=== PATIENT | male | born 1965 | race American Indian/Alaskan Native ===

== ENCOUNTER → 2019-12-07 15:50 | Outpatient (BNVA) | payer OTHER, SELFPAY | PROVIDERS: PCP Family Medicine; Referring Provider Family Medicine; Visit Provider Internal Medicine | DX: E11.65 Type 2 diabetes mellitus with hyperglycemia (principal); E21.3 Hyperparathyroidism, unspecified; I10 Essential (primary) hypertension | CPT/HCPCS: 99204 ==

== ENCOUNTER 2019-12-07 16:56 | Outpatient (CLI) | payer OTHER, SELFPAY ==
[2019-12-07 18:07] LABS: Blood Urea Nitrogen 15 mg/dL (6-20); Calcium 11.1 mg/dL (8.5-10.5); Carbon Dioxide 27 mmol/L (22-29); Chloride 101 mmol/L (98-107); Glomerular Filtration Rate 77.6 mL/min (90-130); Glucose 239 mg/dL (65-115); Osmolality Calculated 297 mOsm/kg (285-295); Phosphorus 2.3 mg/dL (2.5-4.5); Sodium 139 mmol/L (136-145)
== END 2019-12-07 16:57 | disposition home or self-care (01) ==
LOC: LAB 17:09
PROVIDERS: PCP Family Medicine; Visit Provider Internal Medicine
DX: E21.3 Hyperparathyroidism, unspecified (principal)
CPT/HCPCS: 36415; 80048; 84100

== ENCOUNTER 2019-12-19 15:10 | Outpatient (CLI) | payer OTHER, SELFPAY ==
--- NOTE | 2019-12-19 15:15 | USCV_ITS ---
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
--- NOTE | 2019-12-19 15:15 | XR_ITS ---
WS: [id number] XR knee LT 3V* [id number] REASON FOR EXAM: ACUTE PAIN OF LEFT KNEE FINDINGS: Joint spaces of the left knee are well preserved. No fracture or other focal bony abnormality is identified. No significant soft tissue abnormality is noted. XR/XR knee LT 3V* [id number] IMPRESSION: No acute abnormality of the left knee.
== END 2019-12-19 15:11 | disposition home or self-care (01) ==
LOC: US 15:13
PROVIDERS: PCP Family Medicine; Visit Provider Family Medicine
DX: M25.562 Pain in left knee (principal)
CPT/HCPCS: 73562; 93922

== ENCOUNTER → 2020-04-04 15:44 | Outpatient (BNVA) | payer OTHER, SELFPAY | PROVIDERS: PCP Family Medicine; Visit Provider Internal Medicine | DX: E11.65 Type 2 diabetes mellitus with hyperglycemia (principal); E21.3 Hyperparathyroidism, unspecified; I10 Essential (primary) hypertension | CPT/HCPCS: 99214 ==

== ENCOUNTER 2020-04-04 16:55 | Outpatient (CLI) | payer OTHER, SELFPAY ==
[2020-04-04 19:13] LABS: Estmated Average Glucose 272; Hemoglobin A1C 11.1 % (4.0-6.0)
[2020-04-04 19:59] LABS: Calcium 11.4 mg/dL (8.5-10.5); Parathyroid Hormone 92.4 pg/mL (15-65)
== END 2020-04-04 16:56 | disposition home or self-care (01) ==
PROVIDERS: PCP Family Medicine; Visit Provider Internal Medicine
DX: E11.65 Type 2 diabetes mellitus with hyperglycemia (principal); E21.3 Hyperparathyroidism, unspecified
CPT/HCPCS: 36415; 82310; 83036; 83970

== ENCOUNTER → 2020-12-31 08:18 | Outpatient (BNVA) | payer MEDICARE, SELFPAY | PROVIDERS: PCP Family Medicine; Visit Provider Internal Medicine | DX: E11.65 Type 2 diabetes mellitus with hyperglycemia (principal); E21.3 Hyperparathyroidism, unspecified; E78.5 Hyperlipidemia, unspecified; Z79.4 Long term (current) use of insulin; Z79.84 Long term (current) use of oral hypoglycemic drugs; F17.200 Nicotine dependence, unspecified, uncomplicated | CPT/HCPCS: 36415; 80053; 80061; 82306; 82310; 83036; 83970; 99214 ==

== ENCOUNTER 2020-12-31 09:09 | Outpatient (CLI) | payer MEDICARE, SELFPAY ==
[2020-12-31 10:13] LABS: Alanine Aminotransferase 19 U/L (0-41); Albumin Level 4.4 g/dL (3.5-5.2); Alkaline Phosphatase 67 IU/L (40-130); Anion Gap 17.3 (5-19); Aspartate Amino Transferase 15 U/L (0-40); Blood Urea Nitrogen 19 mg/dL (6-20); Calcium 10.6 mg/dL (8.5-10.5); Carbon Dioxide 27 mmol/L (22-29); Chloride 93 mmol/L (98-107); Chol HDL Ratio 3.76 mg/dL (1.0-5.00); Cholesterol 139 mg/dL (0-200); Globulin 2.6 g/dL (1.3-4.6); Glomerular Filtration Rate 69.2 mL/min (90-130); Glucose 281 mg/dL (65-115); HDL Cholesterol 37 mg/dL (60-100); LDL Cholesterol Calculated 27 mg/dL (50-129); LDL HDL Ratio 0.73 RATIO (0.00-3.22); Osmolality Calculated 288 mOsm/kg (285-295); Potassium 4.3 mmol/L (3.5-5.1); Sodium 133 mmol/L (136-145); Total Bilirubin 0.4 mg/dL (0.15-1.2); Triglycerides 374 mg/dL (0-150)
[2020-12-31 10:22] LABS: Parathyroid Hormone 64.5 pg/mL (15-65)
[2020-12-31 10:31] LABS: Estmated Average Glucose 252; Hemoglobin A1C 10.4 % (4.0-6.0)
[2020-12-31 11:28] LABS: 25 Hydroxy Vitamin D 44 ng/mL (30-100)
== END 2020-12-31 09:10 | disposition home or self-care (01) ==
PROVIDERS: PCP Family Medicine; Visit Provider Internal Medicine
DX: E11.65 Type 2 diabetes mellitus with hyperglycemia (principal); E21.3 Hyperparathyroidism, unspecified; E78.5 Hyperlipidemia, unspecified
CPT/HCPCS: 36415; 80053; 80061; 82306; 82310; 83036; 83970

== ENCOUNTER 2021-02-12 14:42 | Outpatient (CLI) | payer MEDICARE, SELFPAY ==
--- NOTE | 2021-02-12 15:00 | USCV_ITS ---
Aldo Alcaraz Age: 55 Gender: M : 1965 Exam Date: 02/12/2021 14:50 Ordering Phys: Destinee Capone MD ([email or web address]) Technologist: Jean Claude Espinoza Single End Sewer Exam Location: [facility] [place] Indication: PVD RIGHT LEFT Brachial 170.00 mmHg Brachial 164.00 mmHg Pressure (mmHg) Waveform Pressure (mmHg) Waveform 185.00 Above Knee 183.00 142.00 Below Knee 153.00 147.00 .NET ARCHITECT 150.00 133.00 DPA 143.00 0.86 Ankle/Brachial Index 0.88 78.00 Pre-Exercise Toe Pressure 64.00 0.46 Pre-Exercise Toe/Brachial Index 0.38 FINDINGS Abnormal resting TAWNY o .86 on the right side and 0.88 on the left side Resting TBI of 0.46 on the right and 0.38 on the left. CONCLUSIONS 1. Abnormal resting TAWNY and TBI on the right side suggesting mild peripheral artery disease 2. Abnormal resting TAWNY and TBI on the left side suggesting mild to moderate peripheral arterial disease Dr Brenda Wright MD [facility] (Electronically Signed) Final Date: 14 February 2021 15:38 S
== END 2021-02-12 14:43 | disposition home or self-care (01) ==
LOC: RAD 14:50
PROVIDERS: PCP Family Medicine; Visit Provider Internal Medicine Cardiovascular Disease
DX: I73.9 Peripheral vascular disease, unspecified (principal)
CPT/HCPCS: 93923

== ENCOUNTER 2021-02-17 08:37 | Outpatient (CLI) | payer MEDICARE, SELFPAY ==
--- NOTE | 2021-02-17 08:46 | NM_ITS ---
WS: [id number] NUCLEAR MEDICINE PARATHYROID SCAN HISTORY: Hyperparathyroidism, unspecified TECHNIQUE: Patient is injected with 19.4mCi technetium 99m Sestamibi. Static imaging of the anterior neck and upper thorax submitted at injection time and one hour postinjection. Sternal notch marker an d chin markers are placed. FINDINGS: Normal symmetric thyroid uptake on the early and late imaging. Normal uptake in the submandibular gla nds. No asymmetric areas of uptake in the delayed imaging. No evidence of parathyroid adenoma. NM/NM parathyroid [id number] IMPRESSION: No evidence of parathyroid adenoma.
== END 2021-02-17 08:38 | disposition home or self-care (01) ==
LOC: RAD 08:40
PROVIDERS: PCP Family Medicine; Visit Provider Internal Medicine
DX: E21.3 Hyperparathyroidism, unspecified (principal)
CPT/HCPCS: 78070; A9500

== ENCOUNTER → 2021-07-08 08:01 | Outpatient (BNVA) | payer MEDICARE, SELFPAY | PROVIDERS: PCP Family Medicine; Visit Provider Internal Medicine | DX: E11.65 Type 2 diabetes mellitus with hyperglycemia (principal); E21.3 Hyperparathyroidism, unspecified; F17.200 Nicotine dependence, unspecified, uncomplicated; Z79.4 Long term (current) use of insulin; Z79.84 Long term (current) use of oral hypoglycemic drugs | CPT/HCPCS: 99214 ==

== ENCOUNTER → 2021-09-24 14:29 | Outpatient (BNVA) | payer MEDICARE, SELFPAY | PROVIDERS: PCP Family Medicine; Referring Provider Podiatrist Foot & Ankle Surgery; Visit Provider Podiatrist Foot & Ankle Surgery | DX: M79.671 Pain in right foot (principal); M21.611 Bunion of right foot | CPT/HCPCS: 73630 ==

== ENCOUNTER 2021-09-24 15:10 | Inpatient (IN) | payer MEDICARE, SELFPAY ==
[2021-09-24] VITALS (9 sets, daily range): BP systolic 92–164; BP diastolic 58–90; PULSE 77–84; RESP 16–24; TEMP 36.8–36.9; O2SAT 95–100; BMI 30.6
--- NOTE | 2021-09-24 15:57 | W.ED.WOUNDLC ---
HPI - Wound/Laceration General: Chief Complaint: Wound/Laceration Stated Complaint: Dr. Grayson sent for Right foot infection Time Seen by Provider: 09/24/21 15:37 Source: patient Mode of arrival: ambulatory Limitations: no limitations History of Present Illness: 55-year-old male presents emergency room with complaint of swollen infection on his right foot. Approximately a week ago he stepped on something with his right foot and a puncture wound he was seen in [place] was started on oral antibiotics and his tetanus was updated. Follow-up with Dr. Grayson today in the office x-rays were negative please foot shows significant ecchymotic changes prickliness third toe with streaking proximally. There is a lot of swelling and some skin sloughing around the puncture sites between the second and third metatarsals. Patient is diabetic. He also is a smoker and has a history of peripheral vascular disease. He previously has had strokes and has significant residual deficit from these. Arterial Doppler study of the right lower extremity from February 2021 reviewed in the chart. Onset (ago): week(s) Extremity Location: Right: foot Place: home Associated symptoms: Denies chills, fever(s), nausea or vomiting Review of Systems Const: Denies: fever(s), chills, body aches, change in appetite, fatigue or malaise ENMT: Denies: throat pain, ear or mastoid pain, nasal discharge or nasal congestion Card: Denies: chest pain, edema, dyspnea on exertion or orthopnea Resp: Denies: dyspnea, productive cough or non-productive cough GI: Denies: abdominal pain, nausea, vomiting, hematemesis, coffee ground emesis, diarrhea, constipation, bloating, hematochezia or melena : Denies: flank pain, dysuria, urinary frequency or urinary urgency Skin/Breast: Denies: rash or pruritus PFSH ED PFSH: Medical History Diabetes Diabetic neuropathy Diaphragmatic hernia without mention of obstruction or gangrene Hyperparathyroidism Hypertension Peripheral Vascular Disease Stricture and stenosis of esophagus Stroke Surgical History History of hip surgery Family History Father Diabetes Mother Diabetes Brother Cancer colon Social History Smoking and tobacco status: current every day smoker Alcohol intake: never Substance/Drug Use: former Date of last use: months ago Other details last substance use: Smoked methamphetmaine in the past. Denies ever injection use. Marital status: Physical Exam Const: GENERAL APPEARANCE: cooperative and comfortable ORIENTATION/CONSCIOUSNESS: Yes awake HENMT: COMMON NORMALS: normocephalic, atraumatic and hearing grossly normal bilaterally HEAD & SCALP: normocephalic and atraumatic Resp: COMMON NORMALS: normal respiratory effort, No retractions, No use of accessory muscles and clear to auscultation bilaterally AUSCULTATION: clear to auscultation bilaterally Cardio: COMMON NORMALS: regular rate, regular rhythm and No murmurs present (Cardio) RATE: regular rate RHYTHM: regular rhythm GI: COMMON NORMALS: Soft to palpation and No hepatosplenomegaly present AUSCULTATION: Yes normoactive bowel sounds PALPATION: Yes Soft to palpation, No Tenderness to palpation present (GI), No Guarding due to palpation present (GI) and Yes No hepatosplenomegaly present Extremity: OTHER: Right foot shows open puncture wound between the second third metatarsals on the sole of the foot distally. There is redness erythematous streaking proximally across the dorsum of the foot and the toe itself is significantly discolored violaceous almost black color. There is no active purulent drainage but some serous drainage which is scant. No palpable popliteal or inguinal lymphadenopathy is noted. Pulses in the right lower extremities difficult to palpate Skin: COMMON NORMALS: no rashes or lesions noted GENERAL SKIN EXAM: no rashes or lesions noted Course Vital Signs: Vital signs: Vital Signs Temperature 99.1 F 09/25/21 04:00 Pulse Rate 71 09/25/21 04:00 Respiratory Rate 18 09/25/21 04:00 Blood Pressure 135/95 09/25/21 04:00 Pulse Oximetry 97 09/25/21 04:00 Oxygen Delivery Me thod 09/25/21 04:00 MDM - Wound/Laceration Medical Decision Making Significant cellulitis with concern for gas and gangrenous changes in the toe. Cultures have been done is also concerned about patient's blood flow was not appear adequate for this to heal he previously had vascular studies he was reviewed in the chart. Patient started on vancomycin discussed with podiatry as well as with hospitalist service orders written. Medical Records I reviewed the patient's medical records. Lab Data I reviewed the patient's lab results. : 09/25/21 04:19 09/25/21 04:19 Laboratory Results WBC 15.8 10^3/uL (4.0-10.0) H 09/24/21 15:37 RBC 4.13 10^6/uL (4.1-5.3) 09/24/21 15:37 Hgb 12.7 g/dL (11.7-16.6) 09/24/21 15:37 Hct 38.6 % (42.0-52.0) L 09/24/21 15:37 MCV 93.5 fl (80-94) 09/24/21 15:37 MCH 30.8 pg (28.0-34.0) 09/24/21 15:37 MCHC 32.9 g/dL (30.0-36.0) 09/24/21 15:37 RDW 12.9 % (12.1-15.1) 09/24/21 15:37 Plt Count 291 10^3/cmm (130-400) 09/24/21 15:37 MPV 11.0 fL (7.4-10.4) H 09/24/21 15:37 Neut % (Auto) 80.4 % 09/24/21 15:37 Lymph % (Auto) 9.3 % 09/24/21 15:37 [place] % (Auto) 8.7 % 09/24/21 15:37 Eos % (Auto) 0.3 % 09/24/21 15:37 Baso % (Auto) 0.3 % 09/24/21 15:37 Neut # (Auto) 12.69 10^3/uL (1.8-7.7) H 09/24/21 15:37 Lymph # (Auto) 1.5 10^3/uL (0.8-4.8) 09/24/21 15:37 [place] # (Auto) 1.4 10^3/uL (0.2-0.9) H 09/24/21 15:37 Eos # (Auto) 0.0 10^3/uL (0.0-0.8) 09/24/21 15:37 Baso # (Auto) 0.1 10^3/uL (0.0-0.1) 09/24/21 15:37 Nucleated RBC % (auto) 0 % 09/24/21 15:37 Nucleated RBCs # 0.0 /100WBC 09/24/21 15:37 Sodium 136 mmol/L (136-145) 09/24/21 15:37 Potassium 4.1 mmol/L (3.5-5.1) 09/24/21 15:37 Chloride 97 mmol/L (98-107) L 09/24/21 15:37 Carbon Dioxide 22 mmol/L (22-29) 09/24/21 15:37 Anion Gap 21.1 (5-19) H 09/24/21 15:37 BUN 19 mg/dL (6-20) 09/24/21 15:37 Creatinine 1.6 mg/dL (0.7-1.2) H 09/24/21 15:37 GFR Calculation 44.9 mL/min (90-130) L 09/24/21 15:37 Glucose 127 mg/dL (65-115) H 09/24/21 15:37 Calculated Osmolality 286 mOsm/kg (285-295) 09/24/21 15:37 Calcium 10.7 mg/dL (8.5-10.5) H 09/24/21 15:37 Total Bilirubin 0.7 mg/dL (0.15-1.2) 09/24/21 15:37 AST 14 U/L (0-40) 09/24/21 15:37 ALT 15 U/L (0-41) 09/24/21 15:37 Alkaline Phosphatase 94 U/L (40-130) 09/24/21 15:37 C-Reactive Protein 226.2 mg/L (0.0-4.9) H 09/24/21 15:37 Total Protein 7.0 g/dL (6.6-8.7) 09/24/21 15:37 Albumin 3.9 g/dL (3.5-5.2) 09/24/21 15:37 Globulin 3.1 g/dL (1.3-4.6) 09/24/21 15:37 Discharge Plan Discharge Patient Disposition: Admitted As Inpatient Admit Provider: Grayson Lacy Clinical Impression: Puncture wound of foot, right, complicated, Diabetic peripheral neuropathy associated with type 2 diabetes mellitus, Soft tissue emphysema, Cellulitis of right foot, GARETH (acute kidney injury), Hypertension, Uncontrolled type 2 diabetes mellitus Condition: Stable Coding Level of Care Code ED Mixing House Operator for Chg Fwd Exam Detailed
[2021-09-24 16:05] LABS: Basophils # 0.1 10^3/uL (0.0-0.1); Basophils % 0.3 %; Eosinophils % 0.3 %; Hematocrit 38.6 % (42.0-52.0); Hemoglobin 12.7 g/dL (11.7-16.6); Lymphocytes # 1.5 10^3/uL (0.8-4.8); Lymphocytes % 9.3 %; Mean Corpuscular HGB Conc 32.9 g/dL (30.0-36.0); Mean Corpuscular Hemoglobin 30.8 pg (28.0-34.0); Mean Corpuscular Volume 93.5 fl (80-94); Monocytes # 1.4 10^3/uL (0.2-0.9); Monocytes % 8.7 %; Neutrophils # 12.69 10^3/uL (1.8-7.7); Neutrophils % 80.4 %; Nucleated Red Blood Cells % 0 %; Platelet Count 291 10^3/cmm (130-400); Red Blood Count 4.13 10^6/uL (4.1-5.3); Red Cell Distribution Width 12.9 % (12.1-15.1); White Blood Count 15.8 10^3/uL (4.0-10.0)
--- NOTE | 2021-09-24 16:06 | ECG_ITS ---
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 Measurements Intervals [place] Rate: 80 P: 20 [place]: 153 QRS: -18 QRSD: 96 T: 48 QT: 345 QTc: 399 Interpretive Statements SINUS RHYTHM WITH OCCASIONAL VENTRICULAR PREMATURE COMPLEXES Compared to ECG 10/26/2018 06:56:49 Ventricular premature complex(es) now present Electronically Signed On 09-24-2021 17:16:42 CDT by Que Gomes M.D. [email or web address]
[2021-09-24 16:24] LABS: Alanine Aminotransferase 15 U/L (0-41); Albumin Level 3.9 g/dL (3.5-5.2); Alkaline Phosphatase 94 U/L (40-130); Anion Gap 21.1 (5-19); Aspartate Amino Transferase 14 U/L (0-40); Blood Urea Nitrogen 19 mg/dL (6-20); C Reactive Protein 226.2 mg/L (0.0-4.9); Calcium 10.7 mg/dL (8.5-10.5); Carbon Dioxide 22 mmol/L (22-29); Chloride 97 mmol/L (98-107); Globulin 3.1 g/dL (1.3-4.6); Glomerular Filtration Rate 44.9 mL/min (90-130); Glucose 127 mg/dL (65-115); Osmolality Calculated 286 mOsm/kg (285-295); Potassium 4.1 mmol/L (3.5-5.1); Sodium 136 mmol/L (136-145); Total Bilirubin 0.7 mg/dL (0.15-1.2)
[2021-09-24] MEDS: vancomycin 1,000 MG in sodium chloride 0.9% 250 ML 250 MG IV (16:54)
--- NOTE | 2021-09-24 16:56 | PC.NURSE ---
PT RIGHT POST TIB PULSE 80 BPM BY DOPPLER
--- NOTE | 2021-09-24 17:05 | PC.NURSE ---
PT PLACED ON CONTINUOUS NIBP, SPO2, AND CM
--- NOTE | 2021-09-24 18:07 | P.CONIM_ITS ---
Providers/Reason For Consult Consulting Physician/Specialty*: Podiatry Reason for Consult*: Right foot gas gangrene Attending Physician: Grayson Lacy Primary Care Provider: Dillon Stein History of Present Illness History of Present Illness Aldo Alcaraz is a 55-year-old male who presents to ED after being sent from [facility] (Dr. Grayson) with puncture wound to the right forefoot.? He noticed a metal staple inside of his shoe that was poking up into his foot this past weekend and went to the emergency department at [facility] in [place] on 09/22/2021.? They stated that at that point his daughter who works at the emergency department here at [facility] noticed that his foot had normal color, no redness or bruising.? They report a single dose of IM antibiotic and being discharged on oral antibiotics which he began taking immediately.? Since Wednesday he has experienced increased redness and bruising to the right foot that is now starting to streak to the level of the ankle.? Patient is uncontrolled diabetic with peripheral polyneuropathy.? Patient denies any subjective nausea, vomiting, fever, chills, shortness of breath or chest pain. Review of Systems General: Reports: 10 or more systems reviewed and unremarkable except in HPI and below Musc: Reports: joint stiffness Skin/Breast: Reports: non-healing lesions and lesions Neuro: Reports: numbness in extremities Medications/Allergies Home Medications Medication Instructions Recorded Confirmed Last Taken Type amlodipine 10 mg tablet 10 mg PO BEDTIME 12/07/19 09/24/21 09/23/21 History atorvastatin 40 mg tablet 40 mg PO BEDTIME 12/07/19 09/24/21 09/23/21 History baclofen 10 mg tablet 10 mg PO BID PRN Pain 12/07/19 09/24/21 09/24/21 History cholecalciferol (vitamin D3) 50 50 mcg PO DAILY 12/07/19 09/24/21 09/24/21 History mcg (2,000 unit) capsule clopidogrel 75 mg tablet 75 mg PO DAILY 12/07/19 09/24/21 09/24/21 History fluoxetine 20 mg tablet 20 mg PO DAILY 12/07/19 09/24/21 09/24/21 History lisinopril 40 mg tablet 40 mg PO DAILY 12/07/19 09/24/21 09/24/21 History pantoprazole 20 mg tablet,delayed 20 mg PO DAILY 12/07/19 09/24/21 09/24/21 History release tamsulosin 0.4 mg capsule 0.4 mg PO BEDTIME 12/07/19 09/24/21 09/23/21 History metformin 1,000 mg tablet 1,000 mg PO BID #180 tabs 12/08/19 09/24/21 09/24/21 Rx atenolol 100 mg tablet 100 mg PO BEDTIME 08/20/20 09/24/21 09/23/21 History aspirin 81 mg tablet,delayed 325 mg PO DAILY 10/01/20 09/24/21 09/24/21 History release blood-glucose meter,continuous #1 ea 07/17/21 09/24/21 Unknown Rx (Dexcom G6 Aircraft Engine Mechanic Supervisor) blood-glucose sensor (Dexcom G6 #3 ea 07/17/21 09/24/21 Unknown Rx Sensor) blood-glucose transmitter (Dexcom #1 ea 07/17/21 09/24/21 Unknown Rx G6 Transmitter) flash glucose scanning reader #1 ea 07/30/21 09/24/21 Unknown Rx (FreeStyle April 2 [place]) flash glucose sensor (FreeStyle #6 ea 07/30/21 09/24/21 Unknown Rx April 2 Sensor) hydroxyzine HCl 25 mg tablet 25 mg PO BID PRN Anxiety 08/17/21 09/24/21 Unknown History ciprofloxacin HCl 500 mg tablet 500 mg PO BID 09/24/21 09/24/21 09/24/21 History gabapentin 400 mg capsule 400 mg PO BID 09/24/21 09/24/21 09/24/21 History hydralazine 10 mg tablet 10 mg PO Q6H PRN Blood Pressure 09/24/21 09/24/21 09/24/21 History hydrochlorothiazide 25 mg tablet 25 mg PO DAILY 09/24/21 09/24/21 09/24/21 History insulin detemir U-100 100 unit/mL 44 unit SUBCUT BID 09/24/21 09/24/21 09/24/21 History (3 mL) subcutaneous pen (Levemir FlexTouch U-100 Insulin) insulin lispro 100 unit/mL See Rx Instructions .Route .COMPLEX 09/24/21 09/24/21 09/24/21 History subcutaneous pen (Humalog KwikPen (U-100) Insulin) Allergies Allergy/AdvReac Type Severity Reaction Status Date / Time No Known Allergies Allergy Verified 09/24/21 14:27 PFSH Acute PFSH: Medical History Diabetes Hyperparathyroidism Hypertension Peripheral Vascular Disease Stroke Surgical History History of hip surgery Family History Father Diabetes Mother Diabetes Brother Cancer colon Social History Smoking and tobacco status: current every day smoker Alcohol intake: never Vitals/I&O/Wt Last Vital Signs Temp 98.2 F 09/24/21 15:29 Pulse 80 09/24/21 16:19 Resp 24 H 09/24/21 15:29 BP 92/63 09/24/21 15:29 Pulse Ox 98 09/24/21 15:29 O2 Del Method 09/24/21 15:29 Weight last 48 hrs Weight 245 lb Physical Exam Narrative: GENERAL: Patient is alert and oriented ?3 and in no acute distress.? The following is a focused right lower extremity exam.? Patient accompanied by his daughter. VASCULAR: Dorsalis pedis nonpalpable.? Posterior tibial arteries diminished.? Capillary refill time less than 5 seconds to the distal hallux bilaterally. Calf is supple and nontender proximally and distally.? Decreased pedal hair growth.? Decreased skin temperature at the distal tuft of the right third toe compared to adjacent toes. NEUROLOGICAL: Protective sensation intact 0/10 sites, tested with [place] Marjorie monofilament to bilateral feet. DERMATOLOGICAL: [place] dusky appearance/blue undertone to the right third toe.? Puncture wound subthird metatarsal head right plantar forefoot probes medially to the second intermetatarsal space also probes laterally and dorsal to the third intermetatarsal space and can be probed to the dorsum of the foot.? Wound measures 0.9 cm in length, 0.6 cm in width and probes 3 cm deep.? Periwound erythema appreciated with proximal streaking to the level of the midfoot almost reaches near the ankle anteriorly.? Clear fluid-filled bullae to the plantar sulcus of the right third toe.? MUSCULOSKELETAL: No pain with palpation to the right plantar forefoot secondary to neuropathy.? No pain with posterior calf squeeze. IMAGIN views of the left foot reviewed which show increased soft tissue density around the third digit of the right foot. Radiolucencies consistent with subcutaneous emphysema visualized in the soft tissues surrounding the right third proximal phalanx extending into the third intermetatarsal space. Data : 09/24/21 15:37 09/24/21 15:37 Micro: Microbiology 09/24/21 16:26 Blood Culture - Preliminary Blood SPECIMEN COLLECTED 09/24/21 16:20 Blood Culture - Preliminary Blood SPECIMEN COLLECTED A&P Assessment and plan (1) Cellulitis of right foot: Status: Acute (2) Soft tissue emphysema: Status: Acute (3) Puncture wound of foot, right, complicated: Status: Acute (4) Diabetic peripheral neuropathy associated with type 2 diabetes mellitus: Status: Acute Consult Attestations Medical Necessity Statement: PLAN: -NPO at midnight for procedure 09/25/21--I&D right foot w/possible 3rd toe amp -Patient seen and evaluated in the emergency department -Lengthy discussion was had with the patient and patient's about the extent of the infection of the right foot that necessitates surgical intervention which includes incision and drainage and likely amputation of right foot third digit. All patient questions were answered patient satisfaction at this time. -Surgery tomorrow 09/25/21 -Continue broad spectrum IV antibiotics -Strongly recommend vascular intervention as patient has longstanding peripheral arterial disease. Surgical intervention will be for source control. However, if vascular compromise is not addressed patient runs a risk of worsening infection and limb loss -Monitor wound cultures Coding Level of Care Code Acute Microsoft Developer for g Fwd Diagnoses Cellulitis of right foot L03.115 Soft tissue emphysema T79.7XXA Puncture wound of foot, right, complicated S91.331A Diabetic peripheral neuropathy associated with type 2 diabetes mellitus E11.42
[2021-09-24] MEDS: HYDROmorphone 1 mg/mL INJ 1 mL IVP (18:54)
--- NOTE | 2021-09-24 19:24 | P.HP_ITS ---
Providers/Chief Complaint Admitting Physician: Grayson Lacy Primary Care Provider: Dillon Stein Chief Complaint: Dr. Grayson sent for Right foot infection History of Present Illness Pleasant 55-year-old gentleman with past history of CVA, with residual aphasia diabetes, PAD, HTN, HLD, smoking came to ER after initially assessment earlier today at podiatry clinic due to nonhealing wound of the right plantar surface of the foot, with foot swelling, swelling of the toes, as well as dusky patchy purplish discoloration of third right toe, with tracking up on the dorsal foot. He has been having quite a bit of pain in the right foot as well. The wound reportedly originated after a puncture by a staple a week ago. He was initially seen at [facility] ER 09/23, he had received an antibiotic infusion, and was discharged and appears on a course of 10 days of ciprofloxacin. He has otherwise been in similar state of health, after stroke he usually ambulates sometimes using a cane. He has been cutting down on smoking. He has known PAD, with last lower extremity arterial Doppler study on 02/12/2021 which showed abnormal TAWNY and TBI, on the right side TAWNY 0.86, TBI 0.46. On the left side TAWNY 0.88, TBI 0.38. PT pulses reported dopplerable by bedside Doppler in ER. Review of Systems Const: Denies: fever(s), chills, body aches or malaise Eyes: Denies: change in vision, eye discomfort or eye redness ENMT: Denies: throat pain, oral sores or ear or mastoid pain Card: Denies: chest pain, edema, pre-syncope or dyspnea on exertion Resp: Denies: dyspnea, productive cough, change in phlegm color or hemoptysis GI: Denies: abdominal pain, nausea, vomiting, diarrhea, constipation, hematochezia or melena : Denies: flank pain, difficulty urinating, urinary frequency or hematuria Musc: Reports: extremity pain and extremity swelling; Denies: back pain, joint swelling or joint redness Skin/Breast: Reports: erythema and non-healing lesions Neuro: Denies: headache(s), numbness in extremities, weakness in extremities, dizziness, confusion or seizure-like activity Endo: Denies: polyuria or polydipsia Pb/Lymph: Denies: easy bleeding or tender lymph nodes All/Imm: Denies: urticaria or tongue swelling Medications/Allergies Home Medications Medication Instructions Recorded Confirmed Last Taken Type amlodipine 10 mg tablet 10 mg PO BEDTIME 12/07/19 09/24/21 09/23/21 History atorvastatin 40 mg tablet 40 mg PO BEDTIME 12/07/19 09/24/21 09/23/21 History baclofen 10 mg tablet 10 mg PO BID PRN Pain 12/07/19 09/24/21 09/24/21 History cholecalciferol (vitamin D3) 50 50 mcg PO DAILY 12/07/19 09/24/21 09/24/21 History mcg (2,000 unit) capsule clopidogrel 75 mg tablet 75 mg PO DAILY 12/07/19 09/24/21 09/24/21 History fluoxetine 20 mg tablet 20 mg PO DAILY 12/07/19 09/24/21 09/24/21 History lisinopril 40 mg tablet 40 mg PO DAILY 12/07/19 09/24/21 09/24/21 History pantoprazole 20 mg tablet,delayed 20 mg PO DAILY 12/07/19 09/24/21 09/24/21 History release tamsulosin 0.4 mg capsule 0.4 mg PO BEDTIME 12/07/19 09/24/21 09/23/21 History metformin 1,000 mg tablet 1,000 mg PO BID #180 tabs 12/08/19 09/24/21 09/24/21 Rx atenolol 100 mg tablet 100 mg PO BEDTIME 08/20/20 09/24/21 09/23/21 History aspirin 81 mg tablet,delayed 325 mg PO DAILY 10/01/20 09/24/21 09/24/21 History release blood-glucose meter,continuous #1 ea 07/17/21 09/24/21 Unknown Rx (Dexcom G6 Cold Header) blood-glucose sensor (Dexcom G6 #3 ea 07/17/21 09/24/21 Unknown Rx Sensor) blood-glucose transmitter (Dexcom #1 ea 07/17/21 09/24/21 Unknown Rx G6 Transmitter) flash glucose scanning reader #1 ea 07/30/21 09/24/21 Unknown Rx (FreeStyle April 2 [place]) flash glucose sensor (FreeStyle #6 ea 07/30/21 09/24/21 Unknown Rx April 2 Sensor) hydroxyzine HCl 25 mg tablet 25 mg PO BID PRN Anxiety 08/17/21 09/24/21 Unknown History ciprofloxacin HCl 500 mg tablet 500 mg PO BID 09/24/21 09/24/21 09/24/21 History gabapentin 400 mg capsule 400 mg PO BID 09/24/21 09/24/21 09/24/21 History hydralazine 10 mg tablet 10 mg PO Q6H PRN Blood Pressure 09/24/21 09/24/21 09/24/21 History hydrochlorothiazide 25 mg tablet 25 mg PO DAILY 09/24/21 09/24/21 09/24/21 History insulin detemir U-100 100 unit/mL 44 unit SUBCUT BID 09/24/21 09/24/21 09/24/21 History (3 mL) subcutaneous pen (Levemir FlexTouch U-100 Insulin) insulin lispro 100 unit/mL See Rx Instructions .Route .COMPLEX 09/24/21 09/24/21 09/24/21 History subcutaneous pen (Humalog KwikPen (U-100) Insulin) Allergies Allergy/AdvReac Type Severity Reaction Status Date / Time No Known Allergies Allergy Verified 09/24/21 14:27 PFSH Acute PFSH: Medical History (Updated 09/24/21 @ 19:47 by Grayson Lacy MD) Diabetes Diabetic neuropathy Diaphragmatic hernia without mention of obstruction or gangrene Hyperparathyroidism Hypertension Peripheral Vascular Disease Stricture and stenosis of esophagus Stroke Surgical History History of hip surgery Family History Father Diabetes Mother Diabetes Brother Cancer colon Social History Smoking and tobacco status: current every day smoker Alcohol intake: never Substance/Drug Use: former Date of last use: months ago Other details last substance use: Smoked methamphetmaine in the past. Denies ever injection use. Marital status: Vitals/I&O/Wt Last Vital Signs Temp 98.2 F 09/24/21 15:29 Pulse 77 09/24/21 18:30 Resp 20 H 09/24/21 18:54 BP 127/69 09/24/21 18:30 Pulse Ox 100 09/24/21 18:54 O2 Del Method 09/24/21 18:30 09/24/21 09/24/21 09/24/21 06:59 14:59 22:59 Intake Total 250 / 250 Balance 250 / 250 Weight last 48 hrs Weight 111.13 kg Physical Exam Const: COMMON NORMALS: patient oriented x3 and alert GENERAL APPEARANCE: cooperative ORIENTATION/CONSCIOUSNESS: Yes awake HENMT: COMMON NORMALS: oropharynx normal Neck/C-Spine: COMMON NORMALS: no JVD Resp: COMMON NORMALS: normal respiratory effort and clear to auscultation bilaterally AUSCULTATION: clear to auscultation bilaterally Cardio: COMMON NORMALS: no JVD, regular rhythm, S1 normal heart sound present, S2 normal heart sound present and No murmurs present (Cardio) RHYTHM: regular rhythm HEART SOUNDS: S1 normal heart sound present and S2 normal heart sound present GI: COMMON NORMALS: Normal to inspection, nondistended, normoactive bowel sounds present, Soft to palpation and non-tender PALPATION: Yes Soft to palpation Extremity: COMMON NORMALS: no joint enlargement and no pedal edema OTHER: Erythema, mild swelling of distal right foot. Neuro: COMMON NORMALS: patient oriented x3 and moves all extremities SENSORIUM/ORIENTATION: Yes alert Skin: COMMON NORMALS: no rashes or lesions noted GENERAL SKIN EXAM: no rashes or lesions noted OTHER: Erythema of distal right foot, swelling and patchy irineo discoloration of third right toe Puncture wound on plantar right foot, 0.5 cm, currently no active drainage. Data : 09/24/21 15:37 09/24/21 15:37 Micro: Microbiology 09/24/21 16:26 Blood Culture - Preliminary Blood SPECIMEN COLLECTED 09/24/21 16:20 Blood Culture - Preliminary Blood SPECIMEN COLLECTED A&P Assessment and plan (1) Puncture wound of foot, right, complicated: Nonhealing puncture wound on plantar surface of the right foot, swelling of the distal foot, toes, purple patchy discoloration and swelling of the middle right toe tracking up on the dorsal foot. No foreign body noted on the x-ray. Fluid bolus dopplerable with bedside Doppler. Known PAD, ABIs as above. Leukocytosis 15.8, although so far not fitting sepsis criteria. Has been on ciprofloxacin, continue, but also needs gram-positive cultures, was started on vancomycin, continue. Clindamycin. Was assessed by podiatry in office, and podiatry consultation here appreciated for intraoperative evaluation, cleanout, possible third toe amputation. Still pressures appear to be above threshold for healing, however, podiatry recommendation appreciated with strong concern for nonhealing due to underlying PAD, will request consultation with cardiac interventionalist. Of note he also has GARETH as discussed with him and family which will complicate things with regards to CT angiogram or angiography if needed. We will obtain repeat Doppler ultrasound TAWNY, TBI (for possible). Discussed also concern for possibility of deeper tissue infection. Possibility of bone infection. Status: Acute (2) Cellulitis of right foot: Status: Acute (3) Soft tissue emphysema: Status: Acute (4) Diabetic peripheral neuropathy associated with type 2 diabetes mellitus: Status: Acute (5) GARETH (acute kidney injury): Creatinine up to 1.6. Hold lisinopril. Assess urine studies, kidney, bladder ultrasound. Status: Acute Plan Diabetes with peripheral neuropathy Smoking addiction: He has been cutting down on smoking. History of CVA with residual aphasia HTN Hyperparathyroidism Attestations Medical Necessity Statement*: Admission of over 2 midnights is anticipated for assessment of management of nonhealing puncture wound on the right foot, with resultant cellulitis and possibly deeper subcutaneous tissue infection. Coding Level of Care Code Acute Physical Aerodynamicist for ed [place] Diagnoses Puncture wound of foot, right, complicated S91.331A Cellulitis of right foot L03.115 Soft tissue emphysema T79.7XXA Diabetic peripheral neuropathy associated with type 2 diabetes mellitus E11.42 GARETH (acute kidney injury) N17.9
--- NOTE | 2021-09-24 20:09 | US_ITS ---
WS: [id number] Bilateral renal ultrasound, 09/24/2021 Clinical Data: johana Comparison: None. Findings: The right kidney measures 11.1 cm x 6.7 cm x 5.3 cm and the left kidney is 11.5 cm x 7.1 cm x 4.9 cm. There are no cysts, masses or hydronephrosis. The renal cortical margin is normal. No renal calculi are seen. The prostate measured 2.55 x 3.17 cm in transverse and AP diameter. The bladder was scanned and and had a prevoiding volume of 167 mL. The post void volume was 34 mL.. US/US renal BI with PV bladder Impression: 1. Negative bilateral renal ultrasound. 2. Prevoid volume of 167 mL and postvoid volume of 34 mL.
[2021-09-24] MEDS: heparin 5,000 unit/mL INJ 1 mL 5000 UNIT SUBCUT (21:33)
[2021-09-24] MEDS: ciprofloxacin 400 MG/200 ML PREMIX 200 MG IV (21:33)
--- NOTE | 2021-09-24 21:33 | PC.PHAR ---
Vancomycin is dosed at 1gm IVPB every 12 hours to produce a predicted trough level of 13.83 (population based pharmacokinetic analysis). A trorugh level has been ordered from the lab to be obtained before the fourth dose to confirm and adjust if needed.
[2021-09-24] MEDS: clindamycin 600 MG/50 ML PREMIX 100 MG IV (21:34)
[2021-09-24] MEDS: sodium chloride 0.9% 1,000 ML 100 ML IV (21:34)
[2021-09-24] MEDS: tamsulosin 0.4 mg Capsule PO (21:35)
[2021-09-24] MEDS: atenolol 50 mg Tablet 100 MG PO (21:35)
[2021-09-24] MEDS: atorvastatin 40 mg Tablet PO (21:35)
[2021-09-24 22:12] LABS: Glucose Point of Care 336 mg/dL (70-110)
[2021-09-24 22:12] LABS: Glucose Point of Care 414 mg/dL (70-110)
[2021-09-24] MEDS: insulin lispro 100 unit/1 mL SUBCUT (22:14)
[2021-09-24] MEDS: acetaminophen 325 mg Tablet 650 MG PO (22:18)
[2021-09-25] VITALS (22 sets, daily range): BP systolic 96–158; BP diastolic 58–95; PULSE 67–80; RESP 12–78; TEMP 36.1–37.8; O2SAT 88–99
[2021-09-25 02:23] LABS: Urine Random Sodium 26 mmol/L
[2021-09-25 02:27] LABS: Urea Nitrogen,Urine Random 648 mg/dL
[2021-09-25] MEDS: clindamycin 600 MG/50 ML PREMIX 100 MG IV ×2 (04:18→20:31)
[2021-09-25 05:00] LABS: Basophils # 0.1 10^3/uL (0.0-0.1); Basophils % 0.5 %; Eosinophils # 0.1 10^3/uL (0.0-0.8); Hematocrit 32.9 % (42.0-52.0); Hemoglobin 10.8 g/dL (11.7-16.6); Lymphocytes # 1.5 10^3/uL (0.8-4.8); Lymphocytes % 11.8 %; Mean Corpuscular HGB Conc 32.8 g/dL (30.0-36.0); Mean Corpuscular Hemoglobin 30.3 pg (28.0-34.0); Mean Corpuscular Volume 92.4 fl (80-94); Mean Platelet Volume 11.3 fL (7.4-10.4); Monocytes # 1.4 10^3/uL (0.2-0.9); Monocytes % 11.3 %; Neutrophils # 9.37 10^3/uL (1.8-7.7); Nucleated Red Blood Cells % 0 %; Platelet Count 221 10^3/cmm (130-400); Red Blood Count 3.56 10^6/uL (4.1-5.3); White Blood Count 12.5 10^3/uL (4.0-10.0)
[2021-09-25 05:26] LABS: Alanine Aminotransferase 12 U/L (0-41); Albumin Level 3.4 g/dL (3.5-5.2); Alkaline Phosphatase 77 U/L (40-130); Anion Gap 17.7 (5-19); Aspartate Amino Transferase 9 U/L (0-40); Blood Urea Nitrogen 19 mg/dL (6-20); Calcium 9.4 mg/dL (8.5-10.5); Carbon Dioxide 23 mmol/L (22-29); Chloride 98 mmol/L (98-107); Globulin 2.4 g/dL (1.3-4.6); Glomerular Filtration Rate 52.4 mL/min (90-130); Glucose 197 mg/dL (65-115); Osmolality Calculated 288 mOsm/kg (285-295); Potassium 3.7 mmol/L (3.5-5.1); Sodium 135 mmol/L (136-145); Total Bilirubin 0.4 mg/dL (0.15-1.2); Total Protein 5.8 g/dL (6.6-8.7)
[2021-09-25] MEDS: vancomycin 1,000 MG in sodium chloride 0.9% 250 ML 250 MG IV ×2 (05:26→18:02)
[2021-09-25] MEDS: sodium chloride 0.9% 1,000 ML 100 ML IV ×2 (05:27→17:59)
[2021-09-25 06:32] LABS: Glucose Point of Care 219 mg/dL (70-110)
[2021-09-25] MEDS: ondansetron 2 mg/ML SDV 2 mL 4 MG IVP (09:31)
[2021-09-25] MEDS: HYDROmorphone 1 mg/mL INJ 1 mL IVP ×3 (09:31→23:07)
[2021-09-25] MEDS: aspirin 81 mg EC Tablet 325 MG PO (09:38)
[2021-09-25] MEDS: pantoprazole DR 40 mg Tablet 20 MG PO (09:38)
[2021-09-25] MEDS: ciprofloxacin 400 MG/200 ML PREMIX 200 MG IV ×2 (09:39→21:23)
[2021-09-25] MEDS: gabapentin 400 mg Capsule PO ×2 (09:39→18:02)
[2021-09-25] MEDS: fluoxetine 20 mg Capsule PO (09:39)
[2021-09-25] MEDS: clopidogrel 75 mg Tablet PO (09:39)
[2021-09-25] MEDS: hydroCHLOROthiazide 25 mg Tablet PO (09:39)
[2021-09-25] MEDS: insulin lispro 100 unit/1 mL SUBCUT ×2 (09:39→23:30)
--- NOTE | 2021-09-25 10:27 | PC.CHAP ---
Pastoral Care Encounter/Spiritual Assessment Type of Contact [] Declined licensing officer visit [] Patient/Family/Request visit [] Outpatient visit [] Follow-up visit [] Physician referral [] Code/Alert [x] Routine visit [] Staff referral [] Actively dying [] Patient sleeping [] Family support [] [] Out of room [] Palliative care [] [x] Receiving care in room [] Pre-surgical visit [] Trauma [] Long length of stay [] ICU visit [] Other: Relational/Emotional Strength [] Patient feels connected with others/family/visitors/staff [x] Distress [] Loneliness/isolation [] Abandonment Spirituality of Patient [] Person of Ayesha [] Attends Buddhist of their Ayesha [] Believes in Prayer [] Reads Bible or Roman Catholic materials [] There are Spiritual issues to be addressed Plow Mechanic Interventions [x] Prayer [x] Active listening [x] Non-anxious presence [x] Spiritual/emotional support [] Crisis/trauma care [x] Spiritual counseling [] Bereavement support [] Provided bereavement packet [] Provided Bible/devotional materials [] Provided toy/stuffed animal, coloring book to patient or family member [] Provided Communion [] Anointing/[place] [] Salvation [x] Completed spiritual assessment [] Other: Impact on Illness or Injury [] Angry [] Fearful [x] Anxious [] Often cries [] Exhaustion [] Unable to work [] Unable to attend yazidism [] Unable to walk/stand [] Unable to read [] Unable to drive [] Unable to eat/drink [] Unable to sleep [] Unable to be with family [] Patient intubated [] Other: Summary negative about his health lots of other health problems not sure when he can go home Time spent with patient 10 mins
--- NOTE | 2021-09-25 10:53 | PM.PN ---
Subjective Subjective: Patient seen the bedside this morning. Patient's is in the room with him as well. Patient states that he is dealing with right foot pain as well as left calf cramping. I think that it might be due to neuropathy and him not getting his normal dosages of gabapentin yesterday during his admission process. They are also concerned about the right second toe now turning bluish-purple, similar to these third toe. Other than pain, the patient denies any constitutional symptoms. Denies any other pedal complaints at this time. Patient is n.p.o. for procedure this afternoon. Vitals/I&O/Wt Last Vital Signs Temp 100.1 F H 09/25/21 08:00 Pulse 75 09/25/21 08:00 Resp 21 H 09/25/21 09:31 BP 134/84 09/25/21 08:00 Pulse Ox 94 09/25/21 08:00 O2 Del Method 09/25/21 08:00 09/24/21 09/25/21 09/25/21 22:59 06:59 14:59 Intake Total 600 / 600 788.333 / 1388.333 Output Total 225 / 225 Balance 600 / 600 563.333 / 1163.333 Weight last 48 hrs Weight 245 lb Physical Exam Narrative: GENERAL: A&O x 3 VASCULAR: DP/PT pulses palpable 0/4 with delayed capillary refill DERMATOLOGICAL: Right foot second and third digits are dusky in appearance with purpleish bluish discoloration third worse than second. Ecchymoses and necrotic changes to second intermetatarsal space. Plantar aspect of second metatarsal shows full-thickness wound that probes dorsally to skin. Superficially measures 1.5 x 1.5 cm with 3.0 cm depth positive probe to bone. Active purulent drainage. Crepitus of third digit MUSCULOSKELETAL: Tenderness with palpation of second and third intermetatarsal spaces. NEUROLOGICAL: Neurological sensation to the affected foot and ankle is diminished through L4-S1 dermatomes Data : 09/25/21 04:19 09/25/21 04:19 Micro: Microbiology 09/24/21 16:26 Blood Culture - Preliminary Blood SPECIMEN COLLECTED 09/24/21 16:20 Blood Culture - Preliminary Blood SPECIMEN COLLECTED Attestations Medical Necessity Statement*: PLAN: -N.p.o. for procedure today 09/26/2021 for incision and debridement with removal of nonviable tissue and bone with possible third digit amputation -Continue IV antibiotic therapy -Monitor micro ID and sensitivity -Appreciate vascular intervention recommendations -I will discuss surgical findings with primary team Coding Level of Care Code Acute Street Flusher Driver for Jennifer Mcleod
[2021-09-25 11:17] LABS: Glucose Point of Care 245 mg/dL (70-110)
--- NOTE | 2021-09-25 12:21 | P.ANESASSM_ITS ---
Pre-Anesthetic Assessment Height/Weight: Height 1.91 m Weight 111.13 kg Temp Pulse Resp BP Pulse Ox O2 Del Method 99.6 F 71 18 123/72 99 09/25/21 12:08 09/25/21 12:08 09/25/21 12:08 09/25/21 12:08 09/25/21 12:08 09/25/21 12:08 Operation Date: 09/25/21 12:50 Proposed Procedures p Incision And Drainage Right Foot(Right) - Ye Pruett DPM s poss Amputation 3 Toe(Right) - Ye Pruett DPM Familial anesthetic complications: None Was Beta Aruna taken within 24 hours: N/A Was Clonidine taken within 24 hours: N/A Last intake: Intake Last Liquid Date 09/24/21 Last Liquid Time 23:00 Last Solid Date 09/24/21 Last Solid Time 20:30 Social Tobacco and No alcohol Exam alert, oriented x 3, clear to auscultation bilaterally and regular rate & rhythm Airway Mallampati: Class III Dentition: false GARETH GI Gastroesophageal Reflux Disease Metabolic Diabetes Mellitus and Hyperlipidemia hyperPTh Musc/[facility] CVA - asphasia Anesthetic Plan ASA status: 4 Anesthesia: General Risk of > 500 ml blood loss (7ml/kg in children): No Medications/Allergies Home Medications Medication Instructions Recorded Confirmed Last Taken Type amlodipine 10 mg tablet 10 mg PO BEDTIME 12/07/19 09/24/21 09/23/21 History atorvastatin 40 mg tablet 40 mg PO BEDTIME 12/07/19 09/24/21 09/23/21 History baclofen 10 mg tablet 10 mg PO BID PRN Pain 12/07/19 09/24/21 09/24/21 History cholecalciferol (vitamin D3) 50 50 mcg PO DAILY 12/07/19 09/24/21 09/24/21 History mcg (2,000 unit) capsule clopidogrel 75 mg tablet 75 mg PO DAILY 12/07/19 09/24/21 09/24/21 History fluoxetine 20 mg tablet 20 mg PO DAILY 12/07/19 09/24/21 09/24/21 History lisinopril 40 mg tablet 40 mg PO DAILY 12/07/19 09/24/21 09/24/21 History pantoprazole 20 mg tablet,delayed 20 mg PO DAILY 12/07/19 09/24/21 09/24/21 Hist ory release tamsulosin 0.4 mg capsule 0.4 mg PO BEDTIME 12/07/19 09/24/21 09/23/21 History metformin 1,000 mg tablet 1,000 mg PO BID #180 tabs 12/08/19 09/24/21 09/24/21 Rx atenolol 100 mg tablet 100 mg PO BEDTIME 08/20/20 09/24/21 09/23/21 History aspirin 81 mg tablet,delayed 325 mg PO DAILY 10/01/20 09/24/21 09/24/21 History release blood-glucose meter,continuous #1 ea 07/17/21 09/24/21 Unknown Rx (Dexcom G6 [employer]) blood-glucose sensor (Dexcom G6 #3 ea 07/17/21 09/24/21 Unknown Rx Sensor) blood-glucose transmitter (Dexcom #1 ea 07/17/21 09/24/21 Unknown Rx G6 Transmitter) flash glucose scanning reader #1 ea 07/30/21 09/24/21 Unknown Rx (FreeStyle April 2 [place]) flash glucose sensor (FreeStyle #6 ea 07/30/21 09/24/21 Unknown Rx April 2 Sensor) hydroxyzine HCl 25 mg tablet 25 mg PO BID PRN Anxiety 08/17/21 09/24/21 Unknown History ciprofloxacin HCl 500 mg tablet 500 mg PO BID 09/24/21 09/24/21 09/24/21 History gabapentin 400 mg capsule 400 mg PO BID 09/24/21 09/24/21 09/24/21 History hydralazine 10 mg tablet 10 mg PO Q6H PRN Blood Pressure 09/24/21 09/24/21 09/24/21 History hydrochlorothiazide 25 mg tablet 25 mg PO DAILY 09/24/21 09/24/21 09/24/21 History insulin detemir U-100 100 unit/mL 44 unit SUBCUT BID 09/24/21 09/24/21 09/24/21 History (3 mL) subcutaneous pen (Levemir FlexTouch U-100 Insulin) insulin lispro 100 unit/mL See Rx Instructions .Route .COMPLEX 09/24/21 09/24/21 09/24/21 History subcutaneous pen (Humalog KwikPen (U-100) Insulin) Allergies Allergy/AdvReac Type Severity Reaction Status Date / Time No Known Allergies Allergy Verified 09/24/21 14:27 Current Medications Generic Name Dose Route Start Last Admin Trade Name Dominicq PRN Reason Stop Dose Admin Acetaminophen 650 mg 09/24/21 20:09 09/24/21 22:18 Acetaminophen 325 Mg Tablet PO 650 mg Q6H PRN Administration Mild/Mod Pain Or Temp >/= 101 Aspirin 325 mg 09/25/21 09:00 09/25/21 09:38 Aspirin 81 Mg Ec Tablet PO 325 mg DAILY ABBEY Administration Atenolol 100 mg 09/24/21 21:00 09/24/21 21:35 Atenolol 50 Mg Tablet PO 100 mg BEDTIME ABBEY Administration Atorvastatin Calcium 40 mg 09/24/21 21:00 09/24/21 21:35 Atorvastatin 40 Mg Tablet PO 40 mg BEDTIME ABBEY Administration Clopidogrel Bisulfate 75 mg 09/25/21 09:00 09/25/21 09:39 Clopidogrel 75 Mg Tablet PO 75 mg DAILY ABBEY Administration Fluoxetine HCl 20 mg 09/25/21 09:00 09/25/21 09:39 Fluoxetine 20 Mg Capsule PO 20 mg DAILY ABBEY Administration Gabapentin 400 mg 09/25/21 09:00 09/25/21 09:39 Gabapentin 400 Mg Capsule PO 400 mg BID ABBEY Administration Hydrochlorothiazide 25 mg 09/25/21 09:00 09/25/21 09:39 Hydrochlorothiazide 25 Mg Tablet PO 25 mg DAILY ABBEY Administration Hydromorphone HCl 2 mg 09/24/21 20:09 09/25/21 06:58 Hydromorphone 4 Mg Tablet PO 2 mg Q6H PRN Administration SEVERE PAIN Hydromorphone HCl 1 mg 09/25/21 09:09 09/25/21 09:31 Hydromorphone 1 Mg/Ml Inj 1 Ml IVP 1 mg Q4H PRN Administration SEVERE PAIN Sodium Chloride 1,000 mls @ 100 mls/hr 09/24/21 20:09 09/25/21 05:27 Sodium Chloride 0.9% IV 100 mls/hr .Q10H ABBEY Administration Ciprofloxacin/Dextrose 400 mg in 200 mls @ 200 mls/hr 09/24/21 20:09 09/25/21 09:39 Cipro IV 200 mls/hr Q12H ABBEY Administration Protocol Clindamycin HCl/Dextrose 600 mg in 50 mls @ 100 mls/hr 09/24/21 20:09 09/08 09/29 04:18 Cleocin IV 100 mls/hr Q8H ABBEY Administration Protocol Vancomycin HCl 1,000 mg/ 250 mls @ 250 mls/hr 09/25/21 05:00 09/25/21 05:26 Sodium Chloride IV 250 mls/hr Q12H ABBEY Administration Insulin Detemir 22 unit 09/25/21 09:00 09/25/21 11:22 Insulin Detemir 100 Units/1 Ml SUBCUT 22 unit BID ABBEY Administration Insulin Human Lispro 0 unit 09/24/21 21:00 09/25/21 09:39 Insulin Lispro 100 Unit/1 Ml SUBCUT 4 unit WM&BEDTIME ABBEY Administration Protocol Ondansetron HCl 4 mg 09/24/21 20:09 09/25/21 09:31 Ondansetron 2 Mg/Ml Sdv 2 Ml IVP 4 mg Q8H PRN Administration vomiting, or N/V if npo Pantoprazole Sodium 20 mg 09/25/21 09:00 09/25/21 09:[address] 40 Mg Tablet PO 20 mg DAILY ABBEY Administration Tamsulosin HCl 0.4 mg 09/24/21 21:00 09/24/21 21:35 Tamsulosin 0.4 Mg Capsule PO 0.4 mg BEDTIME ABBEY Administration [facility] Anesthesia Medical History Diabetes Diabetic neuropathy Diaphragmatic hernia without mention of obstruction or gangrene Hyperparathyroidism Hypertension Peripheral Vascular Disease Stricture and stenosis of esophagus Stroke Surgical History History of hip surgery Family History Father Diabetes Mother Diabetes Brother Cancer colon Social History Smoking and tobacco status: current every day smoker Alcohol intake: never Substance/Drug Use: former Date of last use: months ago Other details last substance use: Smoked methamphetmaine in the past. Denies ever injection use. Marital status: Data Anesthesia : 09/25/21 04:19 09/25/21 04:19 Short CBC 09/24/21 09/25/21 Range/Units 15:37 04:19 WBC 15.8 H 12.5 H (4.0-10.0) 10^3/uL Hgb 12.7 10.8 L (11.7-16.6) g/dL Hct 38.6 L 32.9 L (42.0-52.0) % MCV 93.5 92.4 (80-94) fl Plt Count 291 221 (130-400) 10^3/cmm Neut % (Auto) 80.4 75.0 % Neut # (Auto) 12.69 H 9.37 H (1.8-7.7) 10^3/uL BMP 09/24/21 09/25/21 15:37 04:19 Sodium 136 135 L Potassium 4.1 3.7 Chloride 97 L 98 Carbon Dioxide 22 23 BUN 19 19 Creatinine 1.6 H 1.4 H Glucose 127 H 197 H Calcium 10.7 H 9.4 Liver Function 09/24/21 09/25/21 Range/Units 15:37 04:19 Total Bilirubin 0.7 0.4 (0.15-1.2) mg/dL AST 14 9 (0-40) U/L ALT 15 12 (0-41) U/L Alkaline Phosphatase 94 77 (40-130) U/L Albumin 3.9 3.4 L (3.5-5.2) g/dL Coags 09/24/21 15:37 C-Reactive Protein 226.2 H Microbiology 09/24/21 16:26 Blood Culture - Preliminary Blood SPECIMEN COLLECTED 09/24/21 16:20 Blood Culture - Preliminary Blood SPECIMEN COLLECTED Cardiac Studies: No Data to Display
--- NOTE | 2021-09-25 12:21 | PC.NURSE ---
11:50am pt off floor to surgery.
[2021-09-25] MEDS: sodium chloride 0.9% 1,000 ML 30 ML IV (12:24)
[2021-09-25 12:31] LABS: Glucose Point of Care 174 mg/dL (70-110)
--- NOTE | 2021-09-25 12:51 | PM.PN ---
Subjective Subjective: Having bad pain in his foot this morning. No shortness of breath. No chest pain or pressure. Vitals/I&O/Wt Last Vital Signs Temp 99.6 F 09/25/21 12:08 Pulse 71 09/25/21 12:08 Resp 18 09/25/21 12:08 BP 123/72 09/25/21 12:08 Pulse Ox 99 09/25/21 12:08 O2 Del Method 09/25/21 12:08 09/24/21 09/25/21 09/25/21 22:59 06:59 14:59 Intake Total 600 / 600 788.333 / 1388.333 Output Total 225 / 225 Balance 600 / 600 563.333 / 1163.333 Weight last 48 hrs Weight 111.13 kg Physical Exam Const: COMMON NORMALS: patient oriented x3 and alert GENERAL APPEARANCE: cooperative ORIENTATION/CONSCIOUSNESS: Yes awake HENMT: COMMON NORMALS: oropharynx normal Neck/C-Spine: COMMON NORMALS: no JVD Resp: COMMON NORMALS: normal respiratory effort and clear to auscultation bilaterally AUSCULTATION: clear to auscultation bilaterally Cardio: COMMON NORMALS: no JVD, regular rhythm, S1 normal heart sound present, S2 normal heart sound present and No murmurs present (Cardio) RHYTHM: regular rhythm HEART SOUNDS: S1 normal heart sound present and S2 normal heart sound present GI: COMMON NORMALS: Normal to inspection, nondistended, normoactive bowel sounds present, Soft to palpation and non-tender PALPATION: Yes Soft to palpation Extremity: COMMON NORMALS: no joint enlargement and no pedal edema OTHER: Erythema, mild swelling of distal right foot. Neuro: COMMON NORMALS: patient oriented x3 and moves all extremities SENSORIUM/ORIENTATION: Yes alert Skin: COMMON NORMALS: no rashes or lesions noted GENERAL SKIN EXAM: no rashes or lesions noted OTHER: Continued swelling, erythema of the R foot and now lower ankle. Worsening purplish discoloration of the third right toe, persistent tracking up the dorsal foot. Today additionally faint purplish discoloration of the fourth right toe. Puncture wound on plantar right foot, 0.5 cm, currently no active drainage. Data : 09/25/21 04:19 09/25/21 04:19 Micro: Microbiology 09/24/21 16:26 Blood Culture - Preliminary Blood SPECIMEN COLLECTED 09/24/21 16:20 Blood Culture - Preliminary Blood SPECIMEN COLLECTED A&P Assessment and plan (1) Puncture wound of foot, right, complicated: Persistent erythema, swelling of the distal right foot, nonhealing ulceration/puncture wound on the plantar aspect with surrounding swelling, purplish discoloration of middle third right toe, today faint purplish coloration of the fourth right toe. Purplish tracking up to dorsal foot. Leukocytosis 12.5, low-grade fever 100.1. Staff aureus growing in wound culture. Follow-up sensitivity. Going to OR today for I&D, cleanout, cultures, possible amputation. Vascular studies obtained. Discussed with interventional cardiology. PAD still present, possibly with some worsening, however, reviewed perfusion pressures may still allow healing. Priority is infection control, vascular chancellor will be following up with further consideration of peripheral angiogram depending on progress/wound healing. With diabetes with diabetic neuropathy microvascular circulation may certainly pose a challenge to healing. Additional consideration of possibility of blue toe syndrome on the right in addition to the infection given known peripheral arterial disease, continued smoking. Continue antiplatelets, statin. Will need continued optimization of cardiovascular risk factors. Follow-up regarding possibility of bone infection. Status: Acute (2) Cellulitis of right foot: Status: Acute (3) Soft tissue emphysema: Status: Acute (4) Diabetic peripheral neuropathy associated with type 2 diabetes mellitus: Status: Acute (5) GARETH (acute kidney injury): Creatinine with some improvement today to 1.4. Renal ultrasound unremarkable. Urine studies pending. Status: Acute Plan Diabetes with peripheral neuropathy Smoking addiction: He has been cutting down on smoking. History of CVA with residual aphasia HTN Hyperparathyroidism Attestations Medical Necessity Statement*: Continue admission for assessment of management of diabetic wound infection, cellulitis, deeper tissue infection, in the setting of diabetes, PAD. Coding Level of Care Code Acute Mechanical Unit Repairer for [facility] Fwd Diagnoses Puncture wound of foot, right, complicated S91.331A Cellulitis of right foot L03.115 Soft tissue emphysema T79.7XXA Diabetic peripheral neuropathy associated with type 2 diabetes mellitus E11.42 GARETH (acute kidney injury) N17.9
--- NOTE | 2021-09-25 12:59 | W.PM.OPSUD ---
Surgery/Procedure H&P Update DATE OF PROCEDURE: September 25, 2021 DATE H&P PERFORMED: 09/24/21 CHANGES TO PREVIOUS DOCUMENTATION: No changes PRIMARY INDICATION FOR PROCEDURE: Right foot gas gangrene PLANNED PROCEDURE: Operation Date: 09/25/21 12:50 Proposed Procedures p Incision And Drainage Right Foot(Right) - Ye Pruett DPM s poss Amputation 3 Toe(Right) - Ye Pruett DPM
[2021-09-25 13:11] LABS: Urine Creatinine 132 mg/dL (39-259)
--- NOTE | 2021-09-25 16:02 | PM.OP ---
Operative Report Date of procedure: September 25, 2021 Pre-op diagnosis: 1. Gas gangrene right foot third toe 2. Abscess right foot Post-op diagnosis: 1. Gas gangrene right foot third toe 2. Abscess right foot Post-op findings: Significant peripheral arterial disease. No tourniquet used through duration of case and estimated blood loss was less than 10 cc's. Gas gangrene with necrosis of right foot third toe, nonsalvageable. Abscess with deep space infection extending plantar to metatarsals 1 and 2 medially and metatarsals 4 and 5 laterally. Procedure done: 1. Right foot third digit amp with incision and drainage CPT 69695;[id number] Implants: None Specimens removed/disposition: Right foot third toe sent pathology. Deep tissue culture swabs sent to micro for ID and sensitivity Pathology: Right foot third toe sent to pathology Surgeon: Dr. Ye Pruett D.P.M. Estimated blood loss: Less than 10 cc No tourniquet used Complications: None Findings: Severe peripheral arterial disease to right lower extremity in the presence of significant deep space infection. Gas gangrene of right foot third toe necessitating amputation. Deep space infection tracks plantar to first and second metatarsals as well as plantar to the third and fourth metatarsals and the medial and lateral directions respectively. Given the extent of infection, unsure how realistic limb salvage is without vascular intervention. Brief History: Patient admitted with right foot gas gangrene in the presence of severe PAD. Procedure: Patient is a 55-year-old male that is currently admitted to the hospital with worsening right foot infection including gas gangrene to the right foot third digit in the presence of severe PAD. The extent of the infection is requiring surgical intervention at this time. A lengthy discussion regarding the procedure, including risks and complications has been had with the patient and is noted in the recent clinic note. Written and verbal consent have been obtained. All patient questions have been answered to the patient?s satisfaction. No written or verbal guarantees have been given or implied. The patient has been NPO since midnight. The history has been reviewed and the history and physical is current. The signed consent was confirmed and placed in the patient chart. Patient imaging has been reviewed and is consistent with thediagnosis. Under mild sedation, the patient was brought into the operating room and placed on the table in the supine position. IV antibiotics were given by the anesthesia team as preoperative surgical prophylaxis. IV sedation was then performed by the anesthesia team. The operative extremity was then prepped and draped in the usual fashion. After prep, the following procedure was then performed. Attention was directed to the right foot. The third digit was evaluated and noted to be nonviable and ischemic with crepitus to palpation at the level of the proximal interphalangeal joint and distal interphalangeal joints. Given this presentation it was decided that the third toe was nonsalvageable. A #15 blade was then used to make a tennis racquet incision around the third digit. Dissection was carried down to the level of the third metatarsal phalangeal joint and the toe was removed from the foot in its entirety and passed from the operative field and sent to pathology as specimen. Upon incising the skin there is noted to be an extravasation of dirty dishwater like purulence. The foot was milked and there was noted to be coming from the medial and lateral aspects of the third metatarsal. A [place] elevator was used to assess the tracking. It was noted that the deep space infection tracked on the plantar aspect of the second and first metatarsals medially into the medial plantar arch. It also tracked laterally under the fourth and fifth metatarsals. The wound also probed dorsally along the proximal aspect of the third metatarsal to the base of the third metatarsal. The tissues were dark and discolored, ischemic and nonviable. A rongeur was used to remove nonviable tissue. Next the site was irrigated with 3000 cc of sterile saline on low-pressure pulse lavage. The foot was milked during irrigation to remove purulence from the deeper spaces. After irrigation, the amputation site was packed with quarter inch iodoform packing gauze using a [place] into the deeper spaces of the foot. The amputation site was then covered with Adaptic Betadine soaked 4 x 4 gauze dry 4 x 4 gauze Kerlix and wrapped with Jass bandage, light compression. Throughout the entirety of the case, it was noted that there was minimal to no bleeding at the amputation site. This was without the use of a tourniquet. The patient tolerated the procedure anesthesia well without complications. The patient will be transported to the recovery room from the operating room with vital signs stable and vascular status diminished but intact to remaining digits. Given the extent of the infection and the severity of the lower extremity peripheral arterial disease, I am recommending vascular intervention if there is any hope for limb salvage. We will continue IV antibiotics and monitor cultures. We will assess amputation site wound daily while inpatient and provide recommendations. I will discuss with other members of the team managing his care.
--- NOTE | 2021-09-25 16:56 | PM.CONSULT ---
Providers/Reason For Consult Consulting Physician/Specialty*: Que Gomes MD/Interventional Cardiology Reason for Consult*: Peripheral artery disease/ Requesting Physician: Dr Lacy Attending Physician: Grayson Lacy Primary Care Provider: Dillon Stein History of Present Illness History of Present Illness Aldo Alcaraz is a 55 year old male with past medical history of CVA, PAD, hypertension, hyperlipidemia who was sent to hospital from podiatry clinic after he was found to have a nonhealing wound of the right foot plantar surface with a purplish discoloration of third right toe. He initially had a puncture wound. And was put on antibiotics. However it had been worsening. He has known PAD. Podiatry has plan for amputation of third toe. However there is concern about wound healing given his significant PAD. Pulses are not palpable. ABIs were done and on the right side significantly lower at 0.62 and TBI is very low. Review of Systems Const: Denies: fever(s), chills, body aches or malaise Eyes: Denies: change in vision, eye discomfort or eye redness ENMT: Denies: throat pain, oral sores or ear or mastoid pain Card: Denies: chest pain, edema, pre-syncope or dyspnea on exertion Resp: Denies: dyspnea, productive cough, change in phlegm color or hemoptysis GI: Denies: abdominal pain, nausea, vomiting, diarrhea, constipation, hematochezia or melena : Denies: flank pain, difficulty urinating, urinary frequency or hematuria Musc: Reports: extremity pain and extremity swelling; Denies: back pain, joint swelling or joint redness Skin/Breast: Reports: erythema and non-healing lesions Neuro: Denies: headache(s), numbness in extremities, weakness in extremities, dizziness, confusion or seizure-like activity Endo: Denies: polyuria or polydipsia Pb/Lymph: Denies: easy bleeding or tender lymph nodes All/Imm: Denies: urticaria or tongue swelling Medications/Allergies Home Medications Medication Instructions Recorded Confirmed Last Taken Type amlodipine 10 mg tablet 10 mg PO BEDTIME 12/07/19 09/24/21 09/23/21 History atorvastatin 40 mg tablet 40 mg PO BEDTIME 12/07/19 09/24/21 09/23/21 History baclofen 10 mg tablet 10 mg PO BID PRN Pain 12/07/19 09/24/21 09/24/21 History cholecalciferol (vitamin D3) 50 50 mcg PO DAILY 12/07/19 09/24/21 09/24/21 History mcg (2,000 unit) capsule clopidogrel 75 mg tablet 75 mg PO DAILY 12/07/19 09/24/21 09/24/21 History fluoxetine 20 mg tablet 20 mg PO DAILY 12/07/19 09/24/21 09/24/21 History lisinopril 40 mg tablet 40 mg PO DAILY 12/07/19 09/24/21 09/24/21 History pantoprazole 20 mg tablet,delayed 20 mg PO DAILY 12/07/19 09/24/21 09/24/21 History release tamsulosin 0.4 mg capsule 0.4 mg PO BEDTIME 12/07/19 09/24/21 09/23/21 History metformin 1,000 mg tablet 1,000 mg PO BID #180 tabs 12/08/19 09/24/21 09/24/21 Rx atenolol 100 mg tablet 100 mg PO BEDTIME 08/20/20 09/24/21 09/23/21 History aspirin 81 mg tablet,delayed 325 mg PO DAILY 10/01/20 09/24/21 09/24/21 History release blood-glucose meter,continuous #1 ea 07/17/21 09/24/21 Unknown Rx (Dexcom G6 Monorail Charger Operator) blood-glucose sensor (Dexcom G6 #3 ea 07/17/21 09/24/21 Unknown Rx Sensor) blood-glucose transmitter (Dexcom #1 ea 07/17/21 09/24/21 Unknown Rx G6 Transmitter) flash glucose scanning reader #1 ea 07/30/21 09/24/21 Unknown Rx (FreeStyle April 2 [place]) flash glucose sensor (FreeStyle #6 ea 07/30/21 09/24/21 Unknown Rx April 2 Sensor) hydroxyzine HCl 25 mg tablet 25 mg PO BID PRN Anxiety 08/17/21 09/24/21 Unknown History ciprofloxacin HCl 500 mg tablet 500 mg PO BID 09/24/21 09/24/21 09/24/21 History gabapentin 400 mg capsule 400 mg PO BID 09/24/21 09/24/21 09/24/21 History hydralazine 10 mg tablet 10 mg PO Q6H PRN Blood Pressure 09/24/21 09/24/21 09/24/21 History hydrochlorothiazide 25 mg tablet 25 mg PO DAILY 09/24/21 09/24/21 09/24/21 History insulin detemir U-100 100 unit/mL 44 unit SUBCUT BID 09/24/21 09/24/21 09/24/21 History (3 mL) subcutaneous pen (Levemir FlexTouch U-100 Insulin) insulin lispro 100 unit/mL See Rx Instructions .Route .COMPLEX 09/24/21 09/24/21 09/24/21 History subcutaneous pen (Humalog KwikPen (U-100) Insulin) Allergies Allergy/AdvReac Type Severity Reaction Status Date / Time No Known Allergies Allergy Verified 09/24/21 14:27 Current Medications Generic Name Dose Route Start Last Admin Trade Name Freq PRN Reason Stop Dose Admin Acetaminophen 650 mg 09/24/21 20:09 09/24/21 22:18 Acetaminophen 325 Mg Tablet PO 650 mg Q6H PRN Administration Mild/Mod Pain Or Temp >/= 101 Aspirin 325 mg 09/25/21 09:00 09/25/21 09:38 Aspirin 81 Mg Ec Tablet PO 325 mg DAILY ABBEY Administration Atenolol 100 mg 09/24/21 21:00 09/24/21 21:35 Atenolol 50 Mg Tablet PO 100 mg BEDTIME ABBEY Administration Atorvastatin Calcium 40 mg 09/24/21 21:00 09/24/21 21:35 Atorvastatin 40 Mg Tablet PO 40 mg BEDTIME ABBEY Administration Clopidogrel Bisulfate 75 mg 09/25/21 09:00 09/25/21 09:39 Clopidogrel 75 Mg Tablet PO 75 mg DAILY ABBEY Administration Fluoxetine HCl 20 mg 09/25/21 09:00 09/25/21 09:39 Fluoxetine 20 Mg Capsule PO 20 mg DAILY ABBEY Administration Gabapentin 400 mg 09/25/21 09:00 09/25/21 09:39 Gabapentin 400 Mg Capsule PO 400 mg BID ABBEY Administration Hydrochlorothiazide 25 mg 09/25/21 09:00 09/25/21 09:39 Hydrochlorothiazide 25 Mg Tablet PO 25 mg DAILY ABBEY Administration Hydromorphone HCl 2 mg 09/24/21 20:09 09/25/21 06:58 Hydromorphone 4 Mg Tablet PO 2 mg Q6H PRN Administration SEVERE PAIN Hydromorphone HCl 1 mg 09/25/21 09:09 09/25/21 09:31 Hydromorphone 1 Mg/Ml Inj 1 Ml IVP 1 mg Q4H PRN Administration SEVERE PAIN Sodium Chloride 1,000 mls @ 100 mls/hr 09/24/21 20:09 09/25/21 05:27 Sodium Chloride 0.9% IV 100 mls/hr .Q10H ABBEY Administration Ciprofloxacin/Dextrose 400 mg in 200 mls @ 200 mls/hr 09/24/21 20:09 09/25/21 09:39 Cipro IV 200 mls/hr Q12H ABBEY Administration Protocol Clindamycin HCl/Dextrose 600 mg in 50 mls @ 100 mls/hr 09/24/21 20:09 09/25/21 04:18 Cleocin IV 100 mls/hr Q8H ABBEY Administration Protocol Vancomycin HCl 1,000 mg/ 250 mls @ 250 mls/hr 09/25/21 05:00 09/25/21 05:26 Sodium Chloride IV 250 mls/hr Q12H ABBEY Administration Insulin Detemir 22 unit 09/25/21 09:00 09/25/21 11:22 Insulin Detemir 100 Units/1 Ml SUBCUT 22 unit BID ABBEY Administration Insulin Human Lispro 0 unit 09/24/21 21:00 09/25/21 16:01 Insulin Lispro 100 Unit/1 Ml SUBCUT Not Given WM&BEDTIME ABBEY Protocol Ondansetron HCl 4 mg 09/24/21 20:09 09/25/21 09:31 Ondansetron 2 Mg/Ml Sdv 2 Ml IVP 4 mg Q8H PRN Administration vomiting, or N/V if npo Pantoprazole Sodium 20 mg 09/25/21 09:00 09/25/21 09:[address] 40 Mg Tablet PO 20 mg DAILY ABBEY Administration Tamsulosin HCl 0.4 mg 09/24/21 21:00 09/24/21 21:35 Tamsulosin 0.4 Mg Capsule PO 0.4 mg BEDTIME ABBEY Administration PFSH Acute PFSH: Medical History Diabetes Diabetic neuropathy Diaphragmatic hernia without mention of obstruction or gangrene Hyperparathyroidism Hypertension Peripheral Vascular Disease Stricture and stenosis of esophagus Stroke Surgical History History of hip surgery Family History Father Diabetes Mother Diabetes Brother Cancer colon Social History Smoking and tobacco status: current every day smoker Alcohol intake: never Substance/Drug Use: former Date of last use: months ago Other details last substance use: Smoked methamphetmaine in the past. Denies ever injection use. Marital status: Vitals/I&O/Wt Last Vital Signs Temp 98.0 F 09/25/21 16:00 Pulse 74 09/25/21 16:30 Resp 16 09/25/21 16:30 BP 158/78 09/25/21 16:30 Pulse Ox 96 09/25/21 16:30 O2 Del Method 09/25/21 16:30 09/25/21 09/25/21 09/25/21 06:59 14:59 22:59 Intake Total 788.333 / 6484.635 2126 / 1700 Output Total 225 / 225 Balance 563.333 / 1490.019 8167 / 1690 Weight last 48 hrs Weight 245 lb Physical Exam Narrative: GENERAL: Patient is alert, awake and oriented x3. [] NECK: No jugular vein distension. [] HEENT: No cyanosis. No icterus. No pallor. [] HEART: Regular S1 and S2. No murmur, rub or gallop. [] LUNGS: Clear to auscultate bilaterally. [] ABDOMEN: Soft, nontender and nondistended. Positive bowel sounds. No guarding, rebound or tenderness. [] CENTRAL NERVOUS SYSTEM: Grossly nonfocal. [] EXTREMITIES: Lower extremities with 1+ edema bilaterally. Right fourth toe has a purplish discoloration. Pulses are not palpable in right foot both DP and PT. Data : 09/26/21 04:28 09/26/21 04:28 Micro: Microbiology 09/24/21 16:26 Blood Culture - Preliminary Blood NEGATIVE TO DATE 09/24/21 16:20 Blood Culture - Preliminary Blood NEGATIVE TO DATE A&P Assessment and plan (1) Puncture wound of foot, right, complicated: Status: Acute (2) Diabetic peripheral neuropathy associated with type 2 diabetes mellitus: Status: Acute (3) Hypertension: Status: Acute (4) Uncontrolled type 2 diabetes mellitus: Status: Acute (5) GARETH (acute kidney injury): Status: Acute (6) Peripheral artery disease: Status: Acute Plan Patient has significant PAD. Given concern for poor healing and significant PAD, we will proceed with peripheral angiogram with possible percutaneous intervention. TAWNY and TBI are significantly abnormal on the right lower extremity. Only posterior tibial artery has poor Doppler signals. No DP signals. We will plan for tomorrow. Patient will have amputation of the third toe today. We will limit contrast use by not performing CTA prior to the angiogram. N.p.o. past midnight. Thank you for involving us with care of this patient. We will continue to follow. Please call with questions. Consult Attestations Medical Necessity Statement: Care expected to cross 2 midnights. Coding Level of Care Code Acute Merchandising Execution Associate for [facility] Diagnoses Puncture wound of foot, right, complicated S91.331A Diabetic peripheral neuropathy associated with type 2 diabetes mellitus E11.42 Hypertension I10 Uncontrolled type 2 diabetes mellitus E11.65 GARETH (acute kidney injury) N17.9 Peripheral artery disease I73.9
[2021-09-25 18:02] LABS: Glucose Point of Care 126 mg/dL (70-110)
--- NOTE | 2021-09-25 20:09 | USCV_ITS ---
Aldo Alcaraz Age: 55 Gender: M : 1965 Exam Date: 09/25/2021 07:45 Ordering Phys: Grayson Lacy MD Technologist: Exam Location: [facility] [place]_ Indication: infection rt foot RIGHT LEFT Brachial 113.00 mmHg Brachial 117.00 mmHg Pressure (mmHg) Waveform Pressure (mmHg) Waveform 72.00 EMBROIDERY SPECIALIST 95.00 48.00 DPA 94.00 0.62 Ankle/Brachial Index 0.81 36.00 Pre-Exercise Toe Pressure 39.00 0.31 Pre-Exercise Toe/Brachial Index 0.33 FINDINGS Resting TAWNY of 0.62 on the right side and 0.8 on the left side. Resting TBI of 0.31 on the right and 3 3 on the left side CONCLUSIONS 1. Features of moderate peripheral artery disease on the right side 2. Features of mild to moderate peripheral artery disease on the left side Compared to the study from 02/12/2021, there is worsening of stenosis on the right side Dr Brenda Wright MD [facility] (Electronically Signed) Final Date: 25 September 2021 21:59 S
[2021-09-25] MEDS: tamsulosin 0.4 mg Capsule PO (20:28)
[2021-09-25] MEDS: atorvastatin 40 mg Tablet PO (20:28)
[2021-09-25] MEDS: atenolol 50 mg Tablet 100 MG PO (20:28)
[2021-09-25 23:11] LABS: Glucose Point of Care 293 mg/dL (70-110)
[2021-09-25 23:11] LABS: Glucose Point of Care 185 mg/dL (70-110)
[2021-09-26] VITALS (20 sets, daily range): BP systolic 122–157; BP diastolic 68–81; PULSE 65–73; RESP 13–28; TEMP 36.8–37.2; O2SAT 89–100
[2021-09-26] MEDS: sodium chloride 0.9% 1,000 ML 100 ML IV ×3 (00:26→22:29)
[2021-09-26] MEDS: clindamycin 600 MG/50 ML PREMIX 100 MG IV ×3 (04:42→19:43)
[2021-09-26 04:49] LABS: Basophils # 0.1 10^3/uL (0.0-0.1); Basophils % 0.4 %; Eosinophils % 0.1 %; Hematocrit 32.7 % (42.0-52.0); Hemoglobin 10.7 g/dL (11.7-16.6); Lymphocytes # 0.7 10^3/uL (0.8-4.8); Lymphocytes % 5.4 %; Mean Corpuscular HGB Conc 32.7 g/dL (30.0-36.0); Mean Corpuscular Hemoglobin 30.4 pg (28.0-34.0); Mean Corpuscular Volume 92.9 fl (80-94); Mean Platelet Volume 10.8 fL (7.4-10.4); Monocytes # 1.2 10^3/uL (0.2-0.9); Monocytes % 9.1 %; Neutrophils # 11.35 10^3/uL (1.8-7.7); Neutrophils % 84.5 %; Nucleated Red Blood Cells % 0 %; Platelet Count 242 10^3/cmm (130-400); Red Blood Count 3.52 10^6/uL (4.1-5.3); White Blood Count 13.5 10^3/uL (4.0-10.0)
[2021-09-26 05:02] LABS: Anion Gap 15.6 (5-19); Blood Urea Nitrogen 11 mg/dL (6-20); Calcium 9.7 mg/dL (8.5-10.5); Carbon Dioxide 24 mmol/L (22-29); Chloride 100 mmol/L (98-107); Glomerular Filtration Rate 77.3 mL/min (90-130); Glucose 83 mg/dL (65-115); Osmolality Calculated 281 mOsm/kg (285-295); Potassium 3.6 mmol/L (3.5-5.1); Sodium 136 mmol/L (136-145)
[2021-09-26] MEDS: vancomycin 1,000 MG in sodium chloride 0.9% 250 ML 250 MG IV ×2 (06:46→17:15)
[2021-09-26 06:48] LABS: Glucose Point of Care 348 mg/dL (70-110)
[2021-09-26 08:22] LABS: Glucose Point of Care 120 mg/dL (70-110)
[2021-09-26] MEDS: clopidogrel 75 mg Tablet PO (09:10)
[2021-09-26] MEDS: pantoprazole DR 40 mg Tablet 20 MG PO (09:10)
[2021-09-26] MEDS: fluoxetine 20 mg Capsule PO (09:10)
[2021-09-26] MEDS: HYDROmorphone 1 mg/mL INJ 1 mL IVP ×4 (09:11→23:21)
[2021-09-26] MEDS: ciprofloxacin 400 MG/200 ML PREMIX 200 MG IV ×2 (09:12→19:09)
[2021-09-26] MEDS: gabapentin 400 mg Capsule PO ×2 (09:12→17:29)
--- NOTE | 2021-09-26 09:24 | PM.PN ---
Subjective Subjective: Patient seen the bedside this morning. Status post right foot incision and drainage with third toe amputation, DOS: 09/25/2021. Patient's is also in the room with him this morning. Patient states that pain is present and was moderately controlled overnight with Dilaudid 2 mg every 6 hours. Overall, patient states the pain is improved from his initial presentation to the emergency department. New ABIs were performed which show right TAWNY 0.62 and right TBI 0.31. Cardiology consulted and plan for possible CTA today at 1300 pending patient renal function. Patient denies any other complaints at this time Vitals/I&O/Wt Last Vital Signs Temp 99.0 F 09/26/21 08:00 Pulse 70 09/26/21 08:00 Resp 18 09/26/21 09:11 BP 146/78 09/26/21 08:00 Pulse Ox 92 09/26/21 09:11 O2 Del Method 09/26/21 08:00 09/25/21 09/26/21 09/26/21 22:59 06:59 14:59 Intake Total 2029 895 / 4625 Balance 2029 895 / 4615 Weight last 48 hrs Weight 222 lb 4 oz Weight 245 lb Physical Exam Narrative: GENERAL: A&O x 3 VASCULAR: DP/PT pulses nonpalpable DERMATOLOGICAL: Significant ecchymoses to dorsal aspect of right foot, extending proximally from the third digit amputation site. Amputation skin edges appear purpleish discolored with dusky changes. No active purulence or drainage expressed from the wound this morning. No malodor. No further signs of underlying abscess. No fluctuance. No crepitus. MUSCULOSKELETAL: Right foot third digit amputation. Tenderness with palpation to right foot. NEUROLOGICAL: Neurological sensation to the affected foot and ankle is present through L4-S1 dermatomes Data : 09/26/21 04:28 09/26/21 04:28 Micro: Microbiology 09/25/21 13:37 Gram Stain - Final Toe - #2 09/24/21 16:26 Blood Culture - Preliminary Blood NEGATIVE TO DATE 09/24/21 16:20 Blood Culture - Preliminary Blood NEGATIVE TO DATE Attestations Medical Necessity Statement*: PLAN: -Status post right foot I&D with third toe amp DOS: 09/25/2021 -Surgical dressing removed and wound evaluated. Dusky changes about amputation skin edges. No further purulence. 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
--- NOTE | 2021-09-26 09:35 | XR_ITS ---
WS: [id number] Right foot, 3 views, 09/26/2021 Clinical Data: Status post right foot surgery, right foot infection Comparison: Right foot, 09/24/2021. Findings: There is been amputation of the right third toe. There is postoperative air in the operative site. XR/XR foot RT min 3V* [id number] Impression: Amputation of the right third toe.
--- NOTE | 2021-09-26 09:47 | XACV_ITS ---
Ht: 191 cm Wt: 101 kg BSA: 2.32 m2 Any Known Allergies: No known allergies Gender: Male : 1965 Exam Type: Invasive Peripheral Vascular Procedure(s): Procedure Description: Diagnostic procedure Procedure Description: Peripheral Cath Diagnostic Procedure Procedure Description: Abdominal aortic angiography Procedure Description: Lower extremities' angiography Procedure Description: Miscellaneous Procedure Description: Angio-Seal Exam Priority: Routine Abdominal Diagnostic Findings Distal abdominal aorta: Patent. Lower Extremity Diagnostic Findings INDICATION: Peripheral artery disease/ Non healing foot wound/ Critical limb ischemia of right lower extermity. . Right lower extremity Right common iliac artery: Patent Right internal iliac artery: Patent Right external iliac artery: Patent Right common femoral artery: Patent Right profunda: Patent Right SFA: Patent Right popliteal artery: Patent Severe PAD below the knee. Anterior tibial artery is totally occluded in the proximal segment. TP segment is totally occluded with collateral blood supply to the posterior tibial artery. Peroneal artery is totally occluded. Minimal blood flow to the foot.. Left lower extremity: Left common iliac artery: Patent Left internal iliac artery: Patent Left external iliac artery: Patent Left common femoral artery: Patent Left profunda: Patent Left SFA: Patent Left popliteal artery: Patent Left anterior tibial artery: Occluded in proximal segment Left TP segment: Totally occluded. Collateral blood supply reconstitute posterior tibial artery and peroneal arteries. Peroneal artery is diffusely diseased and is occluded. Single-vessel runoff to popliteal artery via collaterals.. Conclusions Severe bilateral below the knee bilateral PAD. Right lower extremity not amenable to percutaneous intervention given totally occluded vessels and only blood supply through collaterals below the knee. Medical management for now. Patient at high risk of amputation. From vascular standpoint below the knee amputation should have good healing as blood supply is good till distal popliteal artery. Recommendations Aggressive risk factor modification. Hemodynamic Data Phase:Rest AO : 137.0 / 66.0 ( 91.0 ) @ 4:27:00 PM 138.0 / 62.0 ( 85.0 ) @ 4:32:00 PM 128.0 / 58.0 ( 81.0 ) @ 4:40:00 PM Access Site Site: Left Femoral artery Sheath Size: 6 Fr Hemost... Method: Angio-Seal VIP ([facility]) Hemost... Success: Successful Procedure Details Findings Procedure Consent Obtained. Pre-Procedure Time Out. Identified patient by full name and date of as verbalized by the patient/guarantor. Does the consent match the physician's order: Yes. Accurate & Complete Informed Consent: Yes. Inpatient/Outpatient History & Physical on Chart: Yes. If H&P is completed, is and addenduem needed: No; If yes, is the addendum complete: N/A. Visualize and Verify Site with Patient/Guarantor: N/A. Relevant Radiology Images available: Yes. Pre-op teaching completed and patient verbalized understanding. The risks, benefits, and alternatives of sedation and/or procedure were discussed by physician. The patient agrees to continue. Procedure started. PERRLA. Strong, equal hand pre billing specialist bilaterally. Lungs clear x 5 lobes. IV Site on Arrival: 18 gauge in the left wrist. IV Fluids: 0.9% NaCl at KVO. 0 mL infused prior to geophysical laboratory supervisor. Oxygen started at 2liters/min via nasal canula. bilateral groins was prepped with chloroprep then draped in the usual sterile fashion. Physician notified. Baseline sample Acquired. HR: 69 BPM. Physician arrived. Physician scrubbed in. Immediate Pre-Procedure Time Out. Correct Patient: Yes; Correct Procedure: Yes; Correct Site: Yes; Correct Patient Position: Yes; Correct Supplies: Yes; Dried Flammable Prep: Yes; Blood Products Available: N/A;. Lidocaine 1% infiltrated to the left groin. Arterial access obtained with micropuncture set. needle and wire out. Arterial access obtained with micropuncture set. A 5FrFr UF catheter in over wire. Abdominal aortogram performed in AP @ 10 mL/sec for a total of 30 mL. glidewire inserted through the catheter. Right common iliac selected and arteriogram with runoff performed @ 10 mL/sec for a total of 20 mL. Catheter removed over the glide wire. The sheath was exchanged for a new 6FR sheath. Sheath injected in Left common femoral artery and runoff performed. A Angio-Seal VIP ([facility]) was successful obtaining hemostatsis at the Left Femoral artery insertion site. PERRLA. Strong, equal hand pre billing specialist bilaterally. No VTE prophylaxis required. Medication's Wasted: Heparin = 1000 units. Total IV fluids: 55 mL. Complications: None. Post-op diagnosis: Severe below the knee PAD. Estimated blood loss: 5mL-10mL. Responsiveness - Normal response to verbal stimuli; alert and oriented, PERRLA. Airway - Unaffected, no intervention required; spontaneous ventilation. Circulation: W/N/L, pulses unchanged. Nausea/Vomiting: No. Procedure completed. Vital chart was stopped. Patient transferred by bed to ICU. Procedure Medications Start: 3:17 PM Stop: 3:17 PM Medication: Versed Amount: 1 mg Route: I.V. Start: 3:17 PM Stop: 3:17 PM Medication: Fentanyl Amount: 50 mcg Route: I.V. Start: 3:18 PM Stop: 3:18 PM Medication: Versed Amount: 1 mg Route: I.V. Start: 3:26 PM Stop: 3:26 PM Medication: Versed Amount: 1 mg Route: I.V. Start: 3:26 PM Stop: 3:26 PM Medication: Fentanyl Amount: 50 mcg Route: I.V. Start: 3:30 PM Stop: 3:30 PM Medication: Versed Amount: 1 mg Route: I.V. I, the attending physician, have reviewed and verified all procedure medications. Yes, all medications given per verbal order History/Risk Factors Hypertension: Yes Dyslipidemia: Yes Peripheral Arterial Disease (PAD): Yes Obesity: No Renal Disease: No Prior Interventions PCI: No CABG: No Valve Surgery: No Report Signatures Finalized by Que Gomes MD on 10/08/2021 11:09 AM
[2021-09-26] MEDS: aspirin 325 mg EC Tablet PO (10:44)
[2021-09-26 11:41] LABS: Glucose Point of Care 139 mg/dL (70-110)
--- NOTE | 2021-09-26 15:00 | PC.NURSE ---
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
--- NOTE | 2021-09-26 15:15 | W.PM.OPSUD ---
Surgery/Procedure H&P Update DATE OF PROCEDURE: September 26, 2021 DATE H&P PERFORMED: 09/25/21 H&P UPDATE INFORMATION: I have reviewed H&P completed within last 30 days, I have examined patient prior to procedure and No changes to prior documentation PREOP DIAGNOSIS: Peripheral artery disease/ Non healing foot wound/ Critical limb ischemia PRIMARY INDICATION FOR PROCEDURE: Peripheral artery disease/ Non healing foot wound/ Critical limb ischemia PLANNED PROCEDURE: Peripheral angiogram with possible percutaneous intervention PATIENT REASSESSED PRIOR TO SEDATION, WITH NO CHANGE NOTED: Yes PHYSICAL EXAM: alert, oriented x 3, clear to auscultation bilaterally and regular rate & rhythm AIRWAY EVAL/ANESTHESIA PLAN: normal airway, ASA III, Local Anesthesia, Risks, benefits & alternatives of sedation and/or procedure discussed and Patient agrees to continue as planned ADDITIONAL INFORMATION: Moderate sedation
--- NOTE | 2021-09-26 16:05 | PC.NURSE ---
Arrived from [place] [facility] cath site clean dry and intact
[2021-09-26 17:01] LABS: Glucose Point of Care 74 mg/dL (70-110)
--- NOTE | 2021-09-26 17:41 | PM.PN ---
Subjective Subjective: Patient is stable. Underwent amputation of third right toe yesterday. Not complaining of pain. He underwent peripheral angiogram today that showed patent vessels till distal popliteal artery below the knee. TP segment and anterior tibial arteries are totally occluded. Only blood flows through is through collaterals that supply the foot via reconstitution of PT. Vitals/I&O/Wt Last Vital Signs Temp 98.5 F 09/26/21 12:00 Pulse 69 09/26/21 17:30 Resp 26 H 09/26/21 17:30 BP 131/72 09/26/21 17:30 Pulse Ox 90 09/26/21 17:30 O2 Del Method 09/26/21 12:00 09/26/21 09/26/21 09/26/21 06:59 14:59 22:59 Intake Total 895 / 4625 1500 / 1500 Balance 895 / 4615 1500 / 1500 Weight last 48 hrs Weight 222 lb 4 oz Physical Exam Narrative: GENERAL: Patient is alert, awake and oriented x3. [] NECK: No jugular vein distension. [] HEENT: No cyanosis. No icterus. No pallor. [] HEART: Regular S1 and S2. No murmur, rub or gallop. [] LUNGS: Clear to auscultate bilaterally. [] ABDOMEN: Soft, nontender and nondistended. Positive bowel sounds. No guarding, rebound or tenderness. [] CENTRAL NERVOUS SYSTEM: Grossly nonfocal. [] EXTREMITIES: Lower extremities with 1+ edema bilaterally. Right third toe amputation, has dressing applied per podiatry. Pulses are not palpable in right foot both DP and PT. Data : 09/27/21 03:41 09/27/21 03:41 Micro: Microbiology 09/25/21 13:37 Anaerobic Culture - Preliminary Toe - #1 09/25/21 13:37 Gram Stain - Final Toe - #2 Wound Culture - Preliminary Staphylococcus species 09/24/21 16:26 Blood Culture - Preliminary Blood NEGATIVE TO DATE 09/24/21 16:20 Blood Culture - Preliminary Blood NEGATIVE TO DATE A&P Assessment and plan (1) Puncture wound of foot, right, complicated: Status: Acute (2) Diabetic peripheral neuropathy associated with type 2 diabetes mellitus: Status: Acute (3) Hypertension: Status: Acute (4) Uncontrolled type 2 diabetes mellitus: Status: Acute (5) GARETH (acute kidney injury): Status: Acute (6) Peripheral artery disease: Status: Acute Plan Patient has significant PAD. Given concern for poor healing and significant PAD, decreased TAWNY and severely reduced TBI, peripheral angiogram was performed today. Patient has good blood supply till distal popliteal artery below the knee. His right TP segment and anterior tibial artery both are totally occluded. Gets reconstitution of posterior tibial artery via collaterals. Given his vasculature, chances of revascularization are minimal with very high risk of turning into acute limb while attempting cross through totally occluded sections and vascular damage to residual distal blood supply. Will recommend medical therapy for now. Patient will be high risk for amputation which, based on vasculature can be done below the knee if needed in future. Has severe PAD of the left lower extremity as well. Recommended patient to quit smoking and have strict diabetes control. Thank you for involving us with care of this patient. We will continue to follow. Please call with questions. Attestations Medical Necessity Statement*: Care expected to cross 2 midnights. 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
--- NOTE | 2021-09-26 19:59 | P.PN_ITS ---
Subjective Subjective: Today he is feeling better. Pain and is under better control, although still needing pain medication. When seen this morning, awaiting angiogram this afternoon. Vitals/I&O/Wt Last Vital Signs Temp 98.5 F 09/26/21 12:00 Pulse 69 09/26/21 17:30 Resp 26 H 09/26/21 17:30 BP 131/72 09/26/21 17:30 Pulse Ox 90 09/26/21 17:30 O2 Del Method 09/26/21 12:00 09/26/21 09/26/21 09/26/21 06:59 14:59 22:59 Intake Total 895 / 4625 1500 / 1500 250 / 1750 Balance 895 / 4615 1500 / 1500 250 / 1750 Weight last 48 hrs Weight 100.811 kg Physical Exam Narrative: His accompanies him at bedside. Const: COMMON NORMALS: patient oriented x3 and alert GENERAL APPEARANCE: cooperative ORIENTATION/CONSCIOUSNESS: Yes awake HENMT: COMMON NORMALS: oropharynx normal Neck/C-Spine: COMMON NORMALS: no JVD Resp: COMMON NORMALS: normal respiratory effort and clear to auscultation bilaterally AUSCULTATION: clear to auscultation bilaterally Cardio: COMMON NORMALS: no JVD, regular rhythm, S1 normal heart sound present, S2 normal heart sound present and No murmurs present (Cardio) RHYTHM: regular rhythm HEART SOUNDS: S1 normal heart sound present and S2 normal heart sound present GI: COMMON NORMALS: Normal to inspection, nondistended, normoactive bowel sounds present, Soft to palpation and non-tender PALPATION: Yes Soft to palpation Extremity: COMMON NORMALS: no joint enlargement and no pedal edema Neuro: COMMON NORMALS: patient oriented x3 and moves all extremities SENSO RIUM/ORIENTATION: Yes alert Skin: COMMON NORMALS: no rashes or lesions noted GENERAL SKIN EXAM: no rashes or lesions noted OTHER: Postoperative dressing right foot. Normal progression of swelling proximally. Data : 09/26/21 04:28 09/26/21 04:28 Micro: Microbiology 09/25/21 13:37 Anaerobic Culture - Preliminary Toe - #1 09/25/21 13:37 Gram Stain - Final Toe - #2 Wound Culture - Preliminary Staphylococcus species 09/24/21 16:26 Blood Culture - Preliminary Blood NEGATIVE TO DATE 09/24/21 16:20 Blood Culture - Preliminary Blood NEGATIVE TO DATE A&P Assessment and plan (1) Puncture wound of foot, right, complicated: Underwent debridement in OR 09/25, with noted deep infection, and required amputation of the third digit. Poor bleeding and perfusion noted intraoperatively, so additionally underwent peripheral angiography today. Unfortunately is chronically occluded vessels below the knee with collaterals only. Some minor perfusion of DP from collaterals. Unfortunately no target for endovascular or open revascularization. Appreciate cardiology feedback. Discussed with podiatry. Continue wound care, antibiotics. Healing would expect will be challenging. In case healing not possible, BKA may be necessary. Staff aureus growing in cultures. MDR. Stop clindamycin. With diabetes with diabetic neuropathy microvascular circulation certainly pose a challenge to healing. Continue antiplatelets, statin. Will need continued optimization of cardiovascular risk factors. Status: Acute (2) Cellulitis of right foot: Status: Acute (3) Soft tissue emphysema: Status: Acute (4) Diabetic peripheral neuropathy associated with type 2 diabetes mellitus: Status: Acute (5) GARETH (acute kidney injury): Resolved Renal ultrasound unremarkable. Status: Acute Plan Diabetes with peripheral neuropathy Smoking addiction: He has been cutting down on smoking. History of CVA with residual aphasia HTN Hyperparathyroidism Attestations Medical Necessity Statement*: Continue admission for assessment of management of deep tissue right foot infection with PAD, microvascular disease with diabetes and neuropathy complicating healing. Coding Level of Care Code Acute Customer Support Assistant for [facility] Diagnoses Puncture wound of foot, right, complicated S91.331A Cellulitis of right foot L03.115 Soft tissue emphysema T79.7XXA Diabetic peripheral neuropathy associated with type 2 diabetes mellitus E11.42 GARETH (acute kidney injury) N17.9
[2021-09-26] MEDS: atorvastatin 40 mg Tablet PO (20:01)
[2021-09-26] MEDS: atenolol 50 mg Tablet 100 MG PO (20:01)
[2021-09-26] MEDS: tamsulosin 0.4 mg Capsule PO (20:01)
[2021-09-26 20:27] LABS: Glucose Point of Care 112 mg/dL (70-110)
[2021-09-27] VITALS (25 sets, daily range): BP systolic 142–195; BP diastolic 74–110; PULSE 61–71; RESP 10–31; TEMP 36.9; O2SAT 90–98
[2021-09-27] MEDS: HYDROmorphone 1 mg/mL INJ 1 mL IVP ×4 (00:20→21:12)
[2021-09-27] MEDS: ALPRAZolam 0.5 mg Tablet 0.25 MG PO (00:35)
[2021-09-27] MEDS: acetaminophen 325 mg Tablet 650 MG PO ×4 (00:35→21:14)
--- NOTE | 2021-09-27 01:44 | PC.NURSE ---
Pain Pt has been in increasingly more and more pain throughout shift. Dr. Finley notified and an extra one time dose of dilaudid was ordered. PRN Tylenol and xanax doses were given. Pt seems to be in much less pain now. and daughter stated concern over pain level. Pt states dilaudid helps pain, but only a small amount. Pt has been found multiple times panting and wincing in pain.
[2021-09-27 04:14] LABS: Basophils # 0.1 10^3/uL (0.0-0.1); Basophils % 0.5 %; Eosinophils # 0.2 10^3/uL (0.0-0.8); Eosinophils % 1.7 %; Hematocrit 30.2 % (42.0-52.0); Hemoglobin 9.8 g/dL (11.7-16.6); Lymphocytes # 1.4 10^3/uL (0.8-4.8); Mean Corpuscular HGB Conc 32.5 g/dL (30.0-36.0); Mean Corpuscular Volume 92.4 fl (80-94); Mean Platelet Volume 10.6 fL (7.4-10.4); Monocytes % 9.3 %; Neutrophils # 8.04 10^3/uL (1.8-7.7); Neutrophils % 75.2 %; Nucleated Red Blood Cells % 0 %; Platelet Count 233 10^3/cmm (130-400); Red Blood Count 3.27 10^6/uL (4.1-5.3); Red Cell Distribution Width 12.7 % (12.1-15.1); White Blood Count 10.7 10^3/uL (4.0-10.0)
[2021-09-27] MEDS: vancomycin 1,000 MG in sodium chloride 0.9% 250 ML 250 MG IV ×2 (04:24→17:41)
[2021-09-27 04:41] LABS: Anion Gap 15.1 (5-19); Blood Urea Nitrogen 9 mg/dL (6-20); Calcium 9.9 mg/dL (8.5-10.5); Carbon Dioxide 23 mmol/L (22-29); Chloride 98 mmol/L (98-107); Glomerular Filtration Rate 87.3 mL/min (90-130); Glucose 118 mg/dL (65-115); Osmolality Calculated 276 mOsm/kg (285-295); Potassium 3.1 mmol/L (3.5-5.1); Sodium 133 mmol/L (136-145)
--- NOTE | 2021-09-27 08:05 | PM.PN ---
Subjective Subjective: Patient is stable. Doing well. Pain is controlled. Vitals/I&O/Wt Last Vital Signs Temp 98.5 F 09/26/21 12:00 Pulse 63 09/27/21 05:43 Resp 12 09/27/21 04:00 BP 147/76 09/27/21 04:00 Pulse Ox 92 09/27/21 04:00 O2 Del Method 09/26/21 12:00 09/26/21 09/27/21 09/27/21 22:59 06:59 14:59 Intake Total 1500 / 3000 250 / 3250 Output Total 825 / 825 1000 / 1825 Balance 675 / 2175 -750 / 1425 Weight last 48 hrs Weight 222 lb 4 oz Physical Exam Narrative: GENERAL: Patient is alert, awake and oriented x3. [] NECK: No jugular vein distension. [] HEENT: No cyanosis. No icterus. No pallor. [] HEART: Regular S1 and S2. No murmur, rub or gallop. [] LUNGS: Clear to auscultate bilaterally. [] ABDOMEN: Soft, nontender and nondistended. Positive bowel sounds. No guarding, rebound or tenderness. [] CENTRAL NERVOUS SYSTEM: Grossly nonfocal. [] EXTREMITIES: Lower extremities with 1+ edema bilaterally. Right third toe amputation, has dressing applied. Pulses are not palpable in right foot both DP and PT. Data : 09/28/21 03:54 09/28/21 03:54 Micro: Microbiology 09/25/21 13:37 Anaerobic Culture - Preliminary Toe - #1 09/25/21 13:37 Gram Stain - Final Toe - #2 Wound Culture - Preliminary Staphylococcus species A&P Assessment and plan (1) Puncture wound of foot, right, complicated: Status: Acute (2) Diabetic peripheral neuropathy associated with type 2 diabetes mellitus: Status: Acute (3) Hypertension: Status: Acute (4) Uncontrolled type 2 diabetes mellitus: Status: Acute (5) GRAETH (acute kidney injury): Status: Acute (6) Peripheral artery disease: Status: Acute Plan Patient has significant PAD. Given concern for poor healing and significant PAD, decreased TAWNY and severely reduced TBI, peripheral angiogram was performed today. Patient has good blood supply till distal popliteal artery below the knee. His right TP segment and anterior tibial artery both are totally occluded. Gets reconstitution of posterior tibial artery via collaterals. Given his vasculature, chances of revascularization are minimal with very high risk of turning into acute limb while attempting cross through totally occluded sections and vascular damage to residual distal blood supply. Will recommend medical therapy for now. Patient will be high risk for amputation which, based on vasculature can be done below the knee if needed in future. Patient is stable for now. Continue current medications. Access site is normal Thank you for involving us with care of this patient. We will continue to follow. Please call with questions. Attestations Medical Necessity Statement*: Care expected to cross 2 midnights . 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
[2021-09-27 08:16] LABS: Glucose Point of Care 119 mg/dL (70-110)
[2021-09-27] MEDS: clopidogrel 75 mg Tablet PO (08:19)
[2021-09-27] MEDS: aspirin 325 mg EC Tablet PO (08:19)
[2021-09-27] MEDS: pantoprazole DR 40 mg Tablet 20 MG PO (08:19)
[2021-09-27] MEDS: fluoxetine 20 mg Capsule PO (08:19)
[2021-09-27] MEDS: gabapentin 400 mg Capsule PO ×2 (08:19→17:42)
[2021-09-27] MEDS: baclofen 10 mg Tablet PO (08:23)
[2021-09-27] MEDS: sodium chloride 0.9% 1,000 ML 100 ML IV (08:24)
[2021-09-27] MEDS: ciprofloxacin 400 MG/200 ML PREMIX 200 MG IV ×2 (09:20→19:41)
[2021-09-27] MEDS: potassium chloride ER 20 mEq Tablet 40 MEQ PO (09:20)
--- NOTE | 2021-09-27 09:43 | P.PN_ITS ---
Subjective Subjective: Patient seen at the bedside in the ICU. Patient is status post right lower extremity CTA. Results showed chronic occlusion, below-knee with only collaterals that reconstitute distally at the DP. Discussed at length with patient and patient's the severity of the vascular disease and the pos sibility of future below the knee amputation if infection worsens in the presence of peripheral arterial disease. Patient and patient's verbalized understanding. Patient states that overall his pain is well controlled. Denies any constitutional symptoms at this time. Vitals/I&O/Wt Last Vital Signs Temp 98.5 F 09/26/21 12:00 Pulse 66 09/27/21 09:00 Resp 25 H 09/27/21 09:00 BP 169/90 09/27/21 09:00 Pulse Ox 94 09/27/21 09:00 O2 Del Method 09/27/21 09:00 09/26/21 09/27/21 09/27/21 22:59 06:59 14:59 Intake Total 1500 / 3000 250 / 3250 1351.667 / 1351.667 Output Total 825 / 825 1000 / 1825 400 / 400 Balance 675 / 2175 -750 / 1425 951.667 / 951.667 Weight last 48 hrs Weight 222 lb 4 oz Physical Exam Narrative: GENERAL: A&O x 3 VASCULAR: DP/PT pulses nonpalpable with ischemic/necrotic changes to margins of right foot third toe amputation site. DERMATOLOGICAL: Right foot third digit amputation site margins purple in discoloration with ischemic changes on the dorsal aspect of the foot tracking to the midfoot. No active drainage or purulence. Third metatarsal head is exposed. No underlying fluctuance or signs of deep space abscess MUSCULOSKELETAL: Right foot third toe amputation NEUROLOGICAL: Neurological sensation to the affected foot and ankle is dimi nished Data : 09/27/21 03:41 09/27/21 03:41 Micro: Microbiology 09/25/21 13:37 Anaerobic Culture - Preliminary Toe - #1 09/25/21 13:37 Gram Stain - Final Toe - #2 Wound Culture - Preliminary Staphylococcus species A&P Assessment and plan (1) Peripheral artery disease: Status: Acute (2) Cellulitis of right foot: Status: Acute (3) Diabetic peripheral neuropathy associated with type 2 diabetes mellitus: Status: Acute (4) Soft tissue emphysema: Status: Acute Plan -Patient is status post right lower extremity CTA which showed chronic occlusion below the knee with collaterals that reconstitute distally at the DP. No target for revascularization. -Discussed at length with patient and patient's about possibility of limb amputation if infection worsens. -Continue local wound care and IV antibiotics -Wound cultures pending -We will reevaluate wound tomorrow morning. 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
[2021-09-27 11:46] LABS: Glucose Point of Care 203 mg/dL (70-110)
--- NOTE | 2021-09-27 13:12 | PC.SOCIAL ---
Pg 2 IMM Explained to pt Pg 2 IMM. No questions voiced. Provided pt a copy. Initialed, dated & timed a copy & placed in chart.
[2021-09-27] MEDS: insulin lispro 100 unit/1 mL SUBCUT ×3 (13:22→21:06)
[2021-09-27] MEDS: hyDRALAzine 10 mg Tablet PO (13:26)
[2021-09-27 17:10] LABS: Glucose Point of Care 226 mg/dL (70-110)
--- NOTE | 2021-09-27 20:13 | P.PN_ITS ---
Subjective Subjective: Reports today he is doing better. Pain is better. His reports pain is still intermittently present in bed when it is, currently he does feel better he states. No chest pain or trouble breathing. Vitals/I&O/Wt Last Vital Signs Temp 98.5 F 09/26/21 12:00 Pulse 68 09/27/21 19:00 Resp 24 H 09/27/21 19:10 BP 154/92 09/27/21 17:00 Pulse Ox 97 09/27/21 19:00 O2 Del Method 09/27/21 19:00 09/27/21 09/27/21 09/27/21 06:59 14:59 22:59 Intake Total 250 / 3250 1791.667 / 1791.667 440 / 2231.667 Output Total 1000 / 1825 1200 / 1200 Balance -750 / 1425 591.667 / 591.667 440 / 1031.667 Weight last 48 hrs Weight 100.811 kg Physical Exam Narrative: His accompanies him at bedside. Const: COMMON NORMALS: patient oriented x3 and alert GENERAL APPEARANCE: cooperative ORIENTATION/CONSCIOUSNESS: Yes awake HENMT: COMMON NORMALS: oropharynx normal Neck/C-Spine: COMMON NORMALS: no JVD Resp: COMMON NORMALS: normal respiratory effort and clear to auscultation bilaterally AUSCULTATION: clear to auscultation bilaterally Cardio: COMMON NORMALS: no JVD, regular rhythm, S1 normal heart sound present, S2 normal heart sound present and No murmurs present (Cardio) RHYTHM: regular rhythm HEART SOUNDS: S1 normal heart sound present and S2 normal heart sound present GI: COMMON NORMALS: Normal to inspection, nondistended, normoactive bowel sounds present, Soft to palpation and non-tender PALPATION: Yes Soft to palpation Extremity: COMMON NORMALS: no joint enlargement and no pedal edema Neuro: COMMON NORMALS: patient oriented x3 and moves all extremities SEN SORIUM/ORIENTATION: Yes alert Skin: COMMON NORMALS: no rashes or lesions noted GENERAL SKIN EXAM: no rashes or lesions noted OTHER: Dressing right foot. Normal progression of swelling proximally. Data : 09/27/21 03:41 09/27/21 03:41 Micro: Microbiology 09/25/21 13:37 Gram Stain - Final Toe - #2 Wound Culture - Final Staphylococcus aureus 09/25/21 13:37 Anaerobic Culture - Preliminary Toe - #1 A&P Assessment and plan (1) Puncture wound of foot, right, complicated: Improving infection. Leukocytosis decreasing. We discussed with him again regarding plan, concerns regarding difficulties with healing, and possibility of still needing BKA. They are agreeable with continuing wound care, antibiotics. Podiatry will decide regarding closure depending on progress. Underwent debridement in OR 09/25, with noted deep infection, and required amputation of the third digit. Poor bleeding and perfusion noted intraoperatively, so additionally underwent peripheral angiography today. Unfortunately is chronically occluded vessels below the knee with collaterals only. Some minor perfusion of DP from collaterals. Unfortunately no target for endovascular or open revascularization. Appreciate cardiology feedback. Discussed with podiatry. Continue wound care, antibiotics. Healing would expect will be challenging. In case healing not possible, BKA may be necessary. Staff aureus growing in cultures. MDR. Stop clindamycin. With diabetes with diabetic neuropathy microvascular circulation certainly pose a challenge to healing. Continue antiplatelets, statin. Will need continued optimization of cardiovascular risk factors. Status: Acute (2) Cellulitis of right foot: Status: Acute (3) Soft tissue emphysema: Status: Acute (4) Diabetic peripheral neuropathy associated with type 2 diabetes mellitus: Status: Acute (5) GARETH (acute kidney injury): Resolved Renal ultrasound unremarkable. Status: Acute Plan Diabetes with peripheral neuropathy Smoking addiction: He has been cutting down on smoking. History of CVA with residual aphasia HTN Hyperparathyroidism Attestations Medical Necessity Statement*: Continue admission for assessment of management of deep tissue infection status post amputation, requiring deep debridement, open wound right foot and gentleman with PAD, diabetes with difficult healing anticipated. Coding Level of Care Code Acute Triage Nurse for [facility] Diagnoses Puncture wound of foot, right, complicated S91.331A Cellulitis of right foot L03.115 Soft tissue emphysema T79.7XXA Diabetic peripheral neuropathy associated with type 2 diabetes mellitus E11.42 GARETH (acute kidney injury) N17.9
[2021-09-27 21:05] LABS: Glucose Point of Care 144 mg/dL (70-110)
[2021-09-27] MEDS: atorvastatin 40 mg Tablet PO (21:07)
[2021-09-27] MEDS: tamsulosin 0.4 mg Capsule PO (21:07)
[2021-09-27] MEDS: atenolol 50 mg Tablet 100 MG PO (21:07)
[2021-09-28] VITALS (16 sets, daily range): BP systolic 138–188; BP diastolic 75–84; PULSE 60–76; RESP 14–20; TEMP 36.5–36.9; O2SAT 93–97
[2021-09-28] MEDS: HYDROmorphone 1 mg/mL INJ 1 mL IVP ×4 (03:06→17:13)
[2021-09-28 04:45] LABS: Basophils % 0.3 %; Eosinophils # 0.1 10^3/uL (0.0-0.8); Hematocrit 32.6 % (42.0-52.0); Hemoglobin 10.5 g/dL (11.7-16.6); Lymphocytes # 0.9 10^3/uL (0.8-4.8); Lymphocytes % 6.7 %; Mean Corpuscular HGB Conc 32.2 g/dL (30.0-36.0); Mean Corpuscular Hemoglobin 29.9 pg (28.0-34.0); Mean Corpuscular Volume 92.9 fl (80-94); Mean Platelet Volume 10.5 fL (7.4-10.4); Monocytes % 7.1 %; Neutrophils # 11.69 10^3/uL (1.8-7.7); Neutrophils % 84.4 %; Nucleated Red Blood Cells % 0 %; Platelet Count 315 10^3/cmm (130-400); Red Blood Count 3.51 10^6/uL (4.1-5.3); Red Cell Distribution Width 12.9 % (12.1-15.1); White Blood Count 13.9 10^3/uL (4.0-10.0)
[2021-09-28 05:10] LABS: Anion Gap 16.4 (5-19); Blood Urea Nitrogen 8 mg/dL (6-20); Calcium 10.2 mg/dL (8.5-10.5); Carbon Dioxide 24 mmol/L (22-29); Chloride 99 mmol/L (98-107); Glucose 127 mg/dL (65-115); Osmolality Calculated 282 mOsm/kg (285-295); Potassium 3.4 mmol/L (3.5-5.1); Sodium 136 mmol/L (136-145)
[2021-09-28] MEDS: vancomycin 1,000 MG in sodium chloride 0.9% 250 ML 250 MG IV ×2 (05:11→17:12)
[2021-09-28 06:16] LABS: Glucose Point of Care 174 mg/dL (70-110)
[2021-09-28] MEDS: acetaminophen 325 mg Tablet 650 MG PO ×2 (07:15→18:48)
[2021-09-28] MEDS: insulin lispro 100 unit/1 mL SUBCUT ×4 (08:36→21:29)
[2021-09-28] MEDS: pantoprazole DR 40 mg Tablet 20 MG PO (08:38)
[2021-09-28] MEDS: clopidogrel 75 mg Tablet PO (08:38)
[2021-09-28] MEDS: gabapentin 400 mg Capsule PO ×2 (08:38→17:19)
[2021-09-28] MEDS: aspirin 325 mg EC Tablet PO (08:38)
[2021-09-28] MEDS: fluoxetine 20 mg Capsule PO (08:38)
[2021-09-28] MEDS: ciprofloxacin 400 MG/200 ML PREMIX 200 MG IV ×2 (08:39→19:45)
--- NOTE | 2021-09-28 09:47 | PM.PN ---
Subjective Subjective: Patient seen at bedside this morning with present. They are concerned about discoloration of the fourth digit as it is purple today and is becoming increasingly more purple. Patient states the pain is well controlled at this point. Denies constitutional symptoms. Vitals/I&O/Wt Last Vital Signs Temp 98.0 F 09/28/21 07:42 Pulse 63 09/28/21 07:42 Resp 16 09/28/21 08:35 BP 167/77 09/28/21 07:42 Pulse Ox 96 09/28/21 08:35 O2 Del Method 09/28/21 07:42 09/27/21 09/28/21 09/28/21 22:59 06:59 14:59 Intake Total 890 / 2681.667 250 / 2931.667 Output Total 0 / 1200 1100 / 2300 700 / 700 Balance 890 / 1481.667 -850 / 631.667 -700 / -700 Physical Exam Narrative: GENERAL: A&O x 3 VASCULAR: DP/PT pulses nonpalpable with ischemic/necrotic changes to margins of right foot third toe amputation site. DERMATOLOGICAL: Right foot third digit amputation site margins purple in discoloration with ischemic changes on the dorsal aspect of the foot tracking to the midfoot. No active drainage or purulence. Third metatarsal head is exposed. No underlying fluctuance or signs of deep space abscess. Ischemic discoloration changes extending proximally to encompass the entire midfoot and lateral foot to the level of the calcaneocuboid joint. Right foot fourth digit now discolored secondary to ischemia. Worsening. MUSCULOSKELETAL: Right foot third toe amputation NEUROLOGICAL: Neurological sensation to the affected foot and ankle is diminished Data : 09/28/21 03:54 09/28/21 03:54 Micro: Microbiology 09/25/21 13:37 Gram Stain - Final Toe - #2 Wound Culture - Final Staphylococcus aureus 09/25/21 13:37 Anaerobic Culture - Preliminary Toe - #1 A&P Assessment and plan (1) Peripheral artery disease: Status: Acute (2) Cellulitis of right foot: Status: Acute (3) Diabetic peripheral neuropathy associated with type 2 diabetes mellitus: Status: Acute (4) Soft tissue emphysema: Status: Acute Plan -Patient is status post right lower extremity CTA which showed chronic occlusion below the knee with collaterals that reconstitute distally at the DP. No target for revascularization. -Discussed at length with patient and patient's that right lower extremity continues to deteriorate secondary to ischemia. Told the patient and the patient's ultimately they have 2 options moving forward. The first being a long course of local wound care to get the wound to heal by secondary intention versus below the knee amputation of right lower extremity. The patient and patient's state that they would talk about it further today and inform us of their decision by tomorrow morning. -No further surgical intervention by podiatry at this time. Concern that returning to the operating room for delayed primary closure would only exacerbate the right lower extremity infection and create further trauma to the right foot -Continue local wound care and IV antibiotics -Wound cultures: MSSA -Daily dressing with packing strips and Betadine, DSD -Discharge planning: Patient's stated that they are not candidates for home health through their insurance. If patient undergoes right below the knee amputation he will need home health. Unsure if below-knee amputation changes coverage. Please advise. 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
[2021-09-28 11:23] LABS: Glucose Point of Care 294 mg/dL (70-110)
--- NOTE | 2021-09-28 13:49 | P.PN_ITS ---
Subjective Subjective: Patient is stable. No complaints of pain at this time Vitals/I&O/Wt Last Vital Signs Temp 98.0 F 09/28/21 07:42 Pulse 61 09/28/21 12:00 Resp 16 09/28/21 12:43 BP 178/83 09/28/21 12:00 Pulse Ox 96 09/28/21 12:43 O2 Del Method 09/28/21 12:00 09/27/21 09/28/21 09/28/21 22:59 06:59 14:59 Intake Total 890 / 2681.667 250 / 2931.667 Output Total 0 / 1200 1100 / 2300 1100 / 1100 Balance 890 / 1481.667 -850 / 631.667 -1100 / -1100 Physical Exam Narrative: GENERAL: Patient is alert, awake and oriented x3. [] NECK: No jugular vein distension. [] HEENT: No cyanosis. No icterus. No pallor. [] HEART: Regular S1 and S2. No murmur, rub or gallop. [] LUNGS: Clear to auscultate bilaterally. [] CENTRAL NERVOUS SYSTEM: Grossly nonfocal. [] EXTREMITIES: Lower extremities with 1+ edema bilaterally. Right third toe amputation, has dressing applied. Pulses are not palpable in right foot both DP and PT. Data : 10/03/21 04:18 10/03/21 04:18 Micro: Microbiology 09/25/21 13:37 Gram Stain - Final Toe - #2 Wound Culture - Final Staphylococcus aureus 09/25/21 13:37 Anaerobic Culture - Preliminary Toe - #1 A&P Assessment and plan (1) Puncture wound of foot, right, complicated: Status: Resolved (2) Diabetic peripheral neuropathy associated with type 2 diabetes mellitus: Status: Inactive (3) Hypertension: Status: Inactive (4) Uncontrolled type 2 diabetes mellitus: Status: Inactive (5) GARETH (acute kidney injury): Status: Resolved (6) Peripheral artery disease: Status: Inactive Plan Patient has significant PAD. Given concern for poor healing and significant PAD, decreased TAWNY and severely reduced TBI, peripheral angiogram was performed today. Patient has good blood supply till distal popliteal artery below the knee. His right TP segment and anterior tibial artery both are totally occluded. Gets reconstitution of posterior tibial artery via collaterals. Given his vasculature, chances of revascularization are minimal with very high risk of turning into acute limb while attempting cross through totally occluded sections and vascular damage to residual distal blood supply. Will recommend medical therapy for now. Patient will be high risk for amputation which, based on vasculature can be done below the knee if needed in future. Patient is doing stable. We will sign off. Please call with questions. Attestations Medical Necessity Statement*: Care expected to cross 2 midnights. Coding Level of Care Code Acute Experimental Mechanic Spacecraft for Jennifer [facility] Diagnoses Puncture wound of foot, right, complicated S91.331A Diabetic peripheral neuropathy associated with type 2 diabetes mellitus E11.42 Hypertension I10 Uncontrolled type 2 diabetes mellitus E11.65 GARETH (acute kidney injury) N17.9 Peripheral artery disease I73.9
[2021-09-28 17:29] LABS: Glucose Point of Care 274 mg/dL (70-110)
--- NOTE | 2021-09-28 19:58 | P.PN_ITS ---
Subjective Subjective: He reports he is feeling about the same, denies any additional symptoms. Pain overall under better control. No chest pain or trouble breathing. Vitals/I&O/Wt Last Vital Signs Temp 98.1 F 09/28/21 16:00 Pulse 62 09/28/21 16:00 Resp 16 09/28/21 17:13 BP 174/80 09/28/21 16:00 Pulse Ox 97 09/28/21 17:13 O2 Del Method 09/28/21 16:00 09/28/21 09/28/21 09/28/21 06:59 14:59 22:59 Intake Total 250 / 2931.667 240 / 240 1320 / 1560 Output Total 1100 / 2300 1100 / 1100 500 / 1600 Balance -850 / 631.667 -860 / -860 820 / -40 Physical Exam Narrative: Mother at bedside Const: COMMON NORMALS: patient oriented x3 and alert GENERAL APPEARANCE: cooperative ORIENTATION/CONSCIOUSNESS: Yes awake HENMT: COMMON NORMALS: oropharynx normal Neck/C-Spine: COMMON NORMALS: no JVD Resp: COMMON NORMALS: normal respiratory effort and clear to auscultation bilaterally AUSCULTATION: clear to auscultation bilaterally Cardio: COMMON NORMALS: no JVD, regular rhythm, S1 normal heart sound present, S2 normal heart sound present and No murmurs present (Cardio) RHYTHM: regular rhythm HEART SOUNDS: S1 normal heart sound present and S2 normal heart sound present GI: COMMON NORMALS: Normal to inspection, nondistended, normoactive bowel sounds present, Soft to palpation and non-tender PALPATION: Yes Soft to palpation Extremity: COMMON NORMALS: no joint enlargement and no pedal edema Neuro: COMMON NORMALS: patient oriented x3 and moves all extremities S ENSORIUM/ORIENTATION: Yes alert Skin: COMMON NORMALS: no rashes or lesions noted GENERAL SKIN EXAM: no rash es or lesions noted OTHER: Dressing right foot. Data : 09/28/21 03:54 09/28/21 03:54 Micro: Microbiology 09/25/21 13:37 Gram Stain - Final Toe - #2 Wound Culture - Final Staphylococcus aureus A&P Assessment and plan (1) Puncture wound of foot, right, complicated: Podiatry assessment noted - unimproving condition of right lower extremity, patient and family to discuss further consideration of BKA. With worsening leukocytosis. Add back clindamycin. Underwent debridement in OR 09/25, with noted deep infection, and required amputation of the third digit. Poor bleeding and perfusion noted intraopera tively, so additionally underwent peripheral angiography today. Unfortunately is chronically occluded vessels below the knee with collaterals only. Some minor perfusion of DP from collaterals. Unfortunately no target for endovascular or open revascularization. Staff aureus growing in cultures. MDR. With diabetes with diabetic neuropathy microvascular circulation certainly pose a challenge to healing. Continue antiplatelets, statin. Will need continued optimization of cardiovascular risk factors. Status: Acute (2) Cellulitis of right foot: Status: Acute (3) Soft tissue emphysema: Status: Acute (4) Diabetic peripheral neuropathy associated with type 2 diabetes mellitus: Status: Acute (5) GARETH (acute kidney injury): Resolved Renal ultrasound unremarkable. Status: Acute Plan Diabetes with peripheral neuropathy Smoking addiction: He has been cutting down on smoking. History of CVA with residual aphasia HTN Hyperparathyroidism Attestations Medical Necessity Statement*: Continue goals of care discussion, assessment millimeters infection of right foot admitted with PAD, diabetes with neuropathy with poor healing. Coding Level of Care Code Acute Educational Paraprofessional for [facility] Diagnoses Puncture wound of foot, right, complicated S91.331A Cellulitis of right foot L03.115 Soft tissue emphysema T79.7XXA Diabetic peripheral neuropathy associated with type 2 diabetes mellitus E11.42 GARETH (acute kidney injury) N17.9
[2021-09-28 20:43] LABS: Glucose Point of Care 305 mg/dL (70-110)
[2021-09-28] MEDS: clindamycin 600 MG/50 ML PREMIX 100 MG IV (21:26)
[2021-09-28] MEDS: tamsulosin 0.4 mg Capsule PO (21:28)
[2021-09-28] MEDS: atorvastatin 40 mg Tablet PO (21:28)
[2021-09-28] MEDS: atenolol 50 mg Tablet 100 MG PO (21:28)
[2021-09-29] VITALS (13 sets, daily range): BP systolic 148–182; BP diastolic 71–84; PULSE 60–71; RESP 16–19; TEMP 36.4–36.8; O2SAT 94–96
[2021-09-29] MEDS: HYDROmorphone 1 mg/mL INJ 1 mL IVP ×3 (02:08→16:28)
[2021-09-29 05:06] LABS: Basophils # 0.1 10^3/uL (0.0-0.1); Basophils % 0.5 %; Eosinophils # 0.3 10^3/uL (0.0-0.8); Eosinophils % 3.2 %; Hematocrit 32.5 % (42.0-52.0); Hemoglobin 10.5 g/dL (11.7-16.6); Lymphocytes # 1.4 10^3/uL (0.8-4.8); Lymphocytes % 13.2 %; Mean Corpuscular HGB Conc 32.3 g/dL (30.0-36.0); Mean Corpuscular Hemoglobin 30.2 pg (28.0-34.0); Mean Corpuscular Volume 93.4 fl (80-94); Mean Platelet Volume 10.2 fL (7.4-10.4); Monocytes # 0.9 10^3/uL (0.2-0.9); Monocytes % 8.9 %; Neutrophils # 7.78 10^3/uL (1.8-7.7); Neutrophils % 73.6 %; Nucleated Red Blood Cells % 0 %; Platelet Count 337 10^3/cmm (130-400); Red Blood Count 3.48 10^6/uL (4.1-5.3); Red Cell Distribution Width 12.9 % (12.1-15.1); White Blood Count 10.6 10^3/uL (4.0-10.0)
[2021-09-29] MEDS: clindamycin 600 MG/50 ML PREMIX 100 MG IV (05:07)
[2021-09-29] MEDS: vancomycin 1,000 MG in sodium chloride 0.9% 250 ML 250 MG IV ×2 (05:09→18:22)
[2021-09-29] MEDS: acetaminophen 325 mg Tablet 650 MG PO (05:19)
[2021-09-29 05:30] LABS: Blood Urea Nitrogen 7 mg/dL (6-20); Calcium 10.3 mg/dL (8.5-10.5); Carbon Dioxide 25 mmol/L (22-29); Chloride 99 mmol/L (98-107); Glucose 166 mg/dL (65-115); Osmolality Calculated 282 mOsm/kg (285-295); Sodium 135 mmol/L (136-145)
[2021-09-29 05:32] LABS: Anion Gap 15.2 (5-19); Potassium 4.2 mmol/L (3.5-5.1)
[2021-09-29 06:30] LABS: Glucose Point of Care 211 mg/dL (70-110)
--- NOTE | 2021-09-29 08:35 | P.PN_ITS ---
Subjective Subjective: Patient seen bedside this morning. Had lengthy discussion with patient patient's and patient's daughter about patient's condition and options. At this time, the patient states that he wants to proceed with right below the knee amputation. All patient and patient's family's questions were a nswered to their satisfaction. Vitals/I&O/Wt Last Vital Signs Temp 97.6 F 09/29/21 08:00 Pulse 60 09/29/21 08:00 Resp 17 09/29/21 08:00 BP 148/78 09/29/21 08:00 Pulse Ox 96 09/29/21 08:00 O2 Del Method 09/28/21 20:00 09/28/21 09/29/21 09/29/21 22:59 06:59 14:59 Intake Total 1940 / 2180 300 / 2480 Output Total 500 / 1600 1350 / 2950 Balance 1440 / 580 -1050 / -470 Physical Exam Narrative: GENERAL: A&O x 3 VASCULAR: DP/PT pulses nonpalpable with ischemic/necrotic changes to margins of right foot third toe amputation site. DERMATOLOGICAL: Right foot third digit amputation site margins purple in discoloration with ischemic changes on the dorsal aspect of the foot tracking to the midfoot. No active drainage or purulence. Third metatarsal head is exposed. No underlying fluctuance or signs of deep space abscess. Ischemic discoloration changes extending proximally to encompass the entire midfoot and lateral foot to the level of the calcaneocuboid joint. Right foot fourth digit now discolored secondary to ischemia. Worsening. MUSCULOSKELETAL: Right foot third toe amputation NEUROLOGICAL: Neurological sensation to the affected foot and ankle is diminished Data : 09/29/21 04:36 09/29/21 04:36 A&P Assessment and plan (1) Peripheral artery disease: Status: Acute (2) Cellulitis of right foot: Status: Acute (3) Diabetic peripheral neuropathy associated with type 2 diabetes mellitus: Status: Acute (4) Soft tissue emphysema: Status: Acute Plan -Patient is status post right lower extremity CTA which showed chronic occlusion below the knee with collaterals that reconstitute distally at the DP. No target for revascularization. -Discussed at length with patient and patient's that right lower extremity continues to deteriorate secondary to ischemia. Told the patient and the patient's ultimately they have 2 options moving forward. The first being a long course of local wound care to get the wound to heal by secondary intention versus below the knee amputation of right lower extremity. -After discussing it with the patient's family, the patient has decided that he wants to proceed with right below the knee amputation -No further surgical intervention by podiatry at this time. Patient is opting for a right below the knee amputation at this time. -Wound cultures: MSSA -Daily dressing with packing strips and Betadine, DSD -Discharge planning: Patient's stated that they are not candidates for home health through their insurance. If patient undergoes right below the knee amputation he will need home health. Unsure if below-knee amputation changes coverage. Please advise. Attestations Medical Necessity Statement*: See above Coding Level of Care Code Acute Intercell Connector Placer for Jennifer [facility] Diagnoses Peripheral artery disease I73.9 Cellulitis of right foot L03.115 Diabetic peripheral neuropathy associated with type 2 diabetes mellitus E11.42 Soft tissue emphysema T79.7XXA
[2021-09-29] MEDS: pantoprazole DR 40 mg Tablet 20 MG PO (09:08)
[2021-09-29] MEDS: clopidogrel 75 mg Tablet PO (09:08)
[2021-09-29] MEDS: aspirin 325 mg EC Tablet PO (09:08)
[2021-09-29] MEDS: gabapentin 400 mg Capsule PO ×2 (09:08→17:10)
[2021-09-29] MEDS: fluoxetine 20 mg Capsule PO (09:09)
[2021-09-29] MEDS: insulin lispro 100 unit/1 mL SUBCUT ×4 (09:09→20:57)
[2021-09-29] MEDS: ciprofloxacin 400 MG/200 ML PREMIX 200 MG IV (09:09)
--- NOTE | 2021-09-29 10:39 | PM.PN ---
Subjective Subjective: Patient seen and assessed this morning. They have made the decision to go ahead and proceed with a BKA. Patient states pain is under control currently. Medications: Reviewed: Yes Vitals/I&O/Wt Last Vital Signs Temp 97.6 F 09/29/21 08:00 Pulse 60 09/29/21 08:00 Resp 18 09/29/21 09:11 BP 148/78 09/29/21 08:00 Pulse Ox 96 09/29/21 08:00 O2 Del Method 09/28/21 20:00 09/28/21 09/29/21 09/29/21 22:59 06:59 14:59 Intake Total 1940 / 2180 300 / 2480 480 / 480 Output Total 500 / 1600 1350 / 2950 Balance 1440 / 580 -1050 / -470 480 / 480 Physical Exam Narrative: General: No acute distress, AO x3, noted dysarthria which is not new HEENT: PERRLA, pupils bilaterally equal and reactive, pallors not present Chest: Normal vesicular breath sounds, no added sounds, equal good air entry bilaterally CVS: S1-S2 regular, no murmurs, no tachycardia, no gallops, no rubs Abdomen: Soft, nontender, no organomegaly, bowel sounds present Extremities: Surgical dressing over right foot, not open for exam by me. Noted gangrenous changes involving the fourth distal toe. Data : 09/29/21 04:36 09/29/21 04:36 A&P Assessment and plan (1) Puncture wound of foot, right, complicated: Patient admitted with gas gangrene of the right foot Underwent debridement in OR 09/25 with podiatry, with noted deep infection, and required amputation of the third digit. Continues to have worsening with noted gangrenous changes. After extensive discussion with the family and podiatry team, family has decided to proceed with BKA at this point. We will contact orthopedics Dr. Nielsen for the procedure. N.p.o. postmidnight. OR cultures have revealed MSSA. Discontinue clindamycin and ciprofloxacin, change antibiotics to piperacillin tazobactam. Status: Acute (2) Cellulitis of right foot: Status: Acute (3) Soft tissue emphysema: Status: Acute (4) Diabetic peripheral neuropathy associated with type 2 diabetes mellitus: Status: Acute (5) GARETH (acute kidney injury): Resolved Renal ultrasound unremarkable. Status: Acute Plan Diabetes with peripheral neuropathy Smoking addiction: He has been cutting down on smoking. History of CVA with residual aphasia HTN Hyperparathyroidism Attestations Medical Necessity Statement*: Plan for BKA, orthopedics consult today. 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
--- NOTE | 2021-09-29 11:22 | PC.SOCIAL ---
IMM Updated Updated pt on IMM. No questions voiced. Provided pt a copy. Initialed, dated, & timed copy in chart.
[2021-09-29] MEDS: piperacillin-tazobactam 3.375 GM in sodium chloride 0.9% (plus) 50 ML IV ×2 (11:52→20:41)
[2021-09-29 11:54] LABS: Glucose Point of Care 258 mg/dL (70-110)
[2021-09-29 16:55] LABS: Glucose Point of Care 269 mg/dL (70-110)
[2021-09-29 17:21] LABS: Vancomycin Trough 13.4 ug/mL (10-15)
--- NOTE | 2021-09-29 18:18 | P.CONIM_ITS ---
Providers/Reason For Consult Consulting Physician/Specialty*: Ed Nielsen DO/orthopedic surgery Reason for Consult*: Right foot ischemia with request below the knee amp utation Requesting Physician: Dr. Pruett and Dr. Benoit Attending Physician: Namrata Benoit MD Primary Care Provider: Dillon Stein History of Present Illness History of Present Illness Aldo Alcaraz is a 55 year old male presenting was admitted to the hospital on 09/24/2021. Patient has a past history of CVA with residual aphasia as well as diabetes mellitus, peripheral arterial disease. He initially presented to podiatry clinic with a nonhealing wound and had significant discoloration of the third toe. Patient had allegedly stepped on a staple a week prior and subsequently developed right foot gas gangrene. Seen by the podiatry team and underwent debridement as well as right third toe amputation. Patient on dressing changes today noted by podiatry further discoloration of the right fourth toe however no active purulent drainage or rapid progression of infection. Given the ischemic changes progressing throughout the foot Dr. Pruett as well as Dr. Benoit had discussion with patient about potentially a right below the knee amputation. This was made after Dr. Gomes performed angiogram to the extremity and ultimately concluded high risk for amputation and based on vasculature patient level of amputation would be a below the knee if needed in the future. After discussion with his hospitalist as well as his headstart teacher they agreed they feel the next best step would be a right below the knee amputation as a result orthopedics was consulted to perform right below the knee amputation. Review of Systems General: Reports: 10 or more systems reviewed and unremarkable except in HPI and below Const: Denies: fever(s) or chills Card: Denies: chest pain Resp: Denies: dyspnea GI: Denies: nausea or vomiting Musc: Reports: extremity swelling (Right fourth toe discoloration) Neuro: Reports: numbness in extremities Medications/Allergies Home Medications Medication Instructions Recorded Confirmed Last Taken Type amlodipine 10 mg tablet 10 mg PO BEDTIME 12/07/19 09/24/21 09/23/21 History atorvastatin 40 mg tablet 40 mg PO BEDTIME 12/07/19 09/24/21 09/23/21 History baclofen 10 mg tablet 10 mg PO BID PRN Pain 12/07/19 09/24/21 09/24/21 History cholecalciferol (vitamin D3) 50 50 mcg PO DAILY 12/07/19 09/24/21 09/24/21 History mcg (2,000 unit) capsule clopidogrel 75 mg tablet 75 mg PO DAILY 12/07/19 09/24/21 09/24/21 History fluoxetine 20 mg tablet 20 mg PO DAILY 12/07/19 09/24/21 09/24/21 History lisinopril 40 mg tablet 40 mg PO DAILY 12/07/19 09/24/21 09/24/21 History pantoprazole 20 mg tablet,delayed 20 mg PO DAILY 12/07/19 09/24/21 09/24/21 History release tamsulosin 0.4 mg capsule 0.4 mg PO BEDTIME 12/07/19 09/24/21 09/23/21 History metformin 1,000 mg tablet 1,000 mg PO BID #180 tabs 12/08/19 09/24/21 09/24/21 Rx atenolol 100 mg tablet 100 mg PO BEDTIME 08/20/20 09/24/21 09/23/21 History aspirin 81 mg tablet,delayed 325 mg PO DAILY 10/01/20 09/24/21 09/24/21 History release blood-glucose meter,continuous #1 ea 07/17/21 09/24/21 Unknown Rx (Dexcom G6 Mattress Specialist) blood-glucose sensor (Dexcom G6 #3 ea 07/17/21 09/24/21 Unknown Rx Sensor) blood-glucose transmitter (Dexcom #1 ea 07/17/21 09/24/21 Unknown Rx G6 Transmitter) flash glucose scanning reader #1 ea 07/30/21 09/24/21 Unknown Rx (FreeStyle April 2 Prosper) flash glucose sensor (FreeStyle #6 ea 07/30/21 09/24/21 Unknown Rx April 2 Sensor) hydroxyzine HCl 25 mg tablet 25 mg PO BID PRN Anxiety 08/17/21 09/24/21 Unknown History ciprofloxacin HCl 500 mg tablet 500 mg PO BID 09/24/21 09/24/21 09/24/21 History gabapentin 400 mg capsule 400 mg PO BID 09/24/21 09/24/21 09/24/21 History hydralazine 10 mg tablet 10 mg PO Q6H PRN Blood Pressure 09/24/21 09/24/21 09/24/21 History hydrochlorothiazide 25 mg tablet 25 mg PO DAILY 09/24/21 09/24/21 09/24/21 History insulin detemir U-100 100 unit/mL 44 unit SUBCUT BID 09/24/21 09/24/21 09/24/21 History (3 mL) subcutaneous pen (Levemir FlexTouch U-100 Insulin) insulin lispro 100 unit/mL See Rx Instructions .Route .COMPLEX 09/24/21 09/24/21 09/24/21 History subcutaneous pen (Humalog KwikPen (U-100) Insulin) Allergies Allergy/AdvReac Type Severity Reaction Status Date / Time No Known Allergies Allergy Verified 09/24/21 14:27 Current Medications Generic Name Dose Route Start Last Admin Trade Name Freq PRN Reason Stop Dose Admin Acetaminophen 650 mg 09/24/21 20:09 09/29/21 05:19 Acetaminophen 325 Mg Tablet PO 650 mg Q6H PRN Administration Mild/Mod Pain Or Temp >/= 101 Alprazolam 0.25 mg 09/26/21 17:13 09/27/21 00:35 Alprazolam 0.5 Mg Tablet PO 0.25 mg TID PRN Administration ANXIETY Aspirin 325 mg 09/26/21 10:30 09/29/21 09:08 Aspirin 325 Mg Ec Tablet PO 325 mg DAILY ABBEY Administration Atenolol 100 mg 09/24/21 21:00 09/28/21 21:28 Atenolol 50 Mg Tablet PO 100 mg BEDTIME ABBEY Administration Atorvastatin Calcium 40 mg 09/24/21 21:00 09/28/21 21:28 Atorvastatin 40 Mg Tablet PO 40 mg BEDTIME ABBEY Administration Baclofen 10 mg 09/24/21 20:09 09/27/21 08:23 Baclofen 10 Mg Tablet PO 10 mg BID PRN Administration Pain Clopidogrel Bisulfate 75 mg 09/25/21 09:00 09/29/21 09:08 Clopidogrel 75 Mg Tablet PO 75 mg DAILY ABBEY Administration Fluoxetine HCl 20 mg 09/25/21 09:00 09/29/21 09:09 Fluoxetine 20 Mg Capsule PO 20 mg DAILY ABBEY Administration Gabapentin 400 mg 09/25/21 09:00 09/29/21 17:10 Gabapentin 400 Mg Capsule PO 400 mg BID ABBEY Administration Hydralazine HCl 10 mg 09/24/21 20:09 09/27/21 13:26 Hydralazine 10 Mg Tablet PO 10 mg Q6H PRN Administration Blood Pressure Hydromorphone HCl 1 mg 09/25/21 09:09 09/29/21 16:28 Hydromorphone 1 Mg/Ml Inj 1 Ml IVP 1 mg Q4H PRN Administration SEVERE PAIN Hydromorphone HCl 2 mg 09/26/21 20:11 09/29/21 06:01 Hydromorphone 4 Mg Tablet PO 2 mg Q4H PRN Administration SEVERE PAIN Vancomycin HCl 1,000 mg/ 250 mls @ 250 mls/hr 09/25/21 05:00 09/29/21 06:09 Sodium Chloride IV Infused Q12H ABBEY Infusion Piperacillin Sod/Tazobactam 50 mls @ 12.5 mls/hr 09/29/21 11:00 09/29/21 11:52 Sod 3.375 gm/ Sodium Chloride IV 12.5 mls/hr Q8H ABBEY Administration Protocol As Directed Insulin Detemir 22 unit 09/25/21 09:00 09/29/21 17:07 Insulin Detemir 100 Units/1 Ml SUBCUT 22 unit BID ABBEY Administration Insulin Human Lispro 0 unit 09/24/21 21:00 09/29/21 17:08 Insulin Lispro 100 Unit/1 Ml SUBCUT 8 unit WM&BEDTIME ABBEY Administration Protocol Ondansetron HCl 4 mg 09/24/21 20:09 09/25/21 09:31 Ondansetron 2 Mg/Ml Sdv 2 Ml IVP 4 mg Q8H PRN Administration vomiting, or N/V if npo Pantoprazole Sodium 20 mg 09/25/21 09:00 09/29/21 09:[address] 40 Mg Tablet PO 20 mg DAILY ABBEY Administration Tamsulosin HCl 0.4 mg 09/24/21 21:00 09/28/21 21:28 Tamsulosin 0.4 Mg Capsule PO 0.4 mg BEDTIME ABBEY Administration PFSH Acute PFSH: Medical History (Updated 09/29/21 @ 18:32 by Ed Nielsen DO) Diabetes Diabetic neuropathy Diaphragmatic hernia without mention of obstruction or gangrene Hyperparathyroidism Hypertension Ischemic neuropathy of right foot Peripheral Vascular Disease Stricture and stenosis of esophagus Stroke Surgical History History of hip surgery Family History Father Diabetes Mother Diabetes Brother Cancer colon Social History Smoking and tobacco status: current every day smoker Alcohol intake: never Substance/Drug Use: former Date of last use: months ago Other details last substance use: Smoked methamphetmaine in the past. Denies ever injection use. Marital status: Vitals/I&O/Wt Last Vital Signs Temp 97.6 F 09/29/21 08:00 Pulse 66 09/29/21 15:46 Resp 18 09/29/21 16:28 BP 182/79 09/29/21 15:46 Pulse Ox 96 09/29/21 15:46 O2 Del Method 09/29/21 08:00 09/29/21 09/29/21 09/29/21 06:59 14:59 22:59 Intake Total 300 / 2480 955 / 955 240 / 1195 Output Total 1350 / 2950 Balance -1050 / -470 955 / 955 240 / 1195 Physical Exam Narrative: Orthopedic specific examination: Patient has dressing over the right lower extremity which was subsequently changed back to podiatry this morning. The right fourth toe is visible and shows dark necrotic discoloration. No expressible purulence is noted out of the drainage. The first and second toe are pale with no capillary refill. Patient is able to wiggle his toes endorsing motor to the right lower extremity. Patient has no erythema or bullae tracking proximally up the right lower extremity. There is a noticeable warmth and skin place change roof bolter the mid substance of the tibia indicating blood flow. Patient endorses diminished sensation diffusely through the right lower extremity however normal sensation appears over the mid substance of the tibia. Const: COMMON NORMALS: no acute distress, alert and well nourished Resp: COMMON NORMALS: normal respiratory effort and No retractions Neuro: SENSORIUM/ORIENTATION: Yes alert Data : 09/29/21 04:36 09/29/21 04:36 Micro: Microbiology 09/24/21 16:26 Blood Culture - Final Blood NO GROWTH AFTER 5 DAYS 09/24/21 16:20 Blood Culture - Final Blood NO GROWTH AFTER 5 DAYS 09/25/21 13:37 Anaerobic Culture - Preliminary Toe - #1 A&P Assessment and plan (1) Ischemic neuropathy of right foot: Status: Acute (2) Peripheral artery disease: Status: Acute (3) Cellulitis of right foot: Status: Acute (4) Puncture wound of foot, right, complicated: Status: Acute (5) Diabetic peripheral neuropathy associated with type 2 diabetes mellitus: Status: Acute (6) Uncontrolled type 2 diabetes mellitus: Status: Acute (7) Hypertension: Status: Acute Plan Orthopedic assessment and plan Assessment: -Right fourth toe ischemia -Right foot dry gangrene -Status post right foot irrigation and debridement with third toe amputation with podiatry -Peripheral vascular disease -Diabetes mellitus Plan: -Plan for right below the knee amputation -Obtain consent -Defer medical optimization to hospitalist team -Continue with antibiotics per hospitalist -Nonweightbearing right lower extremity -Continue with right foot dressing changes per podiatry -Previous imaging and chart reviewed -Plan for right below the knee amputation on 10/01/2021 -Patient will be made n.p.o. at midnight tonight in case of any acute changes requiring urgent right below the knee amputation -Orthopedics will evaluate tomorrow morning and give diet if patient continues to remain stable. MDM: Aldo hubbard is a 55-year-old male with a complex past medical history of stroke as well as peripheral vascular disease diabetes mellitus with a complex right foot history with gas gangrene which was treated by podiatry and is currently stabilized. However on evaluation today patient started to have discoloration of his fourth toe and after detailed discussion with the hospitalist as well as podiatry patient expressed desire not to continue with multiple debridements as well as toe amputations and would like to have a right below the knee amputation. Patient did have angiogram and was recommended the patient would be able to heal a right below the knee amputation. As result orthopedics was consulted. On my evaluation of the patient he is clinically stable and his vital signs are stable and afebrile. His white count has down trended and at this point no evidence of acute necrotizing fasciitis or gas gangrene progressing up the right lower extremity is noted. At this point time persistent necrosis is noted due to patient's poor peripheral vascular disease and complication of diabetes. Reviewing patient's chart his ABIs show 0.6-2 the right compared to 0.8 on the left. His TBI 0.31 to the right and 3.3 to left per medical documentation. This point time reviewing patient's chart history is physical exam my recommendation would be for a right below the knee amputation in hopes that this would prevent multiple surgeries in the future. Through shared decision making we thoroughly discussed the risk benefits complications and alternatives to a right below the knee amputation which patient and understand and agree to proceed. Risks are included but not limited to make it better, make it worse, infection, blood loss, wound dehiscence or healing issues. At this point time patient agrees to proceed with surgery. We will keep patient n.p.o. at midnight tonight just in case he has any acute decompensation or worsening infection otherwise plan would be for a scheduled right below the knee amputation this coming Wednesday on 10/01/2021. Patient understands and agrees with current plan. All questions answered. Consult Attestations Time Spent in Patient Care: 16 - 35 minutes Coding Level of Care Code Acute Facilities Specialist for [facility] Fwd Diagnoses Ischemic neuropathy of right foot G57.91 Peripheral artery disease I73.9 Cellulitis of right foot L03.115 Puncture wound of foot, right, complicated S91.331A Diabetic peripheral neuropathy associated with type 2 diabetes mellitus E11.42 Uncontrolled type 2 diabetes mellitus E11.65 Hypertension I10 Time Spent (min) 45
[2021-09-29 20:31] LABS: Glucose Point of Care 301 mg/dL (70-110)
[2021-09-29] MEDS: atorvastatin 40 mg Tablet PO (20:43)
[2021-09-29] MEDS: atenolol 50 mg Tablet 100 MG PO (20:43)
[2021-09-29] MEDS: tamsulosin 0.4 mg Capsule PO (20:43)
[2021-09-30] VITALS (14 sets, daily range): BP systolic 160–172; BP diastolic 75–87; PULSE 61–70; RESP 16–20; TEMP 36.3–37.1; O2SAT 94–99
[2021-09-30] MEDS: piperacillin-tazobactam 3.375 GM in sodium chloride 0.9% (plus) 50 ML IV ×3 (03:07→18:49)
[2021-09-30] MEDS: vancomycin 1,000 MG in sodium chloride 0.9% 250 ML 250 MG IV (04:59)
[2021-09-30 05:26] LABS: Basophils # 0.1 10^3/uL (0.0-0.1); Basophils % 0.6 %; Eosinophils # 0.4 10^3/uL (0.0-0.8); Eosinophils % 3.5 %; Hematocrit 31.9 % (42.0-52.0); Hemoglobin 10.6 g/dL (11.7-16.6); Lymphocytes # 1.5 10^3/uL (0.8-4.8); Lymphocytes % 15.3 %; Mean Corpuscular HGB Conc 33.2 g/dL (30.0-36.0); Mean Corpuscular Hemoglobin 30.5 pg (28.0-34.0); Mean Corpuscular Volume 91.9 fl (80-94); Mean Platelet Volume 9.8 fL (7.4-10.4); Monocytes # 0.8 10^3/uL (0.2-0.9); Monocytes % 7.6 %; Neutrophils # 7.28 10^3/uL (1.8-7.7); Neutrophils % 72.3 %; Nucleated Red Blood Cells % 0 %; Platelet Count 415 10^3/cmm (130-400); Red Blood Count 3.47 10^6/uL (4.1-5.3); Red Cell Distribution Width 12.7 % (12.1-15.1); White Blood Count 10.1 10^3/uL (4.0-10.0)
[2021-09-30 05:51] LABS: Anion Gap 15.6 (5-19); Blood Urea Nitrogen 8 mg/dL (6-20); Calcium 9.9 mg/dL (8.5-10.5); Carbon Dioxide 26 mmol/L (22-29); Chloride 99 mmol/L (98-107); Glomerular Filtration Rate 87.3 mL/min (90-130); Glucose 148 mg/dL (65-115); Osmolality Calculated 285 mOsm/kg (285-295); Potassium 3.6 mmol/L (3.5-5.1); Sodium 137 mmol/L (136-145)
[2021-09-30 06:21] LABS: Glucose Point of Care 154 mg/dL (70-110)
--- NOTE | 2021-09-30 07:10 | PM.PN ---
Subjective Subjective: Patient seen and examined this morning with at bedside. Patient states no issues overnight and slept well. Vital signs are stable and afebrile. Labs show white count continues to downtrend. He has been n.p.o. since midnight just in case. At this point patient may have a diet today and will plan for n.p.o. at midnight tonight with plan for surgery for right below the knee amputation tomorrow morning. Patient understands and agrees with current plan. All questions answered. We will reach out to prosthetists today for evaluation. Vitals/I&O/Wt Last Vital Signs Temp 98.3 F 09/30/21 04:00 Pulse 61 09/30/21 06:00 Resp 16 09/30/21 05:11 BP 169/82 09/30/21 04:00 Pulse Ox 97 09/30/21 04:00 O2 Del Method 09/29/21 08:00 09/29/21 09/30/21 09/30/21 22:59 06:59 14:59 Intake Total 540 / 1495 660 / 2155 Output Total 700 / 700 2300 / 3000 Balance -160 / 795 -1640 / -845 Physical Exam Narrative: Examination: Patient is resting comfortably at bedside. No acute respiratory distress. Examination of right lower extremity demonstrates dressing still intact further discoloration of black and purple necrotic changes to the fourth toe. No noticeable changes to the other toes of the right foot. No foul smell noted around dressing or drainage noted. Dressing left intact. No proximal tracking erythema or or bulla noted. Patient is able to wiggle toes. Continued decrease diffuse sensation to the right foot. Examination of the left lower extremity does show a weak pulse 1+ on posterior tib and DP. No wounds noted to the left foot. Data : 09/30/21 04:45 09/30/21 04:45 Micro: Microbiology 09/24/21 16:26 Blood Culture - Final Blood NO GROWTH AFTER 5 DAYS 09/24/21 16:20 Blood Culture - Final Blood NO GROWTH AFTER 5 DAYS 09/25/21 13:37 Anaerobic Culture - Preliminary Toe - #1 A&P Assessment and plan (1) Ischemic neuropathy of right foot: Status: Acute (2) Peripheral artery disease: Status: Acute (3) Diabetic peripheral neuropathy associated with type 2 diabetes mellitus: Status: Acute (4) Uncontrolled type 2 diabetes mellitus: Status: Acute Plan -Patient may have diet today -Patient to be n.p.o. at midnight -Labs reviewed this morning -Dressing change to the right lower extremity per podiatry -Hospitalist managing medical management as well as presurgical optimization -Would recommend a PT/INR and patient be typed and screened prior to surgery -Plan for OR tomorrow 10/01/2021 for right below the knee amputation. -Will reach out to prosthetists today for possible evaluation and establishment of care for prosthesis postoperatively. -There is any questions pertaining to patient's orthopedic care for free to contact myself through the pressing machine operator. Attestations Medical Necessity Statement*: Patient has ischemic foot to the right lower extremity. He is being medically optimized for a right below the knee amputation scheduled for tomorrow. He will be n.p.o. at midnight for planned surgery. Suspect he will likely need 2 days postoperatively from surgery for close postoperative monitoring. Coding Level of Care Code Acute Slasher Tender for [facility] Diagnoses Ischemic neuropathy of right foot G57.91 Peripheral artery disease I73.9 Diabetic peripheral neuropathy associated with type 2 diabetes mellitus E11.42 Uncontrolled type 2 diabetes mellitus E11.65 Time Spent (min) 25
--- NOTE | 2021-09-30 08:41 | P.PN_ITS ---
Subjective Subjective: Patient seen at bedside this morning. Resting comfortably. present. No constitutional symptoms. Patient remained stable overnight. Plan is for right BKA tomorrow 10/01/[address] Nielsen orthopedics. Vitals/I&O/Wt Last Vital Signs Temp 97.4 F L 09/30/21 07:45 Pulse 63 09/30/21 07:45 Resp 16 09/30/21 07:45 BP 172/80 09/30/21 07:45 Pulse Ox 94 09/30/21 07:45 O2 Del Method 09/30/21 07:45 09/29/21 09/30/21 09/30/21 22:59 06:59 14:59 Intake Total 540 / 1495 660 / 2155 50 / 50 Output Total 700 / 700 2300 / 3000 Balance -160 / 795 -1640 / -845 50 / 50 Physical Exam Narrative: GENERAL: A&O x 3 VASCULAR: DP/PT pulses nonpalpable with ischemic/necrotic changes to margins of right foot third toe amputation site. DERMATOLOGICAL: Right foot third digit amputation site margins purple in discoloration with ischemic changes on the dorsal aspect of the foot tracking to the midfoot. No active drainage or purulence. Third metatarsal head is e xposed. No underlying fluctuance or signs of deep space abscess. Ischemic discoloration changes extending proximally to encompass the entire midfoot and lateral foot to the level of the calcaneocuboid joint. Right foot fourth digit now discolored secondary to ischemia. Worsening. MUSCULOSKELETAL: Right foot third toe amputation NEUROLOGICAL: Neurological sensation to the affected foot and ankle is diminished Data : 09/30/21 04:45 09/30/21 04:45 Micro: Microbiology 09/24/21 16:26 Blood Culture - Final Blood NO GROWTH AFTER 5 DAYS 09/24/21 16:20 Blood Culture - Final Blood NO GROWTH AFTER 5 DAYS 09/25/21 13:37 Anaerobic Culture - Preliminary Toe - #1 A&P Assessment and plan (1) Peripheral artery disease: Status: Acute (2) Cellulitis of right foot: Status: Acute (3) Diabetic peripheral neuropathy associated with type 2 diabetes mellitus: Status: Acute (4) Soft tissue emphysema: Status: Acute Plan -No further surgical intervention by podiatry at this time. Patient is opting for a right below the knee amputation at this time -Right below the knee amputation tomorrow 10/01/[address] Nielsen, orthopedics -Wound cultures: MSSA -Discharge planning: Patient's stated that they are not candidates for home health through their insurance. If patient undergoes right below the knee amputation he will need home health. Unsure if below-knee amputation changes coverage. Please advise. -No further recommendations by podiatry at this time. Podiatry to sign off. Please reconsult if needed. Attestations Medical Necessity Statement*: See above Coding Level of Care Code Acute Turn Down Attendant for [facility] Fwd Diagnoses Peripheral artery disease I73.9 Cellulitis of right foot L03.115 Diabetic peripheral neuropathy associated with type 2 diabetes mellitus E11.42 Soft tissue emphysema T79.7XXA
[2021-09-30] MEDS: insulin lispro 100 unit/1 mL SUBCUT ×4 (08:59→21:45)
[2021-09-30] MEDS: pantoprazole DR 40 mg Tablet 20 MG PO (09:00)
[2021-09-30] MEDS: clopidogrel 75 mg Tablet PO (09:00)
[2021-09-30] MEDS: aspirin 325 mg EC Tablet PO (09:00)
[2021-09-30] MEDS: gabapentin 400 mg Capsule PO ×2 (09:00→17:54)
[2021-09-30] MEDS: fluoxetine 20 mg Capsule PO (09:00)
--- NOTE | 2021-09-30 10:55 | PM.PN ---
Subjective Subjective: No acute overnight events. Patient remains afebrile. White blood cell count is stable at 10. He is planned for BKA tomorrow. Blood pressure is uncontrolled with systolic ranging between 1 67-1 82. Review of home medication shows that amlodipine and lisinopril has been on hold since admission we will resume this today. Medications: Reviewed: Yes Vitals/I&O/Wt Last Vital Signs Temp 97.4 F L 09/30/21 07:45 Pulse 63 09/30/21 07:45 Resp 17 09/30/21 09:44 BP 172/80 09/30/21 07:45 Pulse Ox 94 09/30/21 07:45 O2 Del Method 09/30/21 07:45 09/29/21 09/30/21 09/30/21 22:59 06:59 14:59 Intake Total 540 / 1495 660 / 2155 530 / 530 Output Total 700 / 700 2300 / 3000 Balance -160 / 795 -1640 / -845 530 / 530 Physical Exam Narrative: General: No acute distress, AO x3 HEENT: PERRLA, pupils bilaterally equal and reactive, pallors not present Chest: Normal vesicular breath sounds, no added sounds, equal good air entry bilaterally CVS: S1-S2 regular, no murmurs, no tachycardia, no gallops, no rubs Abdomen: Soft, nontender, no organomegaly, bowel sounds present Data : 09/30/21 04:45 09/30/21 04:45 Micro: Microbiology 09/24/21 16:26 Blood Culture - Final Blood NO GROWTH AFTER 5 DAYS 09/24/21 16:20 Blood Culture - Final Blood NO GROWTH AFTER 5 DAYS 09/25/21 13:37 Anaerobic Culture - Preliminary Toe - #1 Gram Stain Final 09/25/21-1752 Result FEW WHITE BLOOD CELLS FEW GRAM POSITIVE COCCI IN PAIRS Wound Culture Final 09/27/21-1500 Organism 1 Staphylococcus aureus Growth HEAVY DAY 2 S aureus M.I.C. RX --------- ------ * Amoxicillin/Clavulanate <=4/2 S * Ampicillin <=2 R * Ampicillin/Sulbactam <=8/4 S * Ceftriaxone <=8 S * Ciprofloxacin >2 R * Clindamycin >4 R * Erythromycin >4 R * Gentamicin <=4 S * Levofloxacin >4 R * Linezolid 4 S * Oxacillin 0.5 S * Penicillin <=0.03 R * Rifampin <=1 S * Tetracycline <=4 S * Trimethoprim/Sulfamethoxazole <=0.5/9.5 S Vancomycin 2 S Daptomycin 1 S Wound Culture Preliminary (changed) 09/26/21-1105 Organism 1 Staphylococcus species Growth HEAVY DAY 1, RESULTS TO FOLLOW A&P Assessment and plan (1) Puncture wound of foot, right, complicated: Status: Acute (2) Cellulitis of right foot: Status: Acute (3) Soft tissue emphysema: Status: Acute (4) Diabetic peripheral neuropathy associated with type 2 diabetes mellitus: Status: Acute (5) GARETH (acute kidney injury): Resolved Renal ultrasound unremarkable. Status: Acute Plan Patient admitted with gas gangrene of the right foot Underwent debridement in OR 09/25 with podiatry, with noted deep infection, and required amputation of the third digit. Continues to have worsening with noted gangrenous changes. He is planned for BKA tomorrow N.p.o. postmidnight for the procedure OR cultures have revealed MSSA. Abx history: clindamycin and ciprofloxacin , vancomycin (09/24-09/29) ----> piperacillin tazobactam 09/29. Discontinue vancomycin today as all over cultures are with MSSA only. No evidence of MRSA or other resistant organisms. Hold Plavix today. History of peripheral artery disease with chronic total occlusion on the right side. Currently patient is on aspirin 325 mg p.o. daily and Plavix 75 mg daily. Reduce the dose of aspirin to 81 mg p.o. daily. Continue Plavix additionally. We will hold Plavix today in anticipation of surgery tomorrow. This may be resumed on postop day 1. Discussed with surgical team. Uncontrolled hypertension: Resume home dose of amlodipine 10 mg. Additionally lisinopril had been on hold due to GARETH upon admission. Change this to 20 mg daily and resume at this point his creatinine is improved to 0.8. Diabetes with peripheral neuropathy, continue lantus 22 units BID and sliding scale History of CVA with residual aphasia Hyperparathyroidism Attestations Medical Necessity Statement*: Planned BKA tomorrow Coding Level of Care Code Acute Ship Painter Helper for [facility] Diagnoses Puncture wound of foot, right, complicated S91.331A Cellulitis of right foot L03.115 Soft tissue emphysema T79.7XXA Diabetic peripheral neuropathy associated with type 2 diabetes mellitus E11.42 GARETH (acute kidney injury) N17.9
[2021-09-30 11:18] LABS: Glucose Point of Care 250 mg/dL (70-110)
[2021-09-30] MEDS: amlodipine 10 mg Tablet PO (11:52)
[2021-09-30 17:06] LABS: Glucose Point of Care 394 mg/dL (70-110)
[2021-09-30] MEDS: HYDROmorphone 1 mg/mL INJ 1 mL IVP (17:53)
--- NOTE | 2021-09-30 19:53 | XRR_ITS ---
PROCEDURE INFORMATION: Exam: XR Right Tibia and Fibula Exam date and time: 09/30/2021 8:01 PM Age: 55 years old Clinical indication: Pain; Foot; Right; Additional info: Preop planning for below the knee amputation TECHNIQUE: Imaging protocol: Radiologic exam of the Right tibia and fibula. Views: 2 views. COMPARISON: No relevant prior studies available. FINDINGS: Bones/joints: Small intra-articular calcified bodies measuring up to 10 mm in the knee joint. No acute fracture dislocation or suspicious bony lesions. Soft tissues: Normal. Other findings: Four nonweightbearing views submitted. XR/XR tibia fibula RT 2V [id number] IMPRESSION: No acute findings.
[2021-09-30 20:40] LABS: Glucose Point of Care 341 mg/dL (70-110)
[2021-09-30] MEDS: atenolol 50 mg Tablet 100 MG PO (21:43)
[2021-09-30] MEDS: tamsulosin 0.4 mg Capsule PO (21:44)
[2021-09-30] MEDS: atorvastatin 40 mg Tablet PO (21:44)
[2021-10-01] VITALS (24 sets, daily range): BP systolic 118–207; BP diastolic 60–96; PULSE 53–68; RESP 16–26; TEMP 36.1–37.1; O2SAT 92–100
[2021-10-01] MEDS: piperacillin-tazobactam 3.375 GM in sodium chloride 0.9% (plus) 50 ML IV ×3 (03:09→18:23)
[2021-10-01 05:06] LABS: Basophils # 0.1 10^3/uL (0.0-0.1); Basophils % 0.6 %; Eosinophils # 0.3 10^3/uL (0.0-0.8); Eosinophils % 3.4 %; Hematocrit 33.3 % (42.0-52.0); Hemoglobin 10.9 g/dL (11.7-16.6); Lymphocytes # 1.4 10^3/uL (0.8-4.8); Lymphocytes % 14.6 %; Mean Corpuscular HGB Conc 32.7 g/dL (30.0-36.0); Mean Corpuscular Hemoglobin 30.2 pg (28.0-34.0); Mean Corpuscular Volume 92.2 fl (80-94); Mean Platelet Volume 9.3 fL (7.4-10.4); Monocytes # 0.8 10^3/uL (0.2-0.9); Monocytes % 8.5 %; Neutrophils # 6.93 10^3/uL (1.8-7.7); Neutrophils % 72.1 %; Nucleated Red Blood Cells % 0 %; Platelet Count 469 10^3/cmm (130-400); Red Blood Count 3.61 10^6/uL (4.1-5.3); Red Cell Distribution Width 12.7 % (12.1-15.1); White Blood Count 9.6 10^3/uL (4.0-10.0)
[2021-10-01 05:28] LABS: Anion Gap 14.7 (5-19); Blood Urea Nitrogen 9 mg/dL (6-20); Calcium 10.4 mg/dL (8.5-10.5); Carbon Dioxide 26 mmol/L (22-29); Chloride 97 mmol/L (98-107); Glomerular Filtration Rate 87.3 mL/min (90-130); Glucose 210 mg/dL (65-115); Osmolality Calculated 283 mOsm/kg (285-295); Potassium 3.7 mmol/L (3.5-5.1); Sodium 134 mmol/L (136-145)
[2021-10-01 06:23] LABS: Glucose Point of Care 216 mg/dL (70-110)
--- NOTE | 2021-10-01 08:14 | PC.NURSE ---
phoned surgery for clarification of am med administration. Hold insulin, asa, and lisinopril.
[2021-10-01] MEDS: pantoprazole DR 40 mg Tablet 20 MG PO (08:19)
[2021-10-01] MEDS: gabapentin 400 mg Capsule PO ×2 (08:19→16:58)
[2021-10-01] MEDS: amlodipine 10 mg Tablet PO (08:19)
[2021-10-01] MEDS: fluoxetine 20 mg Capsule PO (08:20)
[2021-10-01] MEDS: acetaminophen 325 mg Tablet 650 MG PO ×2 (08:21→19:52)
--- NOTE | 2021-10-01 09:28 | PC.SOCIAL ---
IMM Update Pg 2 of IMM Updated and reviewed w/ patient and his . Copy provided and Copy in chart dated and initialed.
[2021-10-01 11:50] LABS: INR 1.05 (0.8-1.2)
--- NOTE | 2021-10-01 11:56 | PM.PN ---
Subjective Subjective: Patient seen and examined this morning. No acute changes overnight. N.p.o. since midnight. Plan for OR today for right below the knee amputation. Vitals/I&O/Wt Last Vital Signs Temp 96.9 F L 10/01/21 10:51 Pulse 57 L 10/01/21 10:51 Resp 16 10/01/21 10:51 BP 149/77 10/01/21 10:51 Pulse Ox 95 10/01/21 10:51 O2 Del Method 10/01/21 10:51 09/30/21 10/01/21 10/01/21 22:59 06:59 14:59 Intake Total 460 / 1470 50 / 50 Output Total 350 / 350 900 / 1250 Balance 110 / 1120 -900 / 220 50 / 50 Physical Exam Narrative: Examination right lower extremity shows necrosis of the fourth toe. No foul smell of dressing. Dressing clean dry and intact. Warm well perfused right lower extremity at the level of the tibia. Patient able to wiggle toes. Decreased sensation diffusely throughout the right foot. Data : 10/01/21 04:44 10/01/21 04:44 Micro: Microbiology 09/25/21 13:37 Anaerobic Culture - Preliminary Toe - #1 A&P Assessment and plan (1) Ischemic neuropathy of right foot: Status: Acute (2) Peripheral artery disease: Status: Acute (3) Diabetic peripheral neuropathy associated with type 2 diabetes mellitus: Status: Acute Plan - N.p.o. since midnight -Pain control -Medical management and preoperative optimization -Nonweightbearing to the right lower extremity -Plan for or today for right below the knee amputation -Consent obtained -New antibiotics -return to the floor after surgery Attestations Medical Necessity Statement*: Patient to have right below the knee amputation today. Will likely need postoperative monitoring and dressing changes for at least 2 midnights. Coding Level of Care Code Acute Contract Manager for Jennifer Mcleod Diagnoses Ischemic neuropathy of right foot G57.91 Peripheral artery disease I73.9 Diabetic peripheral neuropathy associated with type 2 diabetes mellitus E11.42
--- NOTE | 2021-10-01 11:57 | P.ANESASSM_ITS ---
Pre-Anesthetic Assessment Height/Weight: Height 1.91 m Weight 100.811 kg Temp Pulse Resp BP Pulse Ox O2 Del Method 96.9 F L 57 L 16 149/77 95 10/01/21 10:51 10/01/21 10:51 10/01/21 10:51 10/01/21 10:51 10/01/21 10:51 10/01/21 10:51 Preop Diagnosis: Right lower extremity PVD & DM complicated right foot ischemia Operation Date: 09/25/21 12:50 Proposed Procedures p Incision And Drainage Right Foot(Right) - Ye Pruett DPM s poss Amputation 3 Toe(Right) - Ye Pruett DPM Operation Date: 09/26/21 15:00 Proposed Procedures p Peripheral Diagnostic(Not Applicable) - Que Gomes M.D Operation Date: 10/01/21 10:25 Proposed Procedures p Below Knee Amputation(Right) - Ed Nielsen DO Familial anesthetic complications: none Was Beta Aruna taken within 24 hours: Yes Was Clonidine taken within 24 hours: N/A Last intake: Intake Last Liquid Date 10/01/21 Last Liquid Time 00:05 Last Solid Date 09/30/21 Last Solid Time 17:30 Social Tobacco and No alcohol Exam alert, oriented x 3 and regular rate & rhythm Airway Submandibular: within normal limits Cervical ROM: within normal limits Mallampati: Class II Dentition: false Pulmonary Chronic Obstructive Pulmonary Disease CV/HEM Hypertension and Peripheral Vascular Disease Chronic Renal Insufficiency GI Gastroesophageal Reflux Disease Metabolic Diabetes Mellitus, Hyperlipidemia and Morbid Obesity Neuropsych Neuropathy Anesthetic Plan ASA status: 3 Anesthesia: Regional (specify below) (SAB to GA/LMA) Medications/Allergies Home Medications Medication Instructions Recorded Confirmed Last Taken Type amlodipine 10 mg tablet 10 mg PO BEDTIME 12/07/19 09/24/21 09/23/21 History atorvastatin 40 mg tablet 40 mg PO BEDTIME 12/07/19 09/24/21 09/23/21 History baclofen 10 mg tablet 10 mg PO BID PRN Pain 12/07/19 09/24/21 09/24/21 History cholecalciferol (vitamin D3) 50 50 mcg PO DAILY 12/07/19 09/24/21 09/24/21 History mcg (2,000 unit) capsule clopidogrel 75 mg tablet 75 mg PO DAILY 12/07/19 09/24/21 09/24/21 History fluoxetine 20 mg tablet 20 mg PO DAILY 12/07/19 09/24/21 09/24/21 History lisinopril 40 mg tablet 40 mg PO DAILY 12/07/19 09/24/21 09/24/21 History pantoprazole 20 mg tablet,delayed 20 mg PO DAILY 12/07/19 09/24/21 09/24/21 History release tamsulosin 0.4 mg capsule 0.4 mg PO BEDTIME 12/07/19 09/24/21 09/23/21 History metformin 1,000 mg tablet 1,000 mg PO BID #180 tabs 12/08/19 09/24/21 09/24/21 Rx atenolol 100 mg tablet 100 mg PO BEDTIME 08/20/20 09/24/21 09/23/21 History aspirin 81 mg tablet,delayed 325 mg PO DAILY 10/01/20 09/24/21 09/24/21 History release blood-glucose meter,continuous #1 ea 07/17/21 09/24/21 Unknown Rx (Dexcom G6 Neurosurgeon) blood-glucose sensor (Dexcom G6 #3 ea 07/17/21 09/24/21 Unknown Rx Sensor) blood-glucose transmitter (Dexcom #1 ea 07/17/21 09/24/21 Unknown Rx G6 Transmitter) flash glucose scanning reader #1 ea 07/30/21 09/24/21 Unknown Rx (FreeStyle April 2 [place]) flash glucose sensor (FreeStyle #6 ea 07/30/21 09/24/21 Unknown Rx April 2 Sensor) hydroxyzine HCl 25 mg tablet 25 mg PO BID PRN Anxiety 08/17/21 09/24/21 Unknown History ciprofloxacin HCl 500 mg tablet 500 mg PO BID 09/24/21 09/24/21 09/24/21 History gabapentin 400 mg capsule 400 mg PO BID 09/24/21 09/24/21 09/24/21 History hydralazine 10 mg tablet 10 mg PO Q6H PRN Blood Pressure 09/24/21 09/24/21 09/24/21 History hydrochlorothiazide 25 mg tablet 25 mg PO DAILY 09/24/21 09/24/21 09/24/21 History insulin detemir U-100 100 unit/mL 44 unit SUBCUT BID 09/24/21 09/24/21 09/24/21 History (3 mL) subcutaneous pen (Levemir FlexTouch U-100 Insulin) insulin lispro 100 unit/mL See Rx Instructions .Route .COMPLEX 09/24/21 09/24/21 09/24/21 History subcutaneous pen (Humalog KwikPen (U-100) Insulin) Allergies Allergy/AdvReac Type Severity Reaction Status Date / Time No Known Allergies Allergy Verified 09/24/21 14:27 Current Medications Generic Name Dose Route Start Last Admin Trade Name Freq PRN Reason Stop Dose Admin Acetaminophen 650 mg 09/24/21 20:09 10/01/21 08:21 Acetaminophen 325 Mg Tablet PO 650 mg Q6H PRN Administration Mild/Mod Pain Or Temp >/= 101 Amlodipine Besylate 10 mg 09/30/21 11:00 10/01/21 08:19 Amlodipine 10 Mg Tablet PO 10 mg DAILY ABBEY Administration Aspirin 81 mg 10/01/21 09:00 10/01/21 08:17 Aspirin 81 Mg Ec Tablet PO Not Given DAILY ABBEY Atenolol 100 mg 09/24/21 21:00 09/30/21 21:43 Atenolol 50 Mg Tablet PO 100 mg BEDTIME ABBEY Administration Atorvastatin Calcium 40 mg 09/24/21 21:00 09/30/21 21:44 Atorvastatin 40 Mg Tablet PO 40 mg BEDTIME ABBEY Administration Baclofen 10 mg 09/24/21 20:09 09/27/21 08:23 Baclofen 10 Mg Tablet PO 10 mg BID PRN Administration Pain Clopidogrel Bisulfate 75 mg 09/25/21 09:00 09/30/21 09:00 Clopidogrel 75 Mg Tablet PO 75 mg DAILY ABBEY Administration Fluoxetine HCl 20 mg 09/25/21 09:00 10/01/21 08:20 Fluoxetine 20 Mg Capsule PO 20 mg DAILY ABBEY Administration Gabapentin 400 mg 09/25/21 09:00 10/01/21 08:19 Gabapentin 400 Mg Capsule PO 400 mg BID ABBEY Administration Hydralazine HCl 10 mg 09/24/21 20:09 09/27/21 13:26 Hydralazine 10 Mg Tablet PO 10 mg Q6H PRN Administration Blood Pressure Hydromorphone HCl 1 mg 09/25/21 09:09 09/30/21 17:53 Hydromorphone 1 Mg/Ml Inj 1 Ml IVP 1 mg Q4H PRN Administration SEVERE PAIN Hydromorphone HCl 2 mg 09/26/21 20:11 10/01/21 10:22 Hydromorphone 4 Mg Tablet PO 2 mg Q4H PRN Administration SEVERE PAIN Piperacillin Sod/Tazobactam 50 mls @ 12.5 mls/hr 09/29/21 11:00 10/01/21 10:23 Sod 3.375 gm/ Sodium Chloride IV 12.5 mls/hr Q8H ABBEY Administration Protocol As Directed Insulin Detemir 22 unit 09/25/21 09:00 10/01/21 08:17 Insulin Detemir 100 Units/1 Ml SUBCUT Not Given BID ABBEY Insulin Human Lispro 0 unit 09/24/21 21:00 10/01/21 08:17 Insulin Lispro 100 Unit/1 Ml SUBCUT Not Given WM&BEDTIME ABBEY Protocol Lisinopril 20 mg 10/01/21 09:00 10/01/21 08:20 Lisinopril 20 Mg Tablet PO Not Given DAILY ABBEY Ondansetron HCl 4 mg 09/24/21 20:09 09/25/21 09:31 Ondansetron 2 Mg/Ml Sdv 2 Ml IVP 4 mg Q8H PRN Administration vomiting, or N/V if npo Pantoprazole Sodium 20 mg 09/25/21 09:00 10/01/21 08:[address] 40 Mg Tablet PO 20 mg DAILY ABBEY Administration Tamsulosin HCl 0.4 mg 09/24/21 21:00 09/30/21 21:44 Tamsulosin 0.4 Mg Capsule PO 0.4 mg BEDTIME ABBEY Administration [facility] Anesthesia Medical History (Updated 09/29/21 @ 18:32 by Ed Nielsen DO) Diabetes Diabetic neuropathy Diaphragmatic hernia without mention of obstruction or gangrene Hyperparathyroidism Hypertension Ischemic neuropathy of right foot Peripheral Vascular Disease Stricture and stenosis of esophagus Stroke Surgical History History of hip surgery Family History Father Diabetes Mother Diabetes Brother Cancer colon Social History Smoking and tobacco status: current every day smoker Alcohol intake: never Substance/Drug Use: former Date of last use: months ago Other details last substance use: Smoked methamphetmaine in the past. Denies ever injection use. Marital status: Data Anesthesia : 10/01/21 04:44 10/01/21 04:44 Short CBC 09/30/21 10/01/21 Range/Units 04:45 04:44 WBC 10.1 H 9.6 (4.0-10.0) 10^3/uL Hgb 10.6 L 10.9 L (11.7-16.6) g/dL Hct 31.9 L 33.3 L (42.0-52.0) % MCV 91.9 92.2 (80-94) fl Plt Count 415 H 469 H (130-400) 10^3/cmm Neut % (Auto) 72.3 72.1 % Neut # (Auto) 7.28 6.93 (1.8-7.7) 10^3/uL BMP 09/30/21 10/01/21 04:45 04:44 Sodium 137 134 L Potassium 3.6 3.7 Chloride 99 97 L Carbon Dioxide 26 26 BUN 8 9 Creatinine 0.9 0.9 Glucose 148 H 210 H Calcium 9.9 10.4 Coags 10/01/21 11:18 PT 14.00 INR 1.05 Microbiology 09/25/21 13:37 Anaerobic Culture - Preliminary Toe - #1 Cardiac Studies: No Data to Display
--- NOTE | 2021-10-01 12:00 | W.PM.OPSUD ---
Surgery/Procedure H&P Update DATE OF PROCEDURE: October 01, 2021 DATE H&P PERFORMED: 09/29/21 CHANGES TO PREVIOUS DOCUMENTATION: None PREOP DIAGNOSIS: Right lower extremity PVD & DM complicated right foot ischemia PRIMARY INDICATION FOR PROCEDURE: Right lower extremity peripheral vascular disease with ischemic changes to the foot with infection PLANNED PROCEDURE: Operation Date: 09/25/21 12:50 Proposed Procedures p Incision And Drainage Right Foot(Right) - Ye Pruett DPM s poss Amputation 3 Toe(Right) - Ye Pruett DPM Operation Date: 09/26/21 15:00 Proposed Procedures p Peripheral Diagnostic(Not Applicable) - Que Gomes M.D Operation Date: 10/01/21 10:25 Proposed Procedures p Below Knee Amputation(Right) - Ed Nielsen DO
--- NOTE | 2021-10-01 12:02 | W.PM.OPSUD ---
Surgery/Procedure H&P Update DATE OF PROCEDURE: October 01, 2021 DATE H&P PERFORMED: 09/29/21 CHANGES TO PREVIOUS DOCUMENTATION: None PREOP DIAGNOSIS: Right lower extremity PVD & DM complicated right foot ischemia PLANNED PROCEDURE: Operation Date: 09/25/21 12:50 Proposed Procedures p Incision And Drainage Right Foot(Right) - Ye Pruett DPM s poss Amputation 3 Toe(Right) - Ye Pruett DPM Operation Date: 09/26/21 15:00 Proposed Procedures p Peripheral Diagnostic(Not Applicable) - Que Gomes M.D Operation Date: 10/01/21 10:25 Proposed Procedures p Below Knee Amputation(Right) - Ed Nielsen DO
--- NOTE | 2021-10-01 12:24 | P.PN_ITS ---
Subjective Subjective: Okay patient plan for OR today for BKA Medications: Reviewed: Yes Vitals/I&O/Wt Last Vital Signs Temp 96.9 F L 10/01/21 10:51 Pulse 57 L 10/01/21 10:51 Resp 16 10/01/21 10:51 BP 149/77 10/01/21 10:51 Pulse Ox 95 10/01/21 10:51 O2 Del Method 10/01/21 10:51 09/30/21 10/01/21 10/01/21 22:59 06:59 14:59 Intake Total 460 / 1470 50 / 50 Output Total 350 / 350 900 / 1250 Balance 110 / 1120 -900 / 220 50 / 50 Physical Exam Narrative: General: No acute distress, AO x3 HEENT: PERRLA, pupils bilaterally equal and reactive, pallors not present Chest: Normal vesicular breath sounds, no added sounds, equal good air entry bilaterally CVS: S1-S2 regular, no murmurs, no tachycardia, no gallops, no rubs Abdomen: Soft, nontender, no organomegaly, bowel sounds present Data : 10/01/21 04:44 10/01/21 04:44 Micro: Microbiology 09/25/21 13:37 Anaerobic Culture - Preliminary Toe - #1 A&P Assessment and plan (1) Puncture wound of foot, right, complicated: Status: Acute (2) Cellulitis of right foot: Status: Acute (3) Soft tissue emphysema: Status: Acute (4) Diabetic peripheral neuropathy associated with type 2 diabetes mellitus: Status: Acute (5) GARETH (acute kidney injury): Resolved Renal ultrasound unremarkable. Status: Acute Plan Patient admitted with gas gangrene of the right foot Underwent debridement in OR 09/25 with podiatry, with noted deep infection, and required amputation of the third digit. Continues to have worsening with noted gangrenous changes. He is planned for BKA today N.p.o. postmidnight for the procedure OR cultures have revealed MSSA. Abx history: clindamycin and ciprofloxacin , vancomycin (09/24-09/29) ----> piperacillin tazobactam 09/29. Discontinue vancomycin today as all over cultures are with MSSA only. No evidence of MRSA or other resistant organisms. Resume Plavix postop day 1 History of peripheral artery disease with chronic total occlusion on the right side. Currently patient is on aspirin 325 mg p.o. daily and Plavix 75 mg daily. Reduce the dose of aspirin to 81 mg p.o. daily. Continue Plavix additionally. We will hold Plavix today in anticipation of surgery tomorrow. This may be resumed on postop day 1. Discussed with surgical team. Uncontrolled hypertension: Resume home dose of amlodipine 10 mg. Additionally lisinopril had been on hold due to GARETH upon admission. Change this to 20 mg daily and resume at this point his creatinine is improved to 0.8. Diabetes with peripheral neuropathy, continue lantus 22 units BID and sliding scale History of CVA with residual aphasia Hyperparathyroidism Attestations Medical Necessity Statement*: Patient for BKA today. Coding Level of Care Code Acute Rotor Coil Taper for Jennifer Mcleod Diagnoses Puncture wound of foot, right, complicated S91.331A Cellulitis of right foot L03.115 Soft tissue emphysema T79.7XXA Diabetic peripheral neuropathy associated with type 2 diabetes mellitus E11.42 GARETH (acute kidney injury) N17.9
[2021-10-01] MEDS: vancomycin 1,000 MG SDV 1000 MG XX (13:14)
--- NOTE | 2021-10-01 13:41 | P.OP_ITS ---
Brief Operative Note Date of procedure: 10/01/21 Procedure Done: Right below the knee amputation Estimated blood loss (mL): 100 Complications: None Post-op Plan: Patient to return to PACU stable condition. Plan to return to the floor. Patient will continue with antibiotics. Nonweightbearing right lower extremity. Dressing on in place until postop day 2. Coding Level of Care Code Acute Production Control Technologist for Jennifer Mcleod
--- NOTE | 2021-10-01 13:43 | P.OP_ITS ---
Operative Report Date of procedure: October 01, 2021 Pre-op diagnosis: Preop Diagnosis Right lower extremity PVD & DM complicated right foot ischemia 1. Gas gangrene right foot third toe 2. Abscess right foot Post-op diagnosis: Same Post-op findings: See operative note Procedure done: Right below the knee amputation Implants: None Specimens removed/disposition: Ischemic right foot with infection Surgeon: Ed Nielsen DO Estimated blood loss (mL): 100 Estimated blood loss: 100 cc 30 minutes IV fluids: See anesthesia record Urine output: Per anesthesia Complications: None Findings: See op note Brief History: Patient was seen and evaluated by myself in the inpatient setting after patient had debridements and appropriate vascular work-up and ultimately after failed debridement and toe amputation with development of further right foot necrosis as well as infection and angiogram showing patient would heal below the knee amputation discussion was made with patient and with the hospital staff as well as podiatry that a below the knee amputation would be in the patient's best interest. At that point time orthopedics was consulted for evaluation and performing a right below the knee amputation. Review of patient's medical history as well as speaking with patient and as well as imaging review patient has diabetes mellitus this with peripheral neuropathy with complex peripheral vascular disease to the bilateral lower extremities and subsequently had a complication of this once he stepped on a staple and did not know this is persisted with an infection which caused patient during his hospitalization he underwent debridement and toe amputation and had subsequent ischemia develop. Given his poor vascularity concern was that there just would be multiple wound debridements to his right foot ultimately leading to where he would potentially heal a below the knee amputation which was confirmed on an angiogram right lower extremity. At this point time had detailed discussion with patient about his treatment options as far as nonoperative and operative intervention. Ultimately my recommendation agrees with his primary team and podiatry that a right below the knee amputation might be his quickest way to recovery and hopefully eliminate multiple serial debridements and hopefully get him with a prosthesis and walking sooner. I did outline the risk benefits complications and alternatives to surgery. Risks with surgery include but are not limited to make it better or make it worse, blood clot heart attack stroke on the table, wound dehiscence wound infection. Ultimately with this understanding they understand their treatment options and elected proceed with surgical intervention. Procedure: The patient was identified in the preoperative holding area. ?The operative site was clearly marked and identified, and informed consent was obtained. ?Patient did participate in identifying the operative site. ?Patient was transferred to the operating table and positioned in supine position, where adequate anesthesia was administered per the Anesthesia Department. ?A nonsterile tourniquet was placed high on the operative lower extremity. The operative lower extremity was then positioned, prepped and draped in the usual sterile orthopedic fashion.? The distal most aspect of the lower extremity was secured in a sterile stockinette with sterile Coban. ? After several minutes of elevation, the tourniquet was inflated. ?We delineated our topographical anatomy, marking out our tibial resection at approximately 13 cm distal to the medial joint line. ?The skin flaps were elucidated with a surgical marker using a 1/3rd anterior-posterior 2/3rd flap. The skin was then incised with a 10-blade scalpel and then Bovie electrocautery was used to dissect the subcutaneous tissue as we delineated the anterior margins of the tibia and fibula. ?Anterolateral soft tissue envelope was clearly evaluated. ?Again, the muscle demonstrated good contractility and good color. ?I delineated our peroneal neurovascular bundle and ligated it with 0 silk tie doubled up. ?Once I delineated the anterior cortices of the tibia and fibula, soft tissues were protected with soft tissue retraction and a sagittal saw was used to transect the tibia at approximately 13 cm distal to the joint line and then the fibula just proximal to that obliquely. At this point it was noted patient had no signs of infection proximally. Muscle was healthy bleeding and reactive to electrocautery. No purulence or necrosis noted. As result no cultures were taken of the amputation site. Next I then used the amputation knife was taken along the posterior cortex of the tibia and the fibula, transecting the soft tissues distally, leaving a nice long posterior flap. ? The specimen was then marked right foot and ankle and sent for permanent pathology and disposal. ? We did debulk the posterior flap just a bit, found the remainder of the neurovascular bundles. ?Again, we even identified the sural nerve posteriorly and the tibial nerve. ?These were injected with 0.5% bupivacaine plain and then placed under traction and transected with 15-blade scalpel prior to allowing them to retract well into the residual stump. ?Again, the additional bundles were ligated with Vicryl knot doubled up. ?We irrigated with copious amounts of normal saline and then deflated the tourniquet to verify adequate hemostasis and good capillary refill distally. ?Again, all of the bundles were ligated appropriately. ?We had excellent hemostasis. ?I then facilitated the primary myodesis anterior to posterior with running #1 strata fix to prevent multiple knots. Then utilized a 2 and 3 oh strata fix for appropriate wound closure without numerous knots and under no tension. Skin was then closed with clara. A sterile dressing was applied with Xeroform, 4x4s, ABD, soft roll, and an Jass wrap. ?The patient was transferred to Recovery in stable condition. ? Disposition: Patient taken back in stable condition. He will be returned to the [facility] floor. Patient may continue postoperative antibiotics for 24 hours and at that point may discontinue from an orthopedic standpoint however will defer to primary team for final antibiotic discontinuation. Patient should be nonweightbearing right below the knee potation stump. Dressing left in place u ntil postop day 2 and will be changed by myself. Patient should receive appropriate DVT prophylaxis. IBETH O [facility] was contacted and they have seen and evaluated patient to establish care. Plan will hopefully be patient may discharge in a couple days with appropriate discharge instruction as well as DVT prophylaxis and postoperative pain medication. We will see him in the office in 2 weeks.
--- NOTE | 2021-10-01 13:45 | PM.PACU ---
PACU note Narrative: Patient seen and examined in PACU. Patient stable. Patient tolerated procedure without complications. Patient has spinal anesthesia still in effect. Dressing to the right BKA stump is clean dry and intact. Patient's pain controlled. Patient will return to the floor. Exam: awake (Comfortable and spinal anesthesia still in effect) and other (Dressing to the right BKA stump clean dry and intact. Unable to assess motor and sensory secondary to spinal anesthesia.) Disposition: back to floor
--- NOTE | 2021-10-01 13:56 | SUR.PHASEI ---
Blood glucose check 213. Reported to Dr Valdes. No orders at this time.
[2021-10-01 14:00] LABS: Glucose Point of Care 213 mg/dL (70-110)
[2021-10-01 16:57] LABS: Glucose Point of Care 199 mg/dL (70-110)
[2021-10-01] MEDS: HYDROmorphone 1 mg/mL INJ 1 mL IVP ×2 (17:44→21:41)
[2021-10-01] MEDS: insulin lispro 100 unit/1 mL SUBCUT ×2 (18:23→21:41)
[2021-10-01] MEDS: baclofen 10 mg Tablet PO (18:32)
[2021-10-01] MEDS: hyDROXYzine 25 mg Capsule PO (19:51)
[2021-10-01] MEDS: atenolol 50 mg Tablet 100 MG PO (19:59)
[2021-10-01] MEDS: atorvastatin 40 mg Tablet PO (20:00)
[2021-10-01] MEDS: tamsulosin 0.4 mg Capsule PO (20:00)
[2021-10-01 21:05] LABS: Glucose Point of Care 293 mg/dL (70-110)
[2021-10-02] VITALS (12 sets, daily range): BP systolic 166–196; BP diastolic 81–93; PULSE 59–72; RESP 15–24; TEMP 36.3–36.6; O2SAT 95–99
[2021-10-02] MEDS: HYDROmorphone 1 mg/mL INJ 1 mL IVP ×3 (01:25→10:23)
[2021-10-02] MEDS: enoxaparin 30 mg/0.3 mL Syringe SUBCUT (01:28)
[2021-10-02] MEDS: piperacillin-tazobactam 3.375 GM in sodium chloride 0.9% (plus) 50 ML IV ×3 (02:46→18:28)
[2021-10-02] MEDS: acetaminophen 325 mg Tablet 650 MG PO (04:47)
[2021-10-02] MEDS: baclofen 10 mg Tablet PO (04:47)
[2021-10-02 06:19] LABS: Glucose Point of Care 204 mg/dL (70-110)
[2021-10-02] MEDS: acetaminophen 1,000 MG/100 ML PIGGYBACK 400 MG IV ×3 (07:55→20:03)
[2021-10-02] MEDS: ketorolac 30 mg/mL INJ 15 MG IVP ×3 (07:56→23:59)
[2021-10-02] MEDS: insulin lispro 100 unit/1 mL SUBCUT ×4 (07:57→20:30)
[2021-10-02] MEDS: aspirin 81 mg EC Tablet PO (09:28)
[2021-10-02] MEDS: gabapentin 400 mg Capsule PO ×2 (09:28→18:29)
[2021-10-02] MEDS: hyDROXYzine 25 mg Capsule PO ×2 (09:28→23:59)
[2021-10-02] MEDS: lisinopril 20 mg Tablet PO (09:28)
[2021-10-02] MEDS: pantoprazole DR 40 mg Tablet 20 MG PO (09:28)
[2021-10-02] MEDS: clopidogrel 75 mg Tablet PO (09:28)
[2021-10-02] MEDS: fluoxetine 20 mg Capsule PO (09:28)
[2021-10-02] MEDS: amlodipine 10 mg Tablet PO (09:29)
[2021-10-02] MEDS: fentaNYL 25 mcg Patch 1 PATCH TRANSDERMA (10:21)
--- NOTE | 2021-10-02 11:21 | PM.PN ---
Subjective Subjective: Patient complaining of uncontrolled pain He received IV Tylenol 1 g and Toradol 15 mg IV this morning which appeared to control his pain better than opiates alone. He is additionally noted to be hypertensive with systolic blood pressure up to 190 this morning. Medications: Reviewed: Yes Vitals/I&O/Wt Last Vital Signs Temp 97.9 F 10/02/21 04:00 Pulse 60 10/02/21 08:00 Resp 16 10/02/21 10:23 BP 196/93 10/02/21 08:00 Pulse Ox 98 10/02/21 08:00 O2 Del Method 10/01/21 16:00 O2 Flow Rate 6 10/01/21 13:53 10/01/21 10/02/21 10/02/21 22:59 06:59 14:59 Intake Total 770 / 920 50 / 970 Output Total 900 / 1600 550 / 2150 Balance -130 / -680 -500 / -1180 Physical Exam Narrative: General: No acute distress except for pain when turning in his bed. AO x3 HEENT: PERRLA, pupils bilaterally equal and reactive, pallors not present Chest: Normal vesicular breath sounds, no added sounds, equal good air entry bilaterally CVS: S1-S2 regular, no murmurs, no tachycardia, no gallops, no rubs Abdomen: Soft, nontender, no organomegaly, bowel sounds present ext: S/p BKA right leg Neuro: No focal deficits, no facial deformity, AO x3, power 5/5 in all limbs Data : 10/01/21 04:44 10/01/21 04:44 Micro: Microbiology 09/25/21 13:37 Anaerobic Culture - Preliminary Toe - #1 A&P Assessment and plan (1) Puncture wound of foot, right, complicated: Status: Acute (2) Cellulitis of right foot: Status: Acute (3) Soft tissue emphysema: Status: Acute (4) Diabetic peripheral neuropathy associated with type 2 diabetes mellitus: Status: Acute (5) GARETH (acute kidney injury): Resolved Renal ultrasound unremarkable. Status: Acute Plan Patient admitted with gas gangrene of the right foot Underwent debridement in OR 09/25 with podiatry, with noted deep infection, and required amputation of the third digit. Continue to have worsening limb changes and gangrene. Patient has known peripheral artery disease with EXPENDITURE REQUISITION CLERK of the popliteal artery. Underwent BKA on 10/01/2021. Current active issues are pain control. Patient reports uncontrolled pain in spite of receiving IV and p.o. Dilaudid overnight. This morning he received IV Tylenol in combination with IV Toradol and seems to be doing better. We will add fentanyl patch 25 mcg every 72 hours. Oxycodone IR every 6 hours as needed. IV Tylenol every 8 hours as appears to be providing some benefit right now. Additionally added IV Toradol 15 mg IV every 8 hours over the next 3 days. Renal function currently normal. OR cultures have revealed MSSA from 09/25, patient is currently on Zosyn. Likely will discontinue antibiotics at discharge as patient has now undergone BKA. Uncontrolled hypertension: Resumed home dose of amlodipine 10 mg,, however systolic blood pressure still continues to range in the 190s. Increase lisinopril back to 40 mg. Additionally resume home dose of hydralazine 10 mg 4 times daily. Continue to hold hydrochlorothiazide for now. Diabetes with peripheral neuropathy, continue lantus 22 units BID and sliding scale . blood sugar currently well controlled History of CVA with residual aphasia Hyperparathyroidism Attestations Medical Necessity Statement*: Status post BKA. Postop monitoring and ongoing need for IV pain management. Uncontrolled hypertension with ongoing dose adjustment with antihypertensives. Coding Level of Care Code Acute Decorating Supervisor for Jennifer Mcleod Diagnoses Puncture wound of foot, right, complicated S91.331A Cellulitis of right foot L03.115 Soft tissue emphysema T79.7XXA Diabetic peripheral neuropathy associated with type 2 diabetes mellitus E11.42 GARETH (acute kidney injury) N17.9
--- NOTE | 2021-10-02 12:08 | P.PN_ITS ---
Subjective Subjective: Patient seen and evaluated this morning. Patient resting comfortably at bedside. Patient some issues with pain overnight. Some adjustments to pain medication was made by primary team patient resting comfortably. No other issues at this time. dressing clean dry and intact. Vitals/I&O/Wt Last Vital Signs Temp 97.9 F 10/02/21 04:00 Pulse 60 10/02/21 08:00 Resp 16 10/02/21 10:23 BP 196/93 10/02/21 08:00 Pulse Ox 98 10/02/21 08:00 O2 Del Method 10/01/21 16:00 O2 Flow Rate 6 10/02/21 08:00 10/01/21 10/02/21 10/02/21 22:59 06:59 14:59 Intake Total 770 / 920 50 / 970 100 / 100 Output Total 900 / 1600 550 / 2150 Balance -130 / -680 -500 / -1180 100 / 100 Physical Exam Narrative: Examination right lower extremity BKA stump dressing on and in place and is clean dry and intact. Patient resting further examination not performed. Per patient's he is able to actively flex and extend his knee. Data : 10/01/21 04:44 10/01/21 04:44 Micro: Microbiology 09/25/21 13:37 Anaerobic Culture - Preliminary Toe - #1 A&P Assessment and plan (1) S/P below knee amputation: Status: Acute Plan Orthopedics recommendations: -Nonweightbearing right BKA stump -Patient should complete 24 hours postoperative antibiotics and at that point time no need from orthopedic standpoint to continue with antibiotics as patient's infection source to the right foot has been removed but will leave to the discretion of hospitalist team -DVT prophylaxis -Pain control -PT/OT -business services coordinator for discharge planning -We will follow-up with me in 2 weeks -We will round on patient tomorrow and change dressing Attestations Medical Necessity Statement*: Patient's status post right below the knee amputation. Patient will require therapy and continued hospitalization until cleared by therapy and appropriate discharge plan made. Coding Level of Care Code Acute Supervisor Production Department for [employer] Diagnoses S/P below knee amputation Z89.519
[2021-10-02 12:32] LABS: Glucose Point of Care 260 mg/dL (70-110)
[2021-10-02] MEDS: hyDRALAzine 10 mg Tablet PO ×3 (13:09→23:59)
[2021-10-02 18:05] LABS: Glucose Point of Care 271 mg/dL (70-110)
[2021-10-02] MEDS: oxyCODONE 5 mg IR Tab/Cap PO (18:29)
[2021-10-02] MEDS: tamsulosin 0.4 mg Capsule PO (20:04)
[2021-10-02] MEDS: atenolol 50 mg Tablet 100 MG PO (20:04)
[2021-10-02] MEDS: atorvastatin 40 mg Tablet PO (20:04)
[2021-10-02 20:41] LABS: Glucose Point of Care 305 mg/dL (70-110)
[2021-10-03] VITALS: BP 157/84; PULSE 58; RESP 18; TEMP 36.8; O2SAT 95
[2021-10-03] MEDS: piperacillin-tazobactam 3.375 GM in sodium chloride 0.9% (plus) 50 ML IV ×2 (03:35→10:38)
[2021-10-03] MEDS: enoxaparin 30 mg/0.3 mL Syringe SUBCUT (03:37)
[2021-10-03 04:00] VITALS: BP 162/81; PULSE 56; RESP 18; TEMP 36.5; O2SAT 98
[2021-10-03 04:48] LABS: Basophils # 0.1 10^3/uL (0.0-0.1); Basophils % 0.6 %; Eosinophils # 0.3 10^3/uL (0.0-0.8); Eosinophils % 3.2 %; Hemoglobin 10.4 g/dL (11.7-16.6); Lymphocytes # 1.8 10^3/uL (0.8-4.8); Lymphocytes % 23.3 %; Mean Corpuscular HGB Conc 33.5 g/dL (30.0-36.0); Mean Corpuscular Hemoglobin 30.6 pg (28.0-34.0); Mean Corpuscular Volume 91.2 fl (80-94); Monocytes # 0.7 10^3/uL (0.2-0.9); Monocytes % 8.7 %; Neutrophils # 4.98 10^3/uL (1.8-7.7); Neutrophils % 63.4 %; Nucleated Red Blood Cells % 0 %; Platelet Count 497 10^3/cmm (130-400); Red Cell Distribution Width 12.5 % (12.1-15.1); White Blood Count 7.9 10^3/uL (4.0-10.0)
[2021-10-03] MEDS: acetaminophen 1,000 MG/100 ML PIGGYBACK 400 MG IV (04:52)
[2021-10-03 05:13] LABS: Alanine Aminotransferase 32 U/L (0-41); Albumin Level 2.8 g/dL (3.5-5.2); Alkaline Phosphatase 128 U/L (40-130); Anion Gap 13.7 (5-19); Aspartate Amino Transferase 34 U/L (0-40); Blood Urea Nitrogen 11 mg/dL (6-20); Calcium 9.3 mg/dL (8.5-10.5); Carbon Dioxide 27 mmol/L (22-29); Chloride 100 mmol/L (98-107); Globulin 4.4 g/dL (1.3-4.6); Glomerular Filtration Rate 87.3 mL/min (90-130); Glucose 214 mg/dL (65-115); Osmolality Calculated 290 mOsm/kg (285-295); Potassium 3.7 mmol/L (3.5-5.1); Sodium 137 mmol/L (136-145); Total Bilirubin 0.3 mg/dL (0.15-1.2); Total Protein 7.2 g/dL (6.6-8.7)
[2021-10-03 06:26] LABS: Glucose Point of Care 227 mg/dL (70-110)
[2021-10-03 06:33] VITALS: RESP 18
[2021-10-03] MEDS: hyDRALAzine 10 mg Tablet PO ×2 (06:33→12:09)
[2021-10-03] MEDS: oxyCODONE 5 mg IR Tab/Cap PO (06:33)
[2021-10-03 07:08] VITALS: BP 166/77; PULSE 60; RESP 18; TEMP 36.7; O2SAT 98
[2021-10-03] MEDS: insulin lispro 100 unit/1 mL SUBCUT ×2 (08:20→12:07)
[2021-10-03] MEDS: gabapentin 400 mg Capsule PO (08:22)
[2021-10-03] MEDS: amlodipine 10 mg Tablet PO (08:22)
[2021-10-03] MEDS: clopidogrel 75 mg Tablet PO (08:22)
[2021-10-03] MEDS: aspirin 81 mg EC Tablet PO (08:22)
[2021-10-03] MEDS: fluoxetine 20 mg Capsule PO (08:22)
[2021-10-03] MEDS: pantoprazole DR 40 mg Tablet 20 MG PO (08:23)
[2021-10-03] MEDS: lisinopril 20 mg Tablet 40 MG PO (08:23)
[2021-10-03] MEDS: ketorolac 30 mg/mL INJ 15 MG IVP (08:25)
--- NOTE | 2021-10-03 08:30 | PM.PN ---
Subjective Subjective: Patient seen and evaluated this morning. Patient doing much better for pain control after adjusted medications by primary team. Patient's dressing was taken down and wound inspected this morning. Incision is clean dry and intact no signs of infection or wound dehiscence. Well approximated skin edges with clara. Incision was then redressed and patient as well as family educated on appropriate wound management. At this point time patient stable for discharge from orthopedic standpoint. We will have patient close follow-up working with [facility] prosthetists. Discussed with primary team and we will have patient resume his aspirin Plavix which was cleared by the cardiology team. He will go home on a short dose of p.o. antibiotics. Patient should be nonweightbearing to the right below the knee amputation. We will follow-up with him in 2 weeks in office. Patient and family understand and agree with current plan. All questions answered. Vitals/I&O/Wt Last Vital Signs Temp 98.1 F 10/03/21 14:16 Pulse 67 10/03/21 14:16 Resp 18 10/03/21 14:16 BP 148/72 10/03/21 14:16 Pulse Ox 97 10/03/21 14:16 O2 Del Method 10/03/21 11:12 O2 Flow Rate 6 10/02/21 08:00 Physical Exam Narrative: Examination of the right BKA stump dressing in place subsequently taken down. Patient's incisions clean dry and intact. [place] well approximating skin edges. No signs of wound dehiscence or necrosis. Patient has sensation intact to the right below the knee potation stump. Is warm well perfused. Patient is able to flex and extend at the knee. Data : 10/03/21 04:18 10/03/21 04:18 A&P Assessment and plan (1) S/P below knee amputation: Status: Acute Plan - Stable for discharge from orthopedic standpoint -Dressing changed this morning clean dry and intact new dressing applied to may be left on until his follow-up, if it does become saturated a new dressing may be applied -Patient to resume home aspirin and Plavix which will cover for DVT prophylaxis, this was cleared by cardiology team -Short dose p.o. antibiotics at discharge -Pain control -Nonweightbearing right below the knee amputation stump -PT/OT -Plan to follow-up in office in 2 weeks at the orthopedic office Attestations Medical Necessity Statement*: Patient had right below the knee amputation and required appropriate pain control and therapy postoperatively Coding Level of Care Code Acute Missionary Coordinator for g Fwd Diagnoses S/P below knee amputation Z89.519 Time Spent (min) 30
--- NOTE | 2021-10-03 10:15 | PC.SOCIAL ---
IMM Update pg 2 of IMM updated and reviewed w/ patient. Copy provided and copy in chart dated and initialed.
[2021-10-03 10:59] LABS: Glucose Point of Care 284 mg/dL (70-110)
[2021-10-03 11:12] VITALS: BP 148/72; PULSE 67; RESP 18; TEMP 36.7; O2SAT 97
--- NOTE | 2021-10-03 11:19 | PM.DCS ---
Discharge Providers Date of Admission: 09/24/21 16:49 Date of Discharge: October 03, 2021 Attending Provider at Admission: Grayson Lacy Attending Provider at Discharge: Namrata Benoit MD Consults: Ed Nielsen MD/ orthopedics Ye Pruett MD/Podiatry Mireya Grey MD/ Cardiology Primary Care Provider: Dillon Stein Diagnoses at Discharge Discharge Diagnosis (1) Puncture wound of foot, right, complicated: Status: Acute (2) Cellulitis of right foot: Status: Acute (3) Soft tissue emphysema: Status: Acute (4) Diabetic peripheral neuropathy associated with type 2 diabetes mellitus: Status: Acute (5) GARETH (acute kidney injury): Status: Acute Reason for Visit Reason for Visit: Dr. Grayson sent for Right foot infection Brief History: 55-year-old gentleman with past history of CVA, with residual aphasia diabetes, PAD, HTN, HLD, smoking came to ER after initially assessment earlier today at podiatry clinic due to nonhealing wound of the right plantar surface of the foot, with foot swelling, swelling of the toes, as well as dusky patchy purplish discoloration of third right toe, with tracking up on the dorsal foot.? He has been having quite a bit of pain in the right foot as well.? The wound reportedly originated after a puncture by a staple a week ago.? He was initially seen at [facility] ER 09/23, he had received an antibiotic infusion, and was discharged and appears on a course of 10 days of ciprofloxacin. Hospital Course Hospital Course Overall clinical assessment was consistent with that of gas gangrene of the right foot. On 09/25/2021 he underwent I&D of the right foot with third toe amputation. Culture revealed MSSA. Severe peripheral artery disease was additionally noted for which he underwent consultation with intervention cardiology.ABIs were done and on the right side significantly lower at 0.62 and TBI is very low.?He underwent peripheral angiogram that showed patent vessels till distal popliteal artery below the knee.? TP segment and anterior tibial arteries are totally occluded.? Only blood flows through is through collaterals that supply the foot via reconstitution of PT. Chances of revascularization were minimal with very high risk of turning into acute limb while attempting cross through totally occluded sections and vascular damage to residual distal blood supply.? medical therapy was recommended for now for PAD. Further in the hospitalization there was further discoloration of the right fourth toe however no active purulent drainage or rapid progression of infection.? Given the ischemic changes progressing throughout the foot, patient decided to proceed with BKA after extensive discussion. ?The procedure was performed on 10/01/21. Patient tolerated this procedure well. He had some issues with pain control however this is now managed with a combination of opiates and NSAIDs. He is being discharged today in stable condition with arrangements being made with home health. He has multimedia author caregivers at home. Stump has been inspected at discharge by ortho team. F/up in 2 weeks. His antihypertensives needed to be adjusted in the hospital due to GARETH on admission. Lisinopril was temporarily on hold, has now been resumed at discharge. Cr improved at 0.9. Amlodipine, atenolol to continue. Hydralazine has been changed from prn to scheduled. Physical Exam Narrative: General: No acute distress, AO x3 HEENT: PERRLA, pupils bilaterally equal and reactive, pallors not present Chest: Normal vesicular breath sounds, no added sounds, equal good air entry bilaterally CVS: S1-S2 regular, no murmurs, no tachycardia, no gallops, no rubs Abdomen: Soft, nontender, no organomegaly, bowel sounds present Neuro: No focal deficits, no facial deformity, AO x3, power 5/5 in all limbs Extremities: s/p right BKA Discharge Data Studies Completed and Pending Completed Studies During Hospitalization Category Date Time Status XR foot RT min 3V* [id number] Routine Exams 09/26/21 09:35 Completed XR tibia fibula RT 2V [id number] Routine Exams 09/30/21 19:53 Completed Pathology: Surgical [PTH] Routine Pth 09/25/21 13:53 Completed CV ankle brachial index [id number] Routine Ultrasound 09/25/21 20:09 Completed US kidney bilateral with bladder [US renal BI with PV Ultrasound 09/24/21 20:09 Completed bladder] Routine Pending at discharge Category Date Time Status FLATLOCK SEWING MACHINE OPERATOR request for service Routine Exams 09/26/21 09:47 Taken Pathology: Surgical [PTH] Routine Pth 10/01/21 13:02 Received Radiology Impressions Renal Ultrasound 09/24/21 20:09 Impression: 1. Negative bilateral renal ultrasound. 2. Prevoid volume of 167 mL and postvoid volume of 34 mL. Foot X-Ray 09/26/21 09:35 Impression: Amputation of the right third toe. Tibia/Fibula X-Ray 09/30/21 19:53 IMPRESSION: No acute findings. Laboratory Results WBC 7.9 10^3/uL (4.0-10.0) 10/03/21 04:18 RBC 3.40 10^6/uL (4.1-5.3) L 10/03/21 04:18 Hgb 10.4 g/dL (11.7-16.6) L 10/03/21 04:18 Hct 31.0 % (42.0-52.0) L 10/03/21 04:18 MCV 91.2 fl (80-94) 10/03/21 04:18 MCH 30.6 pg (28.0-34.0) 10/03/21 04:18 MCHC 33.5 g/dL (30.0-36.0) 10/03/21 04:18 RDW 12.5 % (12.1-15.1) 10/03/21 04:18 Plt Count 497 10^3/cmm (130-400) H 10/03/21 04:18 MPV 9.0 fL (7.4-10.4) 10/03/21 04:18 Neut % (Auto) 63.4 % 10/03/21 04:18 Lymph % (Auto) 23.3 % 10/03/21 04:18 [place] % (Auto) 8.7 % 10/03/21 04:18 Eos % (Auto) 3.2 % 10/03/21 04:18 Baso % (Auto) 0.6 % 10/03/21 04:18 Neut # (Auto) 4.98 10^3/uL (1.8-7.7) 10/03/21 04:18 Lymph # (Auto) 1.8 10^3/uL (0.8-4.8) 10/03/21 04:18 [place] # (Auto) 0.7 10^3/uL (0.2-0.9) 10/03/21 04:18 Eos # (Auto) 0.3 10^3/uL (0.0-0.8) 10/03/21 04:18 Baso # (Auto) 0.1 10^3/uL (0.0-0.1) 10/03/21 04:18 Nucleated RBC % (auto) 0 % 10/03/21 04:18 Nucleated RBCs # 0.0 /100WBC 10/03/21 04:18 PT 14.00 SECONDS (12.1-14.9) 10/01/21 11:18 INR 1.05 (0.8-1.2) 10/01/21 11:18 Sodium 137 mmol/L (136-145) 10/03/21 04:18 Potassium 3.7 mmol/L (3.5-5.1) 10/03/21 04:18 Chloride 100 mmol/L (98-107) 10/03/21 04:18 Carbon Dioxide 27 mmol/L (22-29) 10/03/21 04:18 Anion Gap 13.7 (5-19) 10/03/21 04:18 BUN 11 mg/dL (6-20) 10/03/21 04:18 Creatinine 0.9 mg/dL (0.7-1.2) 10/03/21 04:18 GFR Calculation 87.3 mL/min (90-130) L 10/03/21 04:18 Glucose 214 mg/dL (65-115) H 10/03/21 04:18 POC Glucose 284 mg/dL (70-110) H 10/03/21 10:53 Calculated Osmolality 290 mOsm/kg (285-295) 10/03/21 04:18 Calcium 9.3 mg/dL (8.5-10.5) 10/03/21 04:18 Total Bilirubin 0.3 mg/dL (0.15-1.2) 10/03/21 04:18 AST 34 U/L (0-40) 10/03/21 04:18 ALT 32 U/L (0-41) 10/03/21 04:18 Alkaline Phosphatase 128 U/L (40-130) 10/03/21 04:18 C-Reactive Protein 226.2 mg/L (0.0-4.9) H 09/24/21 15:37 Total Protein 7.2 g/dL (6.6-8.7) 10/03/21 04:18 Albumin 2.8 g/dL (3.5-5.2) L 10/03/21 04:18 Globulin 4.4 g/dL (1.3-4.6) 10/03/21 04:18 Ur Random Sodium 26 mmol/L 09/25/21 01:54 Ur Random Urea Nitrogn 648 mg/dL 09/25/21 01:54 Urine Creatinine 132 mg/dL (39-259) 09/25/21 01:54 Vancomycin Trough 13.4 ug/mL (10-15) 09/29/21 16:04 Blood Type A Positive 10/01/21 11:18 Rho(D) Type Positive 10/01/21 11:18 Antibody Screen Negative 10/01/21 11:18 Vitals Last Vital Signs Temp 98.1 F 10/03/21 11:12 Pulse 67 10/03/21 11:12 Resp 18 10/03/21 11:12 BP 148/72 10/03/21 11:12 Pulse Ox 97 10/03/21 11:12 O2 Del Method 10/03/21 11:12 O2 Flow Rate 6 10/02/21 08:00 Discharge Plan Discharge Patient Disposition: Home Health Service Condition: Stable Prescriptions: New Endocet 5-325 mg tablet 1 tab PO Q6H PRN (Reason: pain) 7 Days Qty: 30 0RF cefuroxime axetil 500 mg tablet 500 mg PO BID 3 Days Qty: 6 0RF Continued tamsulosin 0.4 mg capsule 0.4 mg PO BEDTIME lisinopril 40 mg tablet 40 mg PO DAILY cholecalciferol (vitamin D3) 50 mcg (2,000 unit) capsule 50 mcg PO DAILY fluoxetine 20 mg tablet 20 mg PO DAILY clopidogrel 75 mg tablet 75 mg PO DAILY amlodipine 10 mg tablet 10 mg PO BEDTIME baclofen 10 mg tablet 10 mg PO BID PRN (Reason: Pain) atorvastatin 40 mg tablet 40 mg PO BEDTIME metformin 1,000 mg tablet 1,000 mg PO BID Qty: 180 1RF Rx Instructions: 340b program atenolol 100 mg tablet 100 mg PO BEDTIME hydroxyzine HCl 25 mg tablet 25 mg PO BID PRN (Reason: Anxiety) (DME) Dexcom G6 Computational Physicist Misc See Rx Instructions .ROUTE .MEDSUPPLY Qty: 1 0RF Rx Instructions: As directed (DME) Dexcom G6 Sensor Device See Rx Instructions .ROUTE .MEDSUPPLY Qty: 3 3RF Rx Instructions: continous monitor (DME) Dexcom G6 Transmitter Device See Rx Instructions .ROUTE .MEDSUPPLY Qty: 1 3RF Rx Instructions: As directed (DME) FreeStyle April 2 [place] Misc See Rx Instructions .Route Qty: 1 0RF Rx Instructions: Check BS 4-6 times a day. (DME) FreeStyle April 2 Sensor Kit See Rx Instructions .Route Qty: 6 3RF Rx Instructions: Change every 14 days. gabapentin 400 mg Capsule 400 mg PO BID Humalog KwikPen Insulin 100 unit/mL insulin pen See Rx Instructions .ROUTE .COMPLEX Rx Instructions: 10 units subq in the morning / 6 units subq in the evening take before breakfast and before dinner. 340b program Changed aspirin 81 mg tablet,delayed release (DR/EC) 81 mg PO DAILY 30 Days Qty: 30 0RF hydralazine 10 mg Tablet 10 mg PO Q6H 30 Days Qty: 120 0RF Discontinued ciprofloxacin HCl 500 mg tablet 500 mg PO BID hydrochlorothiazide 25 mg Tablet 25 mg PO DAILY No Action pantoprazole 20 mg tablet,delayed release (DR/EC) 20 mg PO DAILY Levemir FlexTouch U-100 Insuln 100 unit/mL (3 mL) insulin pen 44 unit SUBCUT BID Rx Instructions: 340b program Discharge Orders: Discharge Order (Routine); Ordered 10/03/21 Ordered By: Namrata Benoit Referrals: [facility] [Outside] Dillon Stein [Primary Care Provider] - Ed Nielsen DO [Physician] - 2 weeks Discharge Diet: Cardiac and Diabetic Discharge Activity: Resume usual activity Patient Instructions: Opioid Safety Activity Restrictions/Additional Instructions: Leave dressing intact until f/up w/ doctor if becomes saturated may change with Xeroform, 4x4s, ABD, soft roll (Kerlix), and an Jass wrap and can call Dr. Sher office w/ any questions. Discharge Attestations Time Spent in Discharge Care*: greater than 30 min Quality Metrics Clinical Quality Measures [ No reported AMI, CVA or VTE this stay] Coding Level of Care Code Acute Chg FW DC note Diagnoses Puncture wound of foot, right, complicated S91.331A Cellulitis of right foot L03.115 Soft tissue emphysema T79.7XXA Diabetic peripheral neuropathy associated with type 2 diabetes mellitus E11.42 GARETH (acute kidney injury) N17.9
[2021-10-03 14:16] VITALS: BP 148/72; PULSE 67; RESP 18; TEMP 36.7; O2SAT 97
== END 2021-10-03 14:00 | disposition home health service (06) | DRG 40 ==
LOC: ER 17:46 → MEDSURG 18:05 → ICU 09-26 15:48 → MEDSURG 09-27 19:54
PROVIDERS: Internal Medicine; Podiatrist Foot & Ankle Surgery; Student in an Organized Health Care Education/Training Program; Admitting Provider Internal Medicine; Emergency Provider Family Medicine; PCP Family Medicine; Visit Provider Student in an Organized Health Care Education/Training Program
PROC: 0Y6T0Z0 Detachment at Right 3rd Toe, Complete, Open Approach (ICD-10-PCS; principal; 2021-09-25 12:45)
PROC: 0Y6T0Z0 Detachment at Right 3rd Toe, Complete, Open Approach (ICD-10-PCS; 2021-09-25 12:45)
PROC: B41DYZZ Fluoroscopy of Aorta and Bilateral Lower Extremity Arteries using Other Contrast (ICD-10-PCS; principal; 2021-09-26 15:00)
PROC: 0Y6H0Z3 Detachment at Right Lower Leg, Low, Open Approach (ICD-10-PCS; CPT 27880; principal; 2021-10-01 10:15)
DX: E11.42 Type 2 diabetes mellitus with diabetic polyneuropathy (principal); A48.0 Gas gangrene; L03.115 Cellulitis of right lower limb; E11.52 Type 2 diabetes mellitus with diabetic peripheral angiopathy with gangrene; M86.171 Other acute osteomyelitis, right ankle and foot; M86.671 Other chronic osteomyelitis, right ankle and foot; N17.9 Acute kidney failure, unspecified; S91.331A Puncture wound without foreign body, right foot, initial encounter; E11.65 Type 2 diabetes mellitus with hyperglycemia; E11.69 Type 2 diabetes mellitus with other specified complication; E21.3 Hyperparathyroidism, unspecified; I10 Essential (primary) hypertension; I69.320 Aphasia following cerebral infarction; F17.200 Nicotine dependence, unspecified, uncomplicated; T81.82XA Emphysema (subcutaneous) resulting from a procedure, initial encounter; E78.5 Hyperlipidemia, unspecified; B95.61 Methicillin susceptible Staphylococcus aureus infection as the cause of diseases classified elsewhere; Z79.02 Long term (current) use of antithrombotics/antiplatelets; Z79.84 Long term (current) use of oral hypoglycemic drugs; Z79.4 Long term (current) use of insulin
CPT/HCPCS: 12345; 36415; 36416; 73590; 73630; 75625; 75716; 76770; 76857; 80048; 80053; 80202; 82570; 82962; 84300; 84540; 85025; 85610; 86140; 86850; 86900; 87040; 87070; 87075; 87077; 87186; 87205; 88305; 88307; 88311; 93005; 93922; 94760; 96360; 96365; 96372; 97110; 97116; 97161; 97167; 97530; 99152; 99153; 99214; 99285; C1760; C1769; C1887; C1894; J0744; J1170; J1644; J1650; J1815; J1885; J2250; J2405; J2543; J2704; J2795; J3010; J3370; J3490; J7030; J7050; Q9967

== ENCOUNTER → 2021-10-17 07:56 | Outpatient (BNVA) | payer MEDICARE, SELFPAY | PROVIDERS: PCP Family Medicine; Visit Provider Student in an Organized Health Care Education/Training Program | DX: Z89.519 Acquired absence of unspecified leg below knee (principal); E11.65 Type 2 diabetes mellitus with hyperglycemia; E21.3 Hyperparathyroidism, unspecified; F17.210 Nicotine dependence, cigarettes, uncomplicated; Z79.4 Long term (current) use of insulin; Z79.84 Long term (current) use of oral hypoglycemic drugs | CPT/HCPCS: 99024; 99215 ==

== ENCOUNTER → 2021-10-31 07:01 | Outpatient (BNVA) | payer MEDICARE, SELFPAY | PROVIDERS: PCP Family Medicine; Visit Provider Student in an Organized Health Care Education/Training Program | DX: Z89.511 Acquired absence of right leg below knee (principal) | CPT/HCPCS: 73590; 99024 ==

== ENCOUNTER → 2021-11-21 08:23 | Outpatient (BNVA) | payer MEDICARE, SELFPAY | PROVIDERS: PCP Family Medicine; Visit Provider Student in an Organized Health Care Education/Training Program | DX: Z89.511 Acquired absence of right leg below knee (principal) | CPT/HCPCS: 99024 ==

== ENCOUNTER → 2021-11-25 13:21 | Outpatient (BNVA) | payer MEDICARE, SELFPAY | PROVIDERS: PCP Family Medicine; Visit Provider Nurse Practitioner Family | DX: I96 Gangrene, not elsewhere classified (principal); T87.81 Dehiscence of amputation stump; Y83.8 Other surgical procedures as the cause of abnormal reaction of the patient, or of later complication, without mention of misadventure at the time of the procedure; E11.622 Type 2 diabetes mellitus with other skin ulcer; L98.491 Non-pressure chronic ulcer of skin of other sites limited to breakdown of skin; Z79.4 Long term (current) use of insulin; Z79.84 Long term (current) use of oral hypoglycemic drugs | CPT/HCPCS: 11042; 11045; 99213 ==

== ENCOUNTER → 2021-12-02 13:39 | Outpatient (BNVA) | payer MEDICARE, SELFPAY | PROVIDERS: PCP Family Medicine; Visit Provider Nurse Practitioner Family | DX: T87.81 Dehiscence of amputation stump (principal); Y83.8 Other surgical procedures as the cause of abnormal reaction of the patient, or of later complication, without mention of misadventure at the time of the procedure; I96 Gangrene, not elsewhere classified; L97.812 Non-pressure chronic ulcer of other part of right lower leg with fat layer exposed; E11.40 Type 2 diabetes mellitus with diabetic neuropathy, unspecified; Z89.511 Acquired absence of right leg below knee | CPT/HCPCS: 11042; 11045 ==

== ENCOUNTER → 2021-12-09 14:54 | Outpatient (BNVA) | payer MEDICARE, SELFPAY | PROVIDERS: PCP Family Medicine; Visit Provider Nurse Practitioner Family | DX: T87.81 Dehiscence of amputation stump (principal); Y83.8 Other surgical procedures as the cause of abnormal reaction of the patient, or of later complication, without mention of misadventure at the time of the procedure; I96 Gangrene, not elsewhere classified; L97.812 Non-pressure chronic ulcer of other part of right lower leg with fat layer exposed; E11.40 Type 2 diabetes mellitus with diabetic neuropathy, unspecified; Z89.511 Acquired absence of right leg below knee | CPT/HCPCS: 11042; 99213 ==

== ENCOUNTER → 2021-12-16 14:15 | Outpatient (BNVA) | payer MEDICARE, SELFPAY | PROVIDERS: PCP Family Medicine; Visit Provider Nurse Practitioner Family | DX: T87.81 Dehiscence of amputation stump (principal); Y83.8 Other surgical procedures as the cause of abnormal reaction of the patient, or of later complication, without mention of misadventure at the time of the procedure; I96 Gangrene, not elsewhere classified; L97.812 Non-pressure chronic ulcer of other part of right lower leg with fat layer exposed; E11.40 Type 2 diabetes mellitus with diabetic neuropathy, unspecified; Z89.511 Acquired absence of right leg below knee | CPT/HCPCS: 11042; 99024 ==

== ENCOUNTER → 2021-12-23 09:12 | Outpatient (BNVA) | payer MEDICARE, SELFPAY | PROVIDERS: PCP Family Medicine; Visit Provider Nurse Practitioner Family | DX: T87.81 Dehiscence of amputation stump (principal); Y83.8 Other surgical procedures as the cause of abnormal reaction of the patient, or of later complication, without mention of misadventure at the time of the procedure; E11.622 Type 2 diabetes mellitus with other skin ulcer; Z89.511 Acquired absence of right leg below knee | CPT/HCPCS: 11042 ==

== ENCOUNTER → 2021-12-30 13:23 | Outpatient (BNVA) | payer MEDICARE, SELFPAY | PROVIDERS: PCP Family Medicine; Visit Provider Nurse Practitioner Family | DX: T87.81 Dehiscence of amputation stump (principal); E11.622 Type 2 diabetes mellitus with other skin ulcer; L97.812 Non-pressure chronic ulcer of other part of right lower leg with fat layer exposed; Z89.511 Acquired absence of right leg below knee | CPT/HCPCS: 11042 ==

== ENCOUNTER → 2022-01-06 13:04 | Outpatient (BNVA) | payer MEDICARE, SELFPAY | PROVIDERS: PCP Family Medicine; Visit Provider Nurse Practitioner Family | DX: I96 Gangrene, not elsewhere classified (principal); T81.31XD Disruption of external operation (surgical) wound, not elsewhere classified, subsequent encounter; Y83.8 Other surgical procedures as the cause of abnormal reaction of the patient, or of later complication, without mention of misadventure at the time of the procedure; E11.622 Type 2 diabetes mellitus with other skin ulcer; L97.812 Non-pressure chronic ulcer of other part of right lower leg with fat layer exposed; Z89.511 Acquired absence of right leg below knee | CPT/HCPCS: 11042 ==

== ENCOUNTER → 2022-01-13 12:59 | Outpatient (BNVA) | payer MEDICARE, SELFPAY | PROVIDERS: PCP Family Medicine; Visit Provider Nurse Practitioner Family | DX: T87.81 Dehiscence of amputation stump (principal); Y83.8 Other surgical procedures as the cause of abnormal reaction of the patient, or of later complication, without mention of misadventure at the time of the procedure; E11.622 Type 2 diabetes mellitus with other skin ulcer; I96 Gangrene, not elsewhere classified; L97.812 Non-pressure chronic ulcer of other part of right lower leg with fat layer exposed; Z89.511 Acquired absence of right leg below knee | CPT/HCPCS: 11042; 15271; A6206; A6250; Q4205 ==

== ENCOUNTER → 2022-01-20 13:32 | Outpatient (BNVA) | payer MEDICARE, SELFPAY | PROVIDERS: PCP Family Medicine; Visit Provider Thoracic Surgery (Cardiothoracic Vascular Surgery) | DX: T87.81 Dehiscence of amputation stump (principal); E11.622 Type 2 diabetes mellitus with other skin ulcer; L97.812 Non-pressure chronic ulcer of other part of right lower leg with fat layer exposed; Z89.511 Acquired absence of right leg below knee | CPT/HCPCS: 15271; A6206; A6220; A6250; Q4205 ==

== ENCOUNTER → 2022-01-27 09:55 | Outpatient (BNVA) | payer MEDICARE, SELFPAY | PROVIDERS: PCP Family Medicine; Visit Provider Thoracic Surgery (Cardiothoracic Vascular Surgery) | DX: T87.81 Dehiscence of amputation stump (principal); Y83.8 Other surgical procedures as the cause of abnormal reaction of the patient, or of later complication, without mention of misadventure at the time of the procedure; E11.622 Type 2 diabetes mellitus with other skin ulcer; L97.812 Non-pressure chronic ulcer of other part of right lower leg with fat layer exposed; Z89.511 Acquired absence of right leg below knee | CPT/HCPCS: 15271; 97597; 99213; A6021; A6206; A6250; Q4205 ==

== ENCOUNTER → 2022-02-03 10:53 | Outpatient (BNVA) | payer MEDICARE, SELFPAY | PROVIDERS: PCP Family Medicine; Visit Provider Thoracic Surgery (Cardiothoracic Vascular Surgery) | DX: T87.81 Dehiscence of amputation stump (principal); Y83.8 Other surgical procedures as the cause of abnormal reaction of the patient, or of later complication, without mention of misadventure at the time of the procedure; E11.622 Type 2 diabetes mellitus with other skin ulcer; L97.812 Non-pressure chronic ulcer of other part of right lower leg with fat layer exposed; Z89.511 Acquired absence of right leg below knee | CPT/HCPCS: 11042; 15271; A6206; A6250; Q4205 ==

== ENCOUNTER → 2022-02-10 15:11 | Outpatient (BNVA) | payer MEDICARE, SELFPAY | PROVIDERS: PCP Family Medicine; Visit Provider Thoracic Surgery (Cardiothoracic Vascular Surgery) | DX: T87.81 Dehiscence of amputation stump (principal); Y83.8 Other surgical procedures as the cause of abnormal reaction of the patient, or of later complication, without mention of misadventure at the time of the procedure; E11.622 Type 2 diabetes mellitus with other skin ulcer; L97.812 Non-pressure chronic ulcer of other part of right lower leg with fat layer exposed; Z89.511 Acquired absence of right leg below knee | CPT/HCPCS: 97597 ==

== ENCOUNTER → 2022-02-16 13:13 | Outpatient (BNVA) | payer MEDICARE, SELFPAY | PROVIDERS: PCP Family Medicine; Visit Provider Thoracic Surgery (Cardiothoracic Vascular Surgery) | DX: T87.81 Dehiscence of amputation stump (principal); Y83.8 Other surgical procedures as the cause of abnormal reaction of the patient, or of later complication, without mention of misadventure at the time of the procedure; Y92.9 Unspecified place or not applicable; E11.622 Type 2 diabetes mellitus with other skin ulcer; L97.812 Non-pressure chronic ulcer of other part of right lower leg with fat layer exposed; Z89.511 Acquired absence of right leg below knee | CPT/HCPCS: 97597 ==

== ENCOUNTER → 2022-02-23 13:43 | Outpatient (BNVA) | payer MEDICARE, SELFPAY | PROVIDERS: PCP Family Medicine; Visit Provider Thoracic Surgery (Cardiothoracic Vascular Surgery) | DX: T87.81 Dehiscence of amputation stump (principal); Y83.8 Other surgical procedures as the cause of abnormal reaction of the patient, or of later complication, without mention of misadventure at the time of the procedure; E11.622 Type 2 diabetes mellitus with other skin ulcer; L97.812 Non-pressure chronic ulcer of other part of right lower leg with fat layer exposed; Z89.511 Acquired absence of right leg below knee | CPT/HCPCS: 97597 ==

== ENCOUNTER → 2022-03-02 10:16 | Outpatient (BNVA) | payer MEDICARE, SELFPAY | PROVIDERS: PCP Family Medicine; Visit Provider Student in an Organized Health Care Education/Training Program | DX: Z89.511 Acquired absence of right leg below knee (principal) | CPT/HCPCS: 99213 ==

== ENCOUNTER → 2022-03-16 13:37 | Outpatient (BNVA) | payer MEDICARE, SELFPAY | PROVIDERS: PCP Family Medicine; Visit Provider Thoracic Surgery (Cardiothoracic Vascular Surgery) | DX: Z09 Encounter for follow-up examination after completed treatment for conditions other than malignant neoplasm (principal) | CPT/HCPCS: 99212 ==

== ENCOUNTER → 2022-04-10 13:15 | Outpatient (BNVA) | payer MEDICARE, SELFPAY | PROVIDERS: PCP Family Medicine; Visit Provider Student in an Organized Health Care Education/Training Program | DX: Z89.511 Acquired absence of right leg below knee (principal) | CPT/HCPCS: 99213 ==

== ENCOUNTER 2022-04-27 12:09 | Outpatient (CLI) | payer MEDICARE, SELFPAY ==
--- NOTE | 2022-04-27 12:30 | USCV_ITS ---
Aldo Alcaraz Age: 56 Gender: M : 1965 Exam Date: 04/27/2022 13:04 Ordering Phys: Dillon Stein Technologist: Darien Melissa [place] [facility] [place]ication: btk amputation on rt, pvd RIGHT LEFT Brachial 154.00 mmHg Brachial 147.00 mmHg Pressure (mmHg) Waveform Pressure (mmHg) Waveform SOUP MIXER 135.00 DPA 131.00 Ankle/Brachial Index 0.88 FINDINGS Resting TAWNY of 0.88 on the left side CONCLUSIONS Diminished resting TAWNY on the left side, suggesting mild peripheral arterial disease Compared to the study from 09/25/2021, the resting TAWNY improved from 0.81 to 0.[address] on the left side[address] Dr Brenda Wright MD [facility] WITH [facility] (Electronically Signed) Final Date: 28 April 2022 21:59 S
== END 2022-04-27 12:10 | disposition home or self-care (01) ==
LOC: RAD 12:13
PROVIDERS: PCP Family Medicine; Visit Provider Family Medicine
DX: I73.9 Peripheral vascular disease, unspecified (principal); Z89.511 Acquired absence of right leg below knee
CPT/HCPCS: 93922

== ENCOUNTER → 2022-09-08 10:07 | Outpatient (BNVA) | payer MEDICARE, SELFPAY | PROVIDERS: PCP Family Medicine; Visit Provider Internal Medicine | DX: E11.65 Type 2 diabetes mellitus with hyperglycemia; E21.3 Hyperparathyroidism, unspecified; Z79.4 Long term (current) use of insulin; Z79.84 Long term (current) use of oral hypoglycemic drugs | CPT/HCPCS: 36415; 80053; 82310; 83970; 99214 ==

== ENCOUNTER → 2022-11-06 08:56 | Outpatient (BNVA) | payer MEDICARE, SELFPAY | PROVIDERS: PCP Family Medicine; Visit Provider Student in an Organized Health Care Education/Training Program | DX: Z98.890 Other specified postprocedural states; Z89.511 Acquired absence of right leg below knee | CPT/HCPCS: 99213 ==

== ENCOUNTER → 2022-12-16 13:59 | Outpatient (BNVA) | payer MEDICARE, SELFPAY | PROVIDERS: PCP Family Medicine; Visit Provider Internal Medicine | DX: E11.65 Type 2 diabetes mellitus with hyperglycemia (principal); E78.5 Hyperlipidemia, unspecified; E21.3 Hyperparathyroidism, unspecified; Z79.4 Long term (current) use of insulin; Z79.84 Long term (current) use of oral hypoglycemic drugs | CPT/HCPCS: 99213 ==

== ENCOUNTER → 2023-03-15 08:40 | Outpatient (BNVA) | payer MEDICARE, SELFPAY | PROVIDERS: PCP Family Medicine; Visit Provider Internal Medicine | DX: E11.65 Type 2 diabetes mellitus with hyperglycemia (principal); E21.3 Hyperparathyroidism, unspecified; E78.5 Hyperlipidemia, unspecified; E11.649 Type 2 diabetes mellitus with hypoglycemia without coma; Z79.4 Long term (current) use of insulin; Z79.84 Long term (current) use of oral hypoglycemic drugs | CPT/HCPCS: 99214 ==

== ENCOUNTER → 2023-09-17 09:50 | Outpatient (BNVA) | payer MEDICARE, SELFPAY | PROVIDERS: PCP Family Medicine; Visit Provider Internal Medicine | DX: E21.3 Hyperparathyroidism, unspecified; E78.5 Hyperlipidemia, unspecified; Z79.4 Long term (current) use of insulin; Z79.84 Long term (current) use of oral hypoglycemic drugs; E11.9 Type 2 diabetes mellitus without complications | CPT/HCPCS: 99214 ==

== ENCOUNTER 2024-01-10 08:09 | Outpatient (CLI) | payer MEDICARE, SELFPAY ==
[2024-01-10 09:06] LABS: Alanine Aminotransferase 9 U/L (0-41); Albumin Level 4.2 g/dL (3.5-5.2); Alkaline Phosphatase 67 U/L (40-130); Anion Gap 12.9 (5-19); Aspartate Amino Transferase 10 U/L (0-40); Blood Urea Nitrogen 19 mg/dL (6-20); Carbon Dioxide 27 mmol/L (22-29); Chloride 98 mmol/L (98-107); Chol HDL Ratio 3.76 mg/dL (1.0-5.00); Cholesterol 154 mg/dL (0-200); Glomerular Filtration Rate 86.4 mL/min (90-130); Glucose 263 mg/dL (65-115); HDL Cholesterol 41 mg/dL (60-100); LDL Cholesterol Calculated 47 mg/dL (50-129); LDL HDL Ratio 1.15 RATIO (0.00-3.22); Osmolality Calculated 289 mOsm/kg (285-295); Potassium 3.9 mmol/L (3.5-5.1); Sodium 134 mmol/L (136-145); Total Bilirubin 0.3 mg/dL (0.15-1.2); Total Protein 6.2 g/dL (6.6-8.7); Triglycerides 332 mg/dL (0-150)
[2024-01-10 09:15] LABS: Calcium 11.1 mg/dL (8.5-10.5)
[2024-01-10 09:19] LABS: Creatinine Urine, Random 112 mg/dL (39-259)
[2024-01-10 09:22] LABS: Parathyroid Hormone 61.2 pg/mL (15-65)
[2024-01-10 09:34] LABS: Microalbum Creatinine Ratio Ur 563 mg/dL (0-20); Microalbumin Random Urine 63 ug/dL (0-20)
[2024-01-10 10:28] LABS: Estmated Average Glucose 246; Hemoglobin A1C 10.2 % (4.0-6.0)
== END 2024-01-10 08:10 | disposition home or self-care (01) ==
LOC: LAB 08:10
PROVIDERS: PCP Family Medicine; Visit Provider Internal Medicine
DX: E11.9 Type 2 diabetes mellitus without complications (principal); E21.3 Hyperparathyroidism, unspecified; E78.5 Hyperlipidemia, unspecified; Z79.84 Long term (current) use of oral hypoglycemic drugs
CPT/HCPCS: 36415; 80053; 80061; 82044; 82310; 83036; 83970; 84681; 86337; 86341; 99214

== ENCOUNTER 2024-05-26 09:16 | Outpatient (CLI) | payer MEDICARE, SELFPAY ==
[2024-05-26 10:09] LABS: Estmated Average Glucose 295; Hemoglobin A1C 11.9 % (4.0-6.0)
[2024-05-26 10:11] LABS: Alanine Aminotransferase 10 U/L (0-41); Albumin Level 4.7 g/dL (3.5-5.2); Alkaline Phosphatase 74 U/L (40-130); Anion Gap 15.3 (5-19); Aspartate Amino Transferase 10 U/L (0-40); Blood Urea Nitrogen 14 mg/dL (6-20); Calcium 10.9 mg/dL (8.5-10.5); Carbon Dioxide 26 mmol/L (22-29); Chloride 102 mmol/L (98-107); Chol HDL Ratio 2.93 mg/dL (1.0-5.00); Cholesterol 120 mg/dL (0-200); Globulin 2.7 g/dL (1.3-4.6); Glomerular Filtration Rate 86.4 mL/min (90-130); Glucose 291 mg/dL (65-115); HDL Cholesterol 41 mg/dL (60-100); LDL Cholesterol Calculated 41 mg/dL (50-129); Osmolality Calculated 299 mOsm/kg (285-295); Potassium 4.3 mmol/L (3.5-5.1); Sodium 139 mmol/L (136-145); Total Bilirubin 0.3 mg/dL (0.15-1.2); Total Protein 7.4 g/dL (6.6-8.7); Triglycerides 192 mg/dL (0-150)
[2024-05-26 10:32] LABS: Creatinine Urine, Random 74 mg/dL (39-259)
[2024-05-26 10:46] LABS: Microalbum Creatinine Ratio Ur 838 mg/dL (0-20); Microalbumin Random Urine 62 ug/dL (0-20)
== END 2024-05-26 09:17 | disposition home or self-care (01) ==
PROVIDERS: PCP Family Medicine; Visit Provider Internal Medicine
DX: E11.9 Type 2 diabetes mellitus without complications (principal); E21.3 Hyperparathyroidism, unspecified; E78.5 Hyperlipidemia, unspecified
CPT/HCPCS: 36415; 80053; 80061; 82044; 82310; 83036; 83970; 84681

== ENCOUNTER → 2024-09-23 12:33 | Outpatient (BNVA) | payer MEDICARE, SELFPAY | PROVIDERS: PCP Family Medicine; Visit Provider Family Medicine | DX: L02.91 Cutaneous abscess, unspecified (principal) | CPT/HCPCS: 73562 ==

== ENCOUNTER → 2024-09-29 11:19 | Outpatient (BNVA) | payer MEDICARE, SELFPAY | PROVIDERS: PCP Family Medicine; Visit Provider Internal Medicine | DX: E11.9 Type 2 diabetes mellitus without complications (principal); E21.3 Hyperparathyroidism, unspecified; E78.5 Hyperlipidemia, unspecified | CPT/HCPCS: 99214 ==

== ENCOUNTER 2024-11-24 09:10 | Outpatient (CLI) | payer MEDICARE, SELFPAY ==
[2024-11-24 09:55] LABS: Alanine Aminotransferase 13 U/L (0-41); Albumin Level 4.8 g/dL (3.5-5.2); Alkaline Phosphatase 75 U/L (40-130); Anion Gap 19.2 (5-19); Aspartate Amino Transferase 14 U/L (0-40); Blood Urea Nitrogen 13 mg/dL (8-23); Calcium 10.5 mg/dL (8.5-10.5); Carbon Dioxide 24 mmol/L (22-29); Chloride 100 mmol/L (98-107); Cholesterol 158 mg/dL (0-200); Globulin 2.6 g/dL (1.3-4.6); Glucose 199 mg/dL (65-115); HDL Cholesterol 53 mg/dL (60-100); Osmolality Calculated 294 mOsm/kg (285-295); Potassium 4.2 mmol/L (3.5-5.1); Sodium 139 mmol/L (136-145); Total Protein 7.4 g/dL (6.6-8.7); Triglycerides 159 mg/dL (0-150)
[2024-11-24 09:56] LABS: Creatinine Urine, Random 62 mg/dL (39-259)
[2024-11-24 09:57] LABS: Estmated Average Glucose 232; Hemoglobin A1C 9.7 % (4.0-6.0)
[2024-11-24 10:08] LABS: Microalbum Creatinine Ratio Ur 1226 mg/dL (0-20)
== END 2024-11-24 09:11 | disposition home or self-care (01) ==
LOC: LAB 09:13
PROVIDERS: PCP Family Medicine; Visit Provider Internal Medicine
DX: E11.9 Type 2 diabetes mellitus without complications (principal); E21.3 Hyperparathyroidism, unspecified; E78.5 Hyperlipidemia, unspecified; E11.65 Type 2 diabetes mellitus with hyperglycemia; Z79.4 Long term (current) use of insulin
CPT/HCPCS: 36415; 80053; 80061; 82044; 83036; 84681; 99214

== ENCOUNTER 2024-12-05 11:55 | Outpatient (CLI) | payer MEDICARE, SELFPAY ==
--- NOTE | 2024-12-05 12:09 | MR_ITS ---
WS: [id number] MRI RIGHT lower leg without and with gadolinium enhancement INDICATION: Osteomyelitis TECHNIQUE: Axial PD, T2, coronal T1 and STIR sagittal T1 and coronal STIR and post gadolinium imaging was obtained FINDINGS: Prior postoperative changes BKA. Susceptibility artifact from surgical clips degrades some images at the distal stump. No evidence of drainable abscess or drainable fluid collection. Mild soft tissue edema involving the distal stump. Recommend correlation for cellulitis. Bony irregularity at the distal tibial amputation site with edema involving the distal cortex. Associated enhancement in this area with replacement of the normal T1 bone marrow signal at the most distal cortex suspicious for osteomyelitis. Distal fibula shaft not well evaluated due to significant susceptibility artifact from surgical clips. MR/MR lower leg RT wo/w con [id number] IMPRESSION: Small amount of suspected osteomyelitis involving the distal tibial amputation site described above.
[2024-12-05] MEDS: gadobenate dimeglumine 20 mL vial IV (13:07)
== END 2024-12-05 11:56 | disposition home or self-care (01) ==
LOC: RAD 11:56
PROVIDERS: PCP Family Medicine; Visit Provider Family Medicine
DX: T87.89 Other complications of amputation stump (principal); M86.9 Osteomyelitis, unspecified; R60.0 Localized edema; R93.89 Abnormal findings on diagnostic imaging of other specified body structures
CPT/HCPCS: 73720

== ENCOUNTER → 2024-12-11 12:52 | Outpatient (BNVA) | payer MEDICARE, SELFPAY | PROVIDERS: PCP Family Medicine; Visit Provider Internal Medicine Cardiovascular Disease | DX: I21.9 Acute myocardial infarction, unspecified (principal) | CPT/HCPCS: 93005 ==

== ENCOUNTER → 2024-12-12 09:21 | Outpatient (BNVA) | payer MEDICARE, SELFPAY | PROVIDERS: PCP Family Medicine; Visit Provider Thoracic Surgery (Cardiothoracic Vascular Surgery) | DX: I96 Gangrene, not elsewhere classified (principal); T87.81 Dehiscence of amputation stump; Y83.8 Other surgical procedures as the cause of abnormal reaction of the patient, or of later complication, without mention of misadventure at the time of the procedure; Z89.511 Acquired absence of right leg below knee | CPT/HCPCS: 87070; 87077; 87176; 87186; 87205; 99213 ==

== ENCOUNTER → 2024-12-19 10:12 | Outpatient (BNVA) | payer MEDICARE, SELFPAY | PROVIDERS: PCP Family Medicine; Visit Provider Thoracic Surgery (Cardiothoracic Vascular Surgery) | DX: I96 Gangrene, not elsewhere classified (principal); T87.81 Dehiscence of amputation stump; Y83.8 Other surgical procedures as the cause of abnormal reaction of the patient, or of later complication, without mention of misadventure at the time of the procedure; Z89.511 Acquired absence of right leg below knee | CPT/HCPCS: 97597 ==

== ENCOUNTER → 2024-12-26 15:30 | Outpatient (BNVA) | payer MEDICARE, SELFPAY | PROVIDERS: PCP Family Medicine; Visit Provider Thoracic Surgery (Cardiothoracic Vascular Surgery) | DX: Z09 Encounter for follow-up examination after completed treatment for conditions other than malignant neoplasm (principal); Z87.2 Personal history of diseases of the skin and subcutaneous tissue ==